=== PATIENT | male | born 1945 | race Caucasian/White ===

== ENCOUNTER 2017-02-08 11:18 | Emergency (ER) | payer OTHER, MEDICARE ==
--- NOTE | 2017-02-08 13:14 | EDPHY ---
H & P Time Seen by Provider: 02/08/17 11:42 HPI/ROS: HPI Left shoulder pain. 71-year-old male by private vehicle. He reports that 1 week ago he was pushing himself out of bed. He pushed off of his left hand and left shoulder felt a sudden pop to the anterior superior aspect of the left shoulder. He reports that since then he has had pain to the left shoulder. He reports the pain is worse with movement. He denies any loss of sensation or weakness in his left upper extremity. There is no history of fall or other acute traumatic event. No chest pain. No shortness of breath. ROS: Constitutional: No fever, no chills. No weakness. Eyes: No discharge. No changes in vision. ENT: No sore throat. No nasal congestion or rhinorrhea. Respiratory: No cough. No shortness of breath. Cardiac: No chest pain, no palpitations. Gastrointestinal: No abdominal pain, no vomiting, no diarrhea. Genitourinary: No hematuria. No dysuria or increased frequency with urination. Musculoskeletal: No back pain. No neck pain. No myalgias or arthralgias. Skin: No rashes. Neurological: No headache. No focal weakness or altered sensation. Past medical history: Coronary artery disease, diabetes, renal insufficiency, hypertension, chronic pain, opiate dependence, CABG, stents, peripheral neuropathy, hypoxia, obesity. Social history: He is and lives with his . Denies smoking. Physical Exam: General Appearance: Alert, no distress. Obese habitus. This patient is responding to questions appropriately and in full sentences. This patient appears well-hydrated and well-nourished. Eyes: Pupils equal and round no pallor or injection. No lid edema, erythema or injection. Left shoulder exam: The axillary nerve distribution is intact. The left upper extremity is intact. Palpable radial pulses with normal capillary refill in all digits. Normal motor function and sensation in all dermatomes and myotomes of the left upper extremity. No obvious asymmetrical deformity on gross inspection of left shoulder in comparison to the right shoulder. He does have pain with passive and active ranging of motion in flexion, extension, AB duction and rotation of the left shoulder. There is no soft tissue changes associated. Specifically no ecchymosis, no swelling, no erythema or warmth. No asymmetric swelling of the left upper extremity relative to the right upper extremity. Neurological: Motor sensory function is grossly intact. Cranial nerves are normal. Gait is normal. Skin: Warm and dry, no rashes. Musculoskeletal: Neck is supple and nontender. As above Extremities are symmetrical. All joints range without pain or impingement except noted above. Psychiatric: No agitation. No depression. Database: EKG: Imaging: Left shoulder x-ray series: The humeral head is normally located in the glenoid fossa. There is no evidence of fracture or subluxation. The bony alignment is normal. Interpreted by me. Procedures: Emergency department course: Patient sent for x-rays right after my evaluation. Patient re-evaluated at 1: 10 p.m.. Results of x-rays discussed. Diagnosis of possible rotator cuff injury versus an adhesive capsulitis type syndrome discussed with him. Left upper extremity was placed in a sling. Plan will be to have him follow up with Orthopedics for re-evaluation and further management. He is in agreement with this. He has narcotic pain medications which she has been taking chronically. He is in agreement with this plan. He understands his follow-up. Return to emergency department precautions reviewed. All of his questions were answered. He was discharged in good condition. Differential Diagnosis: The differential diagnosis on this patient includes but is not limited to adhesive capsulitis, rotator cuff injury. Fracture, subluxation, dislocation, acute coronary syndrome unlikely. This represents a partial list of diagnoses considered. These considerations are based on history, physical exam, past history, reassessment and diagnostic testing. Smoking Status: Former smoker Constitutional: Initial Vital Signs Temperature (C) 36.8 C 02/08/17 11:21 Heart Rate 84 02/08/17 11:21 Respiratory Rate 18 02/08/17 11:21 Blood Pressure 148/79 H 02/08/17 11:21 O2 Delivery Mode Room Air Allergies/Adverse Reactions: hydroxyzine HCl [From Vistaril] Allergy (Intermediate, Verified 05/11/16 02:51) hydroxyzine pamoate [From Vistaril] Allergy (Intermediate, Verified 05/11/16 02: 51) flurazepam HCl [From Dalmane] Allergy (Mild, Verified 05/11/16 02:51) trazodone Allergy (Mild, Verified 05/11/16 02:51) propoxyphene HCl [From Darvon] Allergy (Verified 05/11/16 02:51) zolpidem tartrate [From Ambien] Allergy (Verified 05/11/16 02:51) Home Medications: Medication Instructions Recorded ATORVASTATIN CALCIUM [Lipitor 80 40 mg PO DAILY 06/05/11 mg] Aspirin [Aspirin 325 mg (*)] 325 mg PO DAILY 06/05/11 Clopidogrel Bisulfate [Plavix (*)] 75 mg PO DAILY 06/05/11 Furosemide [Lasix 80 MG (*)] 40 mg PO DAILY 06/05/11 Losartan Potassium [Cozaar 50 mg 50 mg PO DAILY 06/05/11 (*)] Pregabalin [LYRICA] 300 mg PO BID 06/05/11 Triamcinolone Acet Nasal [Nasacort 1 sprays NASAL DAILY 06/05/11 Aq] Metoprolol Succinate Xr [Toprol Xl 25 mg PO DAILY 01/03/15 25 mg (*)] Pantoprazole Sodium [Protonix 40mg 40 mg PO DAILY 01/03/15 (*)] Spironolactone [Aldactone] 50 mg PO DAILY 01/03/15 clonazePAM [Klonopin (*)] 0.5 mg PO BID PRN 01/03/15 oxyCODONE CR [Oxycontin] 80 mg PO BID 01/03/15 oxyCODONE IR [Oxycodone Ir (*)] 30 mg PO Q6 PRN 01/03/15 DULoxetine [Cymbalta 30 MG (*)] 90 mg PO DAILY 05/11/16 Testosterone 5 gm TP Q2D 05/13/16 Insulin Glargine [Lantus 100 10 units SC HS #0 ml 05/20/16 UNITS/ML (*)] Insulin Lispro [Humalog] 100 unit SQ ACHS #0 ml 05/20/16 Pregabalin [Lyrica] 25 mg PO BID #0 cap 05/20/16 Protocol Potassium 1 dose MISC AD PRN #0 dose 05/20/16 Spironolactone [Aldactone 25 MG 50 mg PO DAILY #0 tab 05/20/16 (*)] Departure - Departure Disposition: Home, Routine, Self-Care Clinical Impression: Injury of left shoulder Condition: Good Instructions: Rotator Cuff Injury (ED), Shoulder Sprain (ED) Additional Instructions: Read and follow provided instructions. Follow-up with your credit collections specialist or with Dr. Colleen Junior of the Orthopedic service as referred to you for re-evaluation and further management in the next 2-3 days. You may require an MRI of your left shoulder for further diagnosis. Take your pain medication as prescribed. Return to the emergency department for worsening pain, loss of sensation or weakness in her left upper extremity or other serious concerns. Referrals: Kristina Isbell MD [Primary Care Provider] - As per Instructions Colleen Junior MD [Medical Doctor] - As per Instructions
[2017-02-08 13:32] VITALS: BP 126/90; PULSE 85; RESP 18; TEMP 97.5; O2SAT 92
== END 2017-02-08 13:33 | disposition home or self-care (01) ==
DX: S49.92XA Unspecified injury of left shoulder and upper arm, initial encounter (principal); I25.810 Atherosclerosis of coronary artery bypass graft(s) without angina pectoris; E11.9 Type 2 diabetes mellitus without complications; I10 Essential (primary) hypertension; Z95.5 Presence of coronary angioplasty implant and graft; Z87.891 Personal history of nicotine dependence; Z79.82 Long term (current) use of aspirin; Z79.4 Long term (current) use of insulin; X58.XXXA Exposure to other specified factors, initial encounter; Y93.89 Activity, other specified

== ENCOUNTER → 2017-02-28 | Outpatient (CLI) | payer OTHER, MEDICARE | LOC: FIMAGING 12:15 | PROVIDERS: ATTEND Surgery | DX: L97.519 Non-pressure chronic ulcer of other part of right foot with unspecified severity (principal) ==

== ENCOUNTER 2017-03-23 21:10 | Emergency (ER) | payer OTHER, MEDICARE ==
--- NOTE | 2017-03-23 22:50 | EDPHY ---
H & P Time Seen by Provider: 03/23/17 21:17 HPI/ROS: CHIEF COMPLAINT: Fall, left ear laceration HISTORY OF PRESENT ILLNESS: 71-year-old male presents to the emergency department with a laceration to his left ear. The patient was at home and he tripped over a piece of exercise equipment and fell and cut his left ear. The incident happened just prior to arrival. He did not lose consciousness. He denies a headache. Denies neck or back pain. Denies chest pain or difficulty breathing. Denies abdominal pain. Denies any presyncopal symptoms prior to his fall. He believes his tetanus shot is current. REVIEW OF SYSTEMS: Constitutional: No fever, no chills. Eyes: No double or blurry vision. ENT: No sore throat. Respiratory: No cough, no shortness of breath. Cardiac: No chest pain. Gastrointestinal: No abdominal pain, vomiting or diarrhea. Genitourinary: No dysuria. Musculoskeletal: No neck or back pain. Skin: Laceration left ear as above. No rashes. Neurological: No headache. 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 Mentating normally and answering questions appropriately. His is at bedside. Eyes: Pupils equal and round. Extraocular motions are all intact. ENT: Mouth: Mucous membranes moist. 3.5 cm laceration extending from the left mid antehelix to mary. No active bleeding noted. The laceration does not extend into the external auditory canal. Tympanic membrane is intact. There is no bruising or swelling or pain with palpation over the left mastoid bone. Respiratory: No wheezing, rhonchi, or rales, lungs are clear to auscultation. Cardiovascular: Regular rate and rhythm. Gastrointestinal: Abdomen is soft and nontender, no masses, no rebound or guarding, bowel sounds normal. Neurological: Alert and oriented x 3, cranial nerves II through XII grossly intact Skin: Laceration to left ear as described above. Warm and dry, no rashes. Musculoskeletal: Nontender to palpate along the cervical, thoracic or lumbar spine. Neck is supple. Extremities: Full range of motion and no peripheral edema. Right posterior lateral foot has a chronic infection. The dressing was removed. He has daily dressing changes by home health. There is no purulent drainage. There is packing in place that was not removed. His dressing was replaced. Psychiatric: Patient is oriented X 3, there is no agitation. Constitutional: Initial Vital Signs Temperature (C) 36.9 C 03/23/17 21:13 Heart Rate 62 03/23/17 21:13 Respiratory Rate 17 03/23/17 21:13 Blood Pressure 145/85 H 03/23/17 21:13 O2 Sat (%) 90 L 03/23/17 21:13 O2 Delivery Mode Room Air Allergies/Adverse Reactions: hydroxyzine HCl [From Vistaril] Allergy (Intermediate, Verified 05/11/16 02:51) hydroxyzine pamoate [From Vistaril] Allergy (Intermediate, Verified 05/11/16 02: 51) flurazepam HCl [From Dalmane] Allergy (Mild, Verified 05/11/16 02:51) trazodone Allergy (Mild, Verified 05/11/16 02:51) propoxyphene HCl [From Darvon] Allergy (Verified 05/11/16 02:51) zolpidem tartrate [From Ambien] Allergy (Verified 05/11/16 02:51) Home Medications: Medication Instructions Recorded ATORVASTATIN CALCIUM [Lipitor 80 40 mg PO DAILY 06/05/11 mg] Aspirin [Aspirin 325 mg (*)] 325 mg PO DAILY 06/05/11 Clopidogrel Bisulfate [Plavix (*)] 75 mg PO DAILY 06/05/11 Furosemide [Lasix 80 MG (*)] 40 mg PO DAILY 06/05/11 Losartan Potassium [Cozaar 50 mg 50 mg PO DAILY 06/05/11 (*)] Pregabalin [LYRICA] 300 mg PO BID 06/05/11 Triamcinolone Acet Nasal [Nasacort 1 sprays NASAL DAILY 06/05/11 Aq] Metoprolol Succinate Xr [Toprol Xl 25 mg PO DAILY 01/03/15 25 mg (*)] Pantoprazole Sodium [Protonix 40mg 40 mg PO DAILY 01/03/15 (*)] Spironolactone [Aldactone] 50 mg PO DAILY 01/03/15 clonazePAM [Klonopin (*)] 0.5 mg PO BID PRN 01/03/15 oxyCODONE CR [Oxycontin] 80 mg PO BID 01/03/15 oxyCODONE IR [Oxycodone Ir (*)] 30 mg PO Q6 PRN 01/03/15 DULoxetine [Cymbalta 30 MG (*)] 90 mg PO DAILY 05/11/16 Testosterone 5 gm TP Q2D 05/13/16 Insulin Glargine [Lantus 100 10 units SC HS #0 ml 05/20/16 UNITS/ML (*)] Insulin Lispro [Humalog] 100 unit SQ ACHS #0 ml 05/20/16 Pregabalin [Lyrica] 25 mg PO BID #0 cap 05/20/16 Protocol Potassium 1 dose MISC AD PRN #0 dose 05/20/16 Spironolactone [Aldactone 25 MG 50 mg PO DAILY #0 tab 05/20/16 (*)] Medical Decision Making Procedures: Laceration repair. Verbal consent was obtained from the patient. The the 3.5 cm laceration on the left ear was anesthetized using 1% lidocaine with epinephrine. The wound was irrigated with saline, draped and explored to its base with a gloved finger. There were no deep structures involved. The wound was repaired with 6 0 Ethilon, 12 sutures. The wound repair was complex. The procedure was performed by myself. ED Course/Re-evaluation: 71-year-old male with mechanical fall presents with left ear injury. The wound was repaired, see procedure note. Patient was given wound care precautions. I do not think any imaging studies are indicated. Patient feels comfortable being discharged home. Differential Diagnosis: Head injury including but not limited to concussion, skull fracture, intraparenchymal contusion, subarachnoid, subdural and epidural hematoma. Departure - Departure Disposition: Home, Routine, Self-Care Clinical Impression: Laceration of left ear, external Qualifiers: Encounter type: initial encounter Qualified Code(s): S01.312A - Laceration without foreign body of left ear, initial encounter Condition: Good Instructions: Care For Your Stitches (ED), Laceration (ED), Acute Wounds (ED) Additional Instructions: Wound Care Follow-Up: Removal of sutures in 7 days. Suture removal is complimentary in uncomplicated cases. Infection or abnormal findings would require reevaluation by the MD. In that case, you may be billed. Return if you notice any signs or symptoms of infection such as redness, swelling, increased pain, fever, purulent drainage. Referrals: Kristina Isbell MD [Primary Care Provider] - As per Instructions
[2017-03-23 23:07] VITALS: BP 117/70; PULSE 63; RESP 16; TEMP 97.9; O2SAT 94
== END 2017-03-23 23:07 | disposition home or self-care (01) ==
PROC: 09Q1XZZ Repair Left External Ear, External Approach (ICD-10-PCS; principal; 2017-03-23)
DX: S01.312A Laceration without foreign body of left ear, initial encounter (principal); I25.810 Atherosclerosis of coronary artery bypass graft(s) without angina pectoris; I10 Essential (primary) hypertension; Z79.82 Long term (current) use of aspirin; Z95.5 Presence of coronary angioplasty implant and graft; Z87.891 Personal history of nicotine dependence; W01.0XXA Fall on same level from slipping, tripping and stumbling without subsequent striking against object, initial encounter; Y92.009 Unspecified place in unspecified non-institutional (private) residence as the place of occurrence of the external cause

== ENCOUNTER → 2017-04-05 | Outpatient (CLI) | payer OTHER, MEDICARE | LOC: BHFA 08:30 | PROVIDERS: ATTEND Internal Medicine Cardiovascular Disease | DX: I25.10 Atherosclerotic heart disease of native coronary artery without angina pectoris (principal) | CPT/HCPCS: 78452; 93017; A9500; J2785 ==

== ENCOUNTER → 2017-04-27 | Outpatient (CLI) | payer OTHER, MEDICARE | LOC: BHFA 14:00 | PROVIDERS: ATTEND Internal Medicine Cardiovascular Disease | DX: Z01.818 Encounter for other preprocedural examination (principal); I25.10 Atherosclerotic heart disease of native coronary artery without angina pectoris ==

== ENCOUNTER 2017-05-25 06:13 | Observation (INO) | payer OTHER, MEDICARE ==
[2017-05-25] MEDS ORDERED: LR 1,000 ML IV ONE (06:23)
[2017-05-25] MEDS ORDERED: BUPIVACAINE 0.5% 30 ML SDV ONE (07:12)
[2017-05-25] MEDS ORDERED: VANCOMYCIN PHARMACY TO DOSE MISC ONE (07:26)
--- NOTE | 2017-05-25 07:26 | PDHPUP ---
History & Physical Update H&P update statement: This history and physical update is based on an assessment of the patient which was completed after admission or registration (within 24 hours), but prior to the surgery/procedure. H&P update: H&P reviewed & patient examined, no change in patient's condition since H&P completed
--- NOTE | 2017-05-25 07:43 | PDANEPAE ---
ANE Past Medical History - Cardiovascular History Hx Hypertension: Yes Hx Arrhythmias: No Hx Chest Pain: No Hx Coronary Artery / Peripheral Vascular Disease: Yes Hx CHF / Valvular Disease: No Cardiovascular History Comment: STENTS X3. GABG X4. PULMONARY HTN - Pulmonary History Hx COPD: No Hx Asthma/Reactive Airway Disease: No Hx Recent Upper Respiratory Infection: No Hx Oxygen in Use at Home: No Hx Sleep Apnea: Yes Sleep Apnea Screening Result - Last Documented: Positive Pulmonary History Comment: CONSTANTIN USES C-PAP WILL ONLY BRING MASK. SINUS INFECTION 02/2017. PNEUMONIA 2014 - Neurologic History Hx Cerebrovascular Accident: No Hx Seizures: No Hx Dementia: No - Endocrine History Hx Diabetes: Yes Endocrine History Comment: IDDM - Renal History Hx Renal Disorders: Yes Renal History Comment: CHRONIC KIDNEY DISEASE STAGE 3. NOCTURIA - Liver History Hx Hepatic Disorders: No - Neurological & Psychiatric Hx Hx Neurological and Psychiatric Disorders: Yes Neurological / Psychiatric History Comment: ANXIETY AND DEPRESSION - Cancer History Hx Cancer: No - Congenital Disorder History Hx Congenital Disorders: No - GI History Hx Gastrointestinal Disorders: Yes Gastrointestinal History Comment: GERD - Other Health History Other Health History: FOOT INFECTION/ULCER/SEPSIS. RESULT OF STEPPING ON IAN NAIL. PERIPHERAL NEUROPATHY - Chronic Pain History Chronic Pain: Yes (LUMBAR SPINE,RT FOOT) - Surgical History Prior Surgeries: GABG X4 96. LUMBAR LAMINECTOMY. RT FOOTDEBRIDEMENT/SEPSIS 2015 ANE Review of Systems - Exercise capacity METS (RN): 4 METS ANE Patient History - Allergies Allergies/Adverse Reactions: hydroxyzine HCl [From Vistaril] Allergy (Intermediate, Verified 05/11/16 02:51) hydroxyzine pamoate [From Vistaril] Allergy (Intermediate, Verified 05/11/16 02: 51) flurazepam HCl [From Dalmane] Allergy (Mild, Verified 05/11/16 02:51) trazodone Allergy (Mild, Verified 05/11/16 02:51) propoxyphene HCl [From Darvon] Allergy (Verified 05/11/16 02:51) zolpidem tartrate [From Ambien] Allergy (Verified 05/11/16 02:51) - Home Medications Home Medications: ATORVASTATIN CALCIUM [Lipitor 80 mg] 40 mg PO HS 06/05/11 [Last Taken 05/24/17 21:00] Aspirin [Aspirin 325 mg (*)] 325 mg PO DAILY 06/05/11 [Last Taken 05/24/17 21:00 ] Clopidogrel Bisulfate [Plavix (*)] 75 mg PO DAILY 06/05/11 [Last Taken 05/22/17] Furosemide [Lasix 80 MG (*)] 40 mg PO DAILY 06/05/11 [Last Taken 05/24/17 21:00] Losartan Potassium [Cozaar 50 mg (*)] 50 mg PO DAILY 06/05/11 [Last Taken 09:00] Pregabalin [LYRICA] 300 mg PO BID 06/05/11 [Last Taken 05/24/17 21:00] Triamcinolone Acet Nasal [Nasacort Aq] 1 sprays NASAL DAILY 06/05/11 [Last Taken 05/24/17 09:00] Metoprolol Succinate Xr [Toprol Xl 25 mg (*)] 25 mg PO DAILY 01/03/15 [Last Taken 05/24/17 09:00] Pantoprazole Sodium [Protonix 40mg (*)] 40 mg PO DAILY 01/03/15 [Last Taken 09:00] Spironolactone [Aldactone] 50 mg PO HS 01/03/15 [Last Taken 05/24/17 09:00] oxyCODONE CR [Oxycontin] 80 mg PO BID 01/03/15 [Last Taken 05/24/17 21:00] DULoxetine [Cymbalta 30 MG (*)] 60 mg PO HS 05/11/16 [Last Taken 05/24/17 21:00] Testosterone 5 gm TP Q2D 05/13/16 [Last Taken 05/24/17 09:00] Insulin Glargine [Lantus 100 UNITS/ML (*)] 50 units SC DAILY 05/24/17 [Last Taken Unknown] - NPO status NPO Since - Liquids (Date): 05/25/17 NPO Since - Liquids (Time): 05:30 NPO Since - Solids (Date): 05/25/17 NPO Since - Solids (Time): 00:00 - Anes Hx Anes Hx: no prior problems - Smoking Hx Smoking Status: Former smoker - Alcohol Use Alcohol Use: None ANE Labs/Vital Signs - Vital Signs Blood Pressure: 152/86 Heart Rate: 69 Respiratory Rate: 18 O2 Sat (%): 90 Height: 172.72 cm Weight: 109.769 kg ANE Physical Exam - Airway Mallampati Score: Class 3 Mouth exam: poor dentition - Pulmonary Pulmonary: no respiratory distress, clear to auscultation - Cardiovascular Cardiovascular: regular rate and rhythym - ASA Status ASA Status: III ANE Anesthesia Plan Anesthesia Plan: GA w LMA
[2017-05-25] MEDS ORDERED: MIDAZOLAM 2 MG/2 ML VIAL IVP ONE (07:45)
[2017-05-25] MEDS ORDERED: MIDAZOLAM 2 MG/2 ML VIAL ONE (07:48)
[2017-05-25] MEDS ORDERED: VANCOMYCIN 1.5 GM in D5W 250 ML IV ONE (08:00)
[2017-05-25] MEDS ORDERED: PROPOFOL 200 MG/20 ML VIAL ONE (08:03)
[2017-05-25] MEDS ORDERED: fentaNYL 100 MCG/2 ML INJ ONE (08:03)
[2017-05-25] MEDS ORDERED: NALOXONE HCL 0.4 MG/ML INJ IVP PRN (08:52)
[2017-05-25] MEDS ORDERED: PROMETHAZINE HCL 25 MG/ML INJ IVP PRN (08:52)
[2017-05-25] MEDS ORDERED: ONDANSETRON 4 MG/2 ML VIAL IVP PRN ×3 (08:52→13:19)
[2017-05-25] MEDS ORDERED: fentaNYL 100 MCG/2 ML INJ IVP PRN (08:52)
--- NOTE | 2017-05-25 09:02 | POSTOPPROG ---
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
--- NOTE | 2017-05-25 11:37 | POSTANESTH ---
Post Anesthetic Evaluation Cardiovascular Status: Normal, Stable Respiratory Status: Normal, Stable Level of Consciousness/Mental Status: Can Participate in Eval, Alert and Oriented Pain Control: Adequate, Prn Tx Ordered Nausea/Vomiting Control: Adequate, Prn Tx Ordered Complications Possibly Related to Anesthesia: None Noted
[2017-05-25] MEDS ORDERED: HYDROmorphONE/DILAUDID 1 MG/ML SYR IVP PRN (13:19)
[2017-05-25] MEDS: OXYCODONE/APAP 5/325 TAB PO PRN ×2 (17:47→21:57)
[2017-05-25] MEDS ORDERED: ATORVASTATIN CALCIUM 40 MG PO SCH (21:00)
[2017-05-25] MEDS ORDERED: DULoxetine 30 MG CAP PO SCH (21:00)
[2017-05-25] MEDS ORDERED: ATORVASTATIN CALCIUM 40 MG TAB PO SCH (21:00)
[2017-05-25] MEDS ORDERED: PREGABALIN 300 MG PO SCH (21:00)
[2017-05-25] MEDS ORDERED: SPIRONOLACTONE 50 MG TAB PO SCH (21:00)
[2017-05-25] MEDS: PREGABALIN 150 MG CAP PO SCH (21:53)
[2017-05-25] MEDS ORDERED: INSULIN GLARGINE 100 UNITS/ML SYRINGE SC ONE (23:45)
[2017-05-26] MEDS: OXYCODONE/APAP 5/325 TAB PO PRN (05:18)
[2017-05-26] MEDS: PREGABALIN 150 MG CAP PO SCH (08:44)
[2017-05-26] MEDS ORDERED: METOPROLOL SUCCINATE XR 25 MG TAB PO SCH (09:00)
[2017-05-26] MEDS ORDERED: FUROSEMIDE 80 MG TAB PO SCH (09:00)
[2017-05-26] MEDS ORDERED: CLOPIDOGREL BISULFATE 75 MG TAB PO SCH (09:00)
[2017-05-26] MEDS ORDERED: TRIAMCINOLONE ACET NASAL SCH (09:00)
[2017-05-26] MEDS ORDERED: PANTOPRAZOLE SODIUM 40 MG TAB PO SCH (09:00)
[2017-05-26] MEDS ORDERED: INSULIN GLARGINE 100 UNITS/ML SYRINGE SC SCH (09:00)
[2017-05-26] MEDS ORDERED: LOSARTAN POTASSIUM 50 MG TAB PO SCH (09:00)
[2017-05-26] MEDS ORDERED: TESTOSTERONE 1% 5 GM GEL PKT TD SCH (09:00)
[2017-05-26] MEDS ORDERED: ASPIRIN 325 MG TAB PO SCH (09:00)
[2017-05-26 11:20] VITALS: BP 120/70; PULSE 63; RESP 16; TEMP 98; O2SAT 97
[2017-05-26] MEDS ORDERED: ceFAZolin 2 GM/DEXTROSE 100 ML IV ONE (12:00)
--- NOTE | 2017-05-26 13:12 | SOAPPROG ---
SOAP Progress Note Assessment/Plan: Assessment: WOUND OK/ AFEBRILE/ NO PROBLEMS Plan:HOME/ OFFICE Sunday05/26/17 13:11 Objective: Vital Signs Temp Pulse Resp BP Pulse Ox 36.7 C 63 16 120/70 97 05/26/17 11:19 05/26/17 11:19 05/26/17 11:19 05/26/17 11:19 05/26/17 11:19 Microbiology 05/25/17 08:45 Gram Stain - Final Toe - Bone 05/25/17 05/26/17 05/27/17 05:59 05:59 05:59 Intake Total 1250 Output Total 500 Balance 750 ICD10 Worksheet Patient Problems: Problems Problem Status Onset Cellulitis Acute Chronic Disease Mgmt/Transitional Care Acute Laceration of left ear, external Acute Sepsis Acute
[2017-05-27] MEDS ORDERED: TESTOSTERONE 1% 5 GM GEL PKT TD SCH (09:00)
== END 2017-05-26 14:02 | disposition home or self-care (01) ==
LOC: F3N 06:13 → FSGY 06:13 → UNDOADMOB 06:13 → INTOOBSV 06:14 → F3N 06:14 → EDSTATUS 07:15 → F3N 14:11
PROVIDERS: ADMIT Surgery; ATTEND Surgery
PROC: 0Y6M0Z8 Detachment at Right Foot, Complete 5th Ray, Open Approach (ICD-10-PCS; principal; 2017-05-25 07:15)
DX: L97.514 Non-pressure chronic ulcer of other part of right foot with necrosis of bone (principal); M86.171 Other acute osteomyelitis, right ankle and foot; Z95.1 Presence of aortocoronary bypass graft; Z95.5 Presence of coronary angioplasty implant and graft; I27.2 Other secondary pulmonary hypertension
CPT/HCPCS: 28805; 97161; 97165; G8978; G8979; G8980; G8987; G8988; G8989; J0690; J1815; J2250; J2704; J3010; J3370

== ENCOUNTER 2017-06-03 09:14 | Inpatient (IN) | payer OTHER, MEDICARE ==
--- NOTE | 2017-06-03 10:06 | EDPHY ---
H & P Time Seen by Provider: 06/03/17 09:23 HPI/ROS: Chief complaint. Possible postop infection, diarrhea HPI. 71-year-old male history of insulin-dependent diabetes had right 5th metatarsal amputation May 25 secondary to osteomyelitis. It has continued to ooze and bleed with the family changing dressings daily. He has diarrhea that began yesterday. The patient had been on cephalexin for 2 months prior to his surgery. He has no nausea or vomiting. He does have some abdominal cramping. No fever. New redness across the dorsum of his foot ROS Constitutional. no fever/chills, no weakness Eyes. no problems with vision ENT. no sore throat, no nasal drainage Cardiovascular. no chest pain Respiratory. no shortness of breath, no cough Abdominal. Crampy abdominal pain with diarrhea . no problems urinating MS. Recent amputation of the right 5th metatarsal and toe Skin. erythema to dorsum of foot Lymph. no swollen glands Neuro. no headache, no dizziness, no difficulty walking or with speech Past Medical/Surgical History: Past medical history significant coronary artery disease status post coronary artery bypass graft. Insulin-dependent diabetes, chronic renal insufficiency, hypertension, chronic pain, neuropathy Social History: , nonsmoker, no alcohol Smoking Status: Former smoker Physical Exam: General Appearance: Alert well-developed male mild distress vital signs are stable. Afebrile Eyes: Pupils equal and round no pallor or injection. ENT, Mouth: Mucous membranes are moist. Respiratory: There are no retractions, lungs are clear to auscultation. Cardiovascular: Regular rate and rhythm. Gastrointestinal: Abdomen is soft with mild tenderness. No masses. Bowel sounds are normal Neurological: Awake and alert, sensory and motor exams grossly normal. Skin: Warm and dry, no rashes. Musculoskeletal: Neck is supple nontender. Extremities sequelae of 5th metatarsal amputation 10 days ago. There is erythema on the dorsum of the foot. There is mild serous drainage from the wound. Psychiatric: Patient is oriented X 3, there is no agitation. Constitutional: Initial Vital Signs Temperature (C) 36.5 C 06/03/17 09:15 Heart Rate 89 06/03/17 09:15 Respiratory Rate 16 06/03/17 09:15 Blood Pressure 130/78 H 06/03/17 09:15 O2 Sat (%) 93 06/03/17 09:15 O2 Delivery Mode Room Air Allergies/Adverse Reactions: hydroxyzine HCl [From Vistaril] Allergy (Intermediate, Verified 05/11/16 02:51) hydroxyzine pamoate [From Vistaril] Allergy (Intermediate, Verified 05/11/16 02: 51) flurazepam HCl [From Dalmane] Allergy (Mild, Verified 05/11/16 02:51) trazodone Allergy (Mild, Verified 05/11/16 02:51) propoxyphene HCl [From Darvon] Allergy (Verified 05/11/16 02:51) zolpidem tartrate [From Ambien] Allergy (Verified 05/11/16 02:51) Home Medications: Medication Instructions Recorded ATORVASTATIN CALCIUM [Lipitor 80 40 mg PO HS 06/05/11 mg] Aspirin [Aspirin 325 mg (*)] 325 mg PO HS 06/05/11 Clopidogrel Bisulfate [Plavix (*)] 75 mg PO DAILY 06/05/11 Furosemide [Lasix 80 MG (*)] 40 mg PO HS 06/05/11 Losartan Potassium [Cozaar 50 mg 50 mg PO DAILY 06/05/11 (*)] Pregabalin [LYRICA] 300 mg PO BID 06/05/11 Triamcinolone Acet Nasal [Nasacort 1 sprays NASAL DAILY 06/05/11 Aq] Metoprolol Succinate Xr [Toprol Xl 25 mg PO DAILY 01/03/15 25 mg (*)] Pantoprazole Sodium [Protonix 40mg 40 mg PO DAILY 01/03/15 (*)] oxyCODONE CR [Oxycontin] 80 mg PO BID 01/03/15 DULoxetine [Cymbalta 30 MG (*)] 60 mg PO HS 05/11/16 Testosterone 5 gm TP Q2D 05/13/16 Insulin Glargine [Lantus 100 50 units SC DAILY 05/24/17 UNITS/ML (*)] Cephalexin [Keflex (*)] 500 mg PO TID 05/25/17 Medical Decision Making Procedures: IV normal saline. Stool sample ED Course/Re-evaluation: I consulted and discussed the case with Dr. Wilkins who will see the patient in the emergency department Patient stool sample comes back for Clostridium difficile. Patient and I discussed laboratory evaluation, treatment plan including recommendation for admission. Patient expresses understanding and agreement I consulted discussed case with Dr. Beatris Herrera who agrees to the admission Differential Diagnosis: Recent surgery for osteomyelitis. He has cellulitis of the wound. Patient is insulin-dependent diabetic and has poor blood sugar control with hyperglycemia at about 360. No evidence for DKA however. He also now has Clostridium difficile too - Data Points Laboratory Results: Laboratory Results 06/03/17 10:25 06/03/17 10:25 06/03/17 06/03/17 06/03/17 10:25 10:25 10:10 WBC 7.44 10^3/uL 10^3/uL (3.80-9.50) RBC 5.86 10^6/uL 10^6/uL (4.40-6.38) Hgb 15.5 g/dL g/dL (13.7-17.5) Hct 49.1 % % (40.0-51.0) MCV 83.8 fL fL (81.5-99.8) MCH 26.5 pg L pg (27.9-34.1) MCHC 31.6 g/dL L g/dL (32.4-36.7) RDW 14.7 % % (11.5-15.2) Plt Count 218 10^3/uL 10^3/uL (150-400) MPV 11.3 fL fL (8.7-11.7) Neut % (Auto) 68.3 % % (39.3-74.2) Lymph % (Auto) 19.6 % % (15.0-45.0) [place] % (Auto) 8.6 % % (4.5-13.0) Eos % (Auto) 3.1 % % (0.6-7.6) Baso % (Auto) 0.3 % % (0.3-1.7) Nucleat RBC Rel Count 0.0 % % (0.0-0.2) Absolute Neuts (auto) 5.08 10^3/uL 10^3/uL (1.70-6.50) Absolute Lymphs (auto) 1.46 10^3/uL 10^3/uL (1.00-3.00) Absolute Monos (auto) 0.64 10^3/uL 10^3/uL (0.30-0.80) Absolute Eos (auto) 0.23 10^3/uL 10^3/uL (0.03-0.40) Absolute Basos (auto) 0.02 10^3/uL 10^3/uL (0.02-0.10) Absolute Nucleated RBC 0.00 10^3/uL 10^3/uL (0-0.01) Immature Gran % 0.1 % % (0.0-1.1) Immature Gran # 0.01 10^3/uL 10^3/uL (0.00-0.10) Sodium 132 mEq/L L mEq/L (134-144) Potassium 5.4 mEq/L H mEq/L (3.5-5.2) Chloride 95 mEq/L L mEq/L (97-110) Carbon Dioxide 25 mEq/l mEq/l (22-31) Anion Gap 12 mEq/L mEq/L (8-16) BUN 31 mg/dL H mg/dL (7-23) Creatinine 1.6 mg/dL H mg/dL (0.7-1.3) Estimated GFR 43 Glucose 374 mg/dL H mg/dL (70-100) Calcium 9.7 mg/dL mg/dL (8.5-10.4) Urine Color PALE YELLOW Urine Appearance CLEAR Urine pH 6.0 (5.0-7.5) Ur Specific [place] 1.023 (1.002-1.030) Urine Protein NEGATIVE (NEGATIVE) Urine Ketones NEGATIVE (NEGATIVE) Urine Blood NEGATIVE (NEGATIVE) Urine Nitrate NEGATIVE (NEGATIVE) Urine Bilirubin NEGATIVE (NEGATIVE) Urine Urobilinogen NEGATIVE EU EU (0.2-1.0) Ur Leukocyte Esterase NEGATIVE (NEGATIVE) Urine RBC NONE SEEN /hpf /hpf (0-3) Urine WBC 1-3 /hpf /hpf (0-3) Ur Epithelial Cells NONE SEEN /lpf /lpf (NONE-1+) Urine Mucus TRACE /lpf /lpf (NONE-1+) Urine Glucose 3+ H (NEGATIVE) Microbiology Results: MICROBIOLOGY 06/03/17 10:10 Stool Gastrointestinal Tract Panel (PCR) - Final Clostridium Difficile Detected E.coli Enteropathogenic(Epec) Departure - Departure Disposition: [facility] Inpatient Acute Clinical Impression: Clostridium difficile diarrhea Cellulitis Qualifiers: Site of cellulitis: extremity Site of cellulitis of extremity: lower extremity Laterality: right Qualified Code(s): L03.115 - Cellulitis of right lower limb Condition: Fair Referrals: Kristina Isbell MD [Primary Care Provider] - As per Instructions
[2017-06-03 10:38] LABS: COLOR PALE YELLOW; LEUKOCYTE ESTERASE,URINE NEGATIVE (NEGATIVE); NITRITE,URINE NEGATIVE (NEGATIVE)
[2017-06-03 10:43] LABS: MUCUS TRACE /lpf (NONE-1+); RBC,URINE NONE SEEN /hpf (0-3)
[2017-06-03 11:34] LABS: % IMMATURE GRANULYOCYTES 0.1 % (0.0-1.1); ABSOLUTE IMMATURE GRANULOCYTES 0.01 10^3/uL (0.00-0.10); ADD DIFF? NO; ADD MORPH? NO; ADD SCAN? NO; ATYPICAL LYMPHOCYTE FLAG 0 (0-99); FRAGMENT RBC FLAG 0 (0-99); HEMATOCRIT 49.1 % (40.0-51.0); HEMOGLOBIN 15.5 g/dL (13.7-17.5); LEFT SHIFT FLG 0 (0-99); LIPEMIA HEMOLYSIS FLAG 80 (0-99); MEAN CELL HEMOGLOBIN 26.5 pg (27.9-34.1); MEAN CELL HEMOGLOBIN CONCENTR. 31.6 g/dL (32.4-36.7); MEAN CELL VOLUME 83.8 fL (81.5-99.8); MEAN PLATELET VOLUME 11.3 fL (8.7-11.7); PLATELET CLUMPS FLAG 10 (0-99); PLATELET COUNT 218 10^3/uL (150-400); RED BLOOD CELL COUNT 5.86 10^6/uL (4.40-6.38); RED CELL DISTRIBUTION WIDTH 14.7 % (11.5-15.2)
[2017-06-03 11:40] LABS: ANION GAP 12 mEq/L (8-16); CALCIUM 9.7 mg/dL (8.5-10.4); CARBON DIOXIDE 25 mEq/l (22-31); CHLORIDE 95 mEq/L (97-110); CREATININE 1.6 mg/dL (0.7-1.3); GLOMERULAR FILTRATION RATE 43; GLUCOSE 374 mg/dL (70-100); POTASSIUM 5.4 mEq/L (3.5-5.2); SODIUM 132 mEq/L (134-144)
[2017-06-03] MEDS ORDERED: ONDANSETRON DISINTEGRATING 4 MG TAB PO PRN (14:27)
[2017-06-03] MEDS ORDERED: ACETAMINOPHEN 325 MG TAB PO PRN (14:27)
[2017-06-03] MEDS ORDERED: ONDANSETRON 4 MG/2 ML VIAL IVP PRN (14:27)
[2017-06-03] MEDS ORDERED: D50W 25 GM/50 ML SYR IVP PRN (14:40)
--- NOTE | 2017-06-03 15:11 | GCON ---
[f rep st] CONSULTATION GENERAL SURGERY CONSULTATION DATE OF CONSULTATION: 06/03/2017 CHIEF COMPLAINT: Diarrhea. HISTORY OF PRESENT ILLNESS: The patient is a 71-year-old man who underwent amputation of his 5th to e and metatarsal on May 25, 2017. He was discharged home on May 26, 2017. He has been on Keflex f or about 8 weeks. He reports that he started developing copious explosive diarrhea and some erythem a around his wound. He discontinued the antibiotics, and I asked him to come in to the ER. In the ER, his white blood cell count is normal, but his C diff is positive. PAST MEDICAL HISTORY: Includes sepsis due to this wound, osteomyelitis, anxiety and depression, car diovascular disease, cervical disk disease, chronic kidney disease, type 2 diabetes, coronary artery disease, diabetes mellitus, gastroesophageal reflux disease, hypertension, hypoxia, obesity, obstru ctive sleep apnea. PAST SURGICAL HISTORY: Includes 4-vessel CABG, amputation 5th toe and metatarsal, cardiac stents, d isk surgery. MEDICATIONS: Reviewed. ALLERGIES: Darvon, trazodone, Vistaril, Ambien. FAMILY HISTORY: Significant for coronary artery disease and hypertension. SOCIAL HISTORY: His recently had a stroke. He is to [place]. He previously smoked 4-5 ci garettes a day for 20 years. He quit alcohol in 2005. REVIEW OF SYSTEMS: Significant for a diarrhea. Otherwise, a 10-point review of systems is negative . PHYSICAL EXAM: VITAL SIGNS: 36.5, 89, 130/78, 16, 93% on room air. GENERAL: Pleasant. Appears n ontoxic. Sitting up in bed. at bedside. HEENT: Normocephalic. No gross hearing deficits. Mucous membranes moist. Pupils equal and round. LUNGS: Clear to auscultation bilaterally. No inc reased work of breathing. CARDIAC: Regular rate. ABDOMEN: Bowel sounds present. Soft, nontender to palpation. EXTREMITIES: He has a wound on the lateral aspect of his right foot. There is abou t 5 cm of erythema extending on the dorsum of his foot. The wound bed has a mixture of old hematoma . No bone is palpable. LABORATORY DATA: Results reviewed: White count 7.44, potassium 5.4, glucose 3.74, creatinine 1.6. C diff positive. IMPRESSION AND PLAN: The patient is a 71-year-old man with a history of sepsis status post amputati on of 5th metatarsal head and 5th toe with open wound. He has a small amount erythema by the wound. He certainly meets criteria for admission due to hyperkalemia, hyperglycemia, and Clostridium diff icile. He should be treated for Clostridium difficile colitis. We can gail the wound to monitor it . He may need to be treated for Clostridium difficile while on antibiotics. I think he would benef it from a wound VAC placed on him on Sunday. Dr. Yuen will see him tomorrow. Thank you. /[id number]/MODL
--- NOTE | 2017-06-03 15:31 | GHP ---
[f rep st] HISTORY AND PHYSICAL DATE OF ADMISSION: 06/03/2017 CHIEF COMPLAINT: Diarrhea and bleeding on his recent toe amputation. HISTORY OF PRESENT ILLNESS: The patient is a 71-year-old with a history significant for type 2 diab etes complicated by neuropathy. He also has a history of heart disease, chronic renal failure, and recent osteomyelitis status post amputation of his toe on May 25. The patient went home for the last several days. He says his right pinky toe has continued to bleed at the wound site. They have been changing Band-Aids fairly frequently and saw Dr. Yuen on June 01. He changed the bandage at that time and told him not to change it until today; however, the bleeding persisted through the ba ndage yesterday so they changed it and noted very slight erythema around the base of the toe. When they talk to Dr. Wilkins on-call today, she recommend they come into the emergency room today for furt her evaluation and treatment. Additionally, he does notice increasing diarrhea starting Sunday night. This is associated with abd ominal cramping and soft BMs. He cannot estimate the number of BMs per day but says it was quite fr equent. He has not had fevers, chills. He has not had chest pain, shortness of breath, nausea, vom iting. He has been urinating normally and drinking and eating okay, although he has had a lower oziel etite since surgery. He does have a history of heart disease. He is followed closely by Dr. Nassar. He has had bypass s urgery in 1995 and subsequent stent placement since then. He is on Plavix and aspirin. He held the aspirin 4 days prior to surgery and resumed it on the day of surgery. REVIEW OF SYSTEMS: A 10-point review of systems was done including constitutional, HEENT, eyes, car diovascular, pulmonary, abdominal, , musculoskeletal, neurologic, and psychiatric. Pertinent posi tives present in the HPI. PAST MEDICAL HISTORY: 1. Type 2 diabetes with neuropathy, difficult to control blood sugars with most of his blood sugars being over 200 recently. 2. Coronary artery disease status post bypass surgery in , status post PCI since then. Followed by Dr. Nassar. 3. Hypertension. 4. Dyslipidemia. 5. Obstructive sleep apnea, on CPAP. 6. Chronic renal failure stage 3. Baseline creatinine around 1.5 to 1.7. 7. Osteomyelitis status post amputation of his 5th pinky toe on the right on May 25. 8. Chronic pain with continuous opioid dependency secondary to peripheral neuropathy, on chronic Ox yContin. 9. Secondary pulmonary hypertension. PAST SURGICAL HISTORY: Includes recent amputation of his 5th toe, 4-vessel CABG in , back surger y. FAMILY HISTORY: Father of a heart attack after surgery when he was 81. Mother fell down the edupristine tairs and had a severe concussion and soon after from complications. SOCIAL HISTORY: He is . He and his live together in their own home. They have no kids . He does not drink and is a former tobacco user. 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 He uses a cane to ambulate. MEDICATIONS: Nasacort, testosterone topically, Lasix 40 mg at night, aspirin, Lyrica 300 twice cami y, Protonix 40 daily, metoprolol 25 daily, Cozaar 50 mg daily, Lantus 50 units daily, Cymbalta 60 mg at night, Plavix 75 daily, OxyContin 80 mg twice daily, Keflex 500 mg 3 times daily, Lipitor 40 mg at night. ALLERGIES: Vistaril, Dalmane, trazodone, Darvon, Ambien. PHYSICAL EXAMINATION: VITAL SIGNS: He is afebrile, heart rate 68, blood pressure 126/79, respirati ons 18, he is 91% on room air. GENERAL: He is an obese 71-year-old, in no obvious distress. He is alert and oriented. HEENT: Atraumatic. Pupils are equal. Extraocular movements intact. He is a nicteric. Mucous membranes are slightly dry. Oropharynx is clear. NECK: Supple without adenopath y. No obvious bruits. HEART: Regular rate and rhythm. No murmur, gallop, or rub. LUNGS: Clear and diminished bilaterally. No wheeze or rhonchi. ABDOMEN: Obese. He has some mild tenderness wi th guarding on the left lower quadrant. No obvious masses. Positive bowel sounds. EXTREMITIES: N o clubbing, cyanosis, or edema. He does have multiple abrasions and scratches on both of his lower extremities, he says from his cats. MUSCULOSKELETAL: No effusions or deformities noted. NEUROLOGI C: His speech is fluent. He is alert. He is moving all 4 extremities. He has a peripheral neurop athy. PSYCHIATRIC: Normal mood, appropriate. LABORATORY DATA: CBC is unremarkable. Chemistry shows a sodium of 132, potassium 5.4, BUN 31, with a creatinine of 1.6. Glucose is elevated at 374. Urinalysis is normal. GI panel is positive for Clostridium difficile and enteropathic Escherichia coli. ASSESSMENT AND PLAN: 71-year-old with recent osteomyelitis status post amputation, presents with in creasing erythema and bleeding from his wound, as well as diarrhea. 1. Diarrhea: Likely etiology is a C difficile colitis given his recent antibiotic use, I do not th ink the E coli is a true pathogen at this time and will treat the C difficile. Vancomycin 125 mg 4 times daily. 2. History of osteomyelitis status post recent amputation with some very minimal erythema and bleed ing from the wound. I suspect the bleeding is from the Plavix and aspirin. He does not appear to h ave an obvious infection at this time; however, Dr. Wilkins from Wound Care will be following along an d will defer wound care to her. In the meantime, will continue his usual Keflex dose. 3. Type 2 diabetes with neuropathy and uncontrolled. Will continue his Lantus, add sliding scale i nsulin, and up titrate his Lantus after I get more data from his blood sugars. 4. Hypertension. Currently controlled. Continue his usual medications. 5. Obstructive sleep apnea. He is on CPAP. He will try to get his to bring in his machine. 6. Coronary artery disease status post CABG and stents. Currently asymptomatic. Continue his usua l medications. 7. Chronic renal failure stage 3. His creatinine appears to be at baseline. Will continue to kulwant tor this while he is in the hospital. 8. Chronic pain with continuous opioid dependence. He will continue his usual dose of OxyContin an d monitor his pain while he is here in the hospital. At this time, I will not provide additional p. r.n. medications. He does not look uncomfortable at this time. 9. Secondary pulmonary hypertension from obesity and obstructive sleep apnea. No further evaluatio n required at this time. 10. Deep venous thrombosis prophylaxis. Patient medium risk. Will start him on SCDs. Hold antico agulation at this time until his wound has achieved good stasis and no further bleeding is noted, th en will resume renal-dosed Lovenox at 30 mg subcu daily. Copy requested to: Dr. Isbell /[id number]/MODL
[2017-06-03] MEDS: CEPHALEXIN 500 MG CAP PO SCH ×2 (16:45→21:07)
[2017-06-03] MEDS: VANCOMYCIN 125 MG/2.5 ML UDL PO SCH ×2 (16:45→21:07)
[2017-06-03] MEDS: INSULIN LISPRO 100 UNIT/ML SC SCH (16:46)
[2017-06-03] MEDS ORDERED: FUROSEMIDE 80 MG TAB PO SCH (21:00)
[2017-06-03] MEDS ORDERED: ATORVASTATIN CALCIUM 40 MG PO SCH (21:00)
[2017-06-03] MEDS ORDERED: PREGABALIN 300 MG PO SCH (21:00)
[2017-06-03] MEDS: FUROSEMIDE 40 MG TAB PO SCH (21:07)
[2017-06-03] MEDS: ASPIRIN 325 MG TAB PO SCH (21:07)
[2017-06-03] MEDS: DULoxetine 30 MG CAP PO SCH (21:07)
[2017-06-03] MEDS: PREGABALIN 150 MG CAP PO SCH (21:07)
[2017-06-04 05:10] LABS: % IMMATURE GRANULYOCYTES 0.2 % (0.0-1.1); ABSOLUTE IMMATURE GRANULOCYTES 0.02 10^3/uL (0.00-0.10); ADD DIFF? NO; ADD MORPH? NO; ADD SCAN? NO; ATYPICAL LYMPHOCYTE FLAG 0 (0-99); FRAGMENT RBC FLAG 0 (0-99); HEMATOCRIT 48.6 % (40.0-51.0); HEMOGLOBIN 15.5 g/dL (13.7-17.5); LEFT SHIFT FLG 0 (0-99); LIPEMIA HEMOLYSIS FLAG 80 (0-99); MEAN CELL HEMOGLOBIN CONCENTR. 31.9 g/dL (32.4-36.7); MEAN CELL VOLUME 84.5 fL (81.5-99.8); MEAN PLATELET VOLUME 10.9 fL (8.7-11.7); PLATELET CLUMPS FLAG 0 (0-99); PLATELET COUNT 199 10^3/uL (150-400); RED BLOOD CELL COUNT 5.75 10^6/uL (4.40-6.38); RED CELL DISTRIBUTION WIDTH 14.9 % (11.5-15.2)
[2017-06-04] MEDS: VANCOMYCIN 125 MG/2.5 ML UDL PO SCH ×4 (05:21→21:05)
[2017-06-04 05:34] LABS: ANION GAP 13 mEq/L (8-16); CALCIUM 9.2 mg/dL (8.5-10.4); CARBON DIOXIDE 25 mEq/l (22-31); CHLORIDE 96 mEq/L (97-110); CREATININE 1.6 mg/dL (0.7-1.3); GLOMERULAR FILTRATION RATE 43; GLUCOSE 276 mg/dL (70-100); SODIUM 134 mEq/L (134-144)
[2017-06-04] MEDS: ATORVASTATIN CALCIUM 40 MG TAB PO SCH (08:11)
[2017-06-04] MEDS: LOSARTAN POTASSIUM 50 MG TAB PO SCH (08:11)
[2017-06-04] MEDS: PREGABALIN 150 MG CAP PO SCH ×2 (08:11→21:14)
[2017-06-04] MEDS: CLOPIDOGREL BISULFATE 75 MG TAB PO SCH (08:11)
[2017-06-04] MEDS: PANTOPRAZOLE SODIUM 40 MG TAB PO SCH (08:11)
[2017-06-04] MEDS: INSULIN LISPRO 100 UNIT/ML SC SCH ×3 (08:12→19:11)
[2017-06-04] MEDS: CEPHALEXIN 500 MG CAP PO SCH ×3 (08:12→21:13)
[2017-06-04] MEDS: FLUTICASONE NASAL 120 SPRAYS/16 GM MDI EACHNARE SCH (08:17)
[2017-06-04] MEDS ORDERED: TRIAMCINOLONE ACET NASAL SCH (09:00)
[2017-06-04] MEDS ORDERED: INSULIN GLARGINE 100 UNITS/ML SYRINGE SC SCH ×2 (09:00→10:30)
[2017-06-04] MEDS: METOPROLOL SUCCINATE XR 25 MG TAB PO SCH (09:53)
[2017-06-04] MEDS ORDERED: INSULIN GLARGINE 100 UNITS/ML SYRINGE SC ONE (10:32)
--- NOTE | 2017-06-04 10:40 | HOSPPROG ---
Hospitalist Progress Note Assessment/Plan: 71-year-old with multiple medical issues is admitted with a wound on his right 5th toe status post amputation. He has a history of poorly controlled diabetes with elevated blood sugars, hyperkalemia likely due to high blood sugars as well as C diff colitis. # history of osteomyelitis 5th toe status post amputation with poor wound healing. Appreciate surgery consult. * Wound Care to discuss with patient regarding wound VAC placement * Ongoing wound care per surgery * Will continue Keflex for now. # poorly controlled diabetes: Patient on Lantus and Januvia. Will increase Lantus by 16 units, he will likely need more than this our goal would be a fasting blood sugar around 120-150. Continue sliding scale insulin with meals. * Increase Lantus * Continue sliding scale insulin * Dietitian consult regarding diet # hyperkalemia, mild will continue to monitor this while he is in the hospital no treatment needed at this time. # C diff colitis likely secondary to antibiotic use recently and hospitalization. * P.o. Vanco times 10 days and then will need suppressive doses if has ongoing antibiotic use # coronary artery disease: Patient without symptoms currently continue his medications as prescribed including Plavix and aspirin # obstructive sleep apnea. Patient typically uses CPAP at night unfortunately he does not have his machine here and desaturated a little bit off oxygen. Will try to get his to bring in his machine. # dyslipidemia on a statin # obesity # chronic renal failure, stage III. Baseline creatinine is 1.6 will continue to monitor while he is here # chronic pain with continuous opioid dependency followed at [facility]. Continue OxyContin # secondary pulmonary hypertension # DVT prophylaxis patient currently on aspirin and Plavix has a nonhealing wound that is bleeding will likely resume low from Abdullahi if he has good hemostasis after his wound VAC placement. Subjective: No complaints today. His diarrhea is much improved. He continues to have some issues with his wound is oozing. He is not sure about the wound VAC but would like it his however has some reservations. Objective: Vital Signs Temp Pulse Resp BP Pulse Ox 36.2 C 75 16 120/78 86 L 06/04/17 07:31 06/04/17 09:53 06/04/17 07:46 06/04/17 09:53 06/04/17 07:46 Laboratory Results 06/04/17 05:00 06/04/17 05:00 06/03/17 06/04/17 06/05/17 05:59 05:59 05:59 Intake Total 900 250 Output Total 250 Balance 650 250 - Physical Exam Constitutional: no apparent distress, chronically ill appearing, obese Eyes: PERRL, anicteric sclera, EOMI Ears, Nose, Mouth, Throat: moist mucous membranes Cardiovascular: regular rate and rhythym, no murmur, rub, or gallop Respiratory: no respiratory distress, no rales or rhonchi, clear to auscultation , reduced air movement Gastrointestinal: normoactive bowel sounds, soft, non-tender abdomen, No ascites , No rebound, No distension Genitourinary: no bladder fullness Skin: warm, normal color Musculoskeletal: no joint effusions Neurologic: AAOx3 Psychiatric: interacting appropriately, not anxious, not encephalopathic ICD10 Worksheet Patient Problems: Problems Problem Status Onset Chronic Disease [facility]/Transitional Care Acute Sepsis Acute Cellulitis Acute Laceration of left ear, external Acute Cellulitis Acute Clostridium difficile diarrhea Acute
--- NOTE | 2017-06-04 10:57 | SOAPPROG ---
SOAP Progress Note Assessment/Plan: Assessment/Plan: 71 Y M s/p 5th toe and metatarsal amputation. admitted with C dif. Responding well to Cdif treatment--no diarrhea this am. Will ask wound care to place wound vac. Would like to start outpatient vac arrangements ANISH. S: I feel fine. No more diarrhea this am. No fevers, no cramps. foot doesn't hurt. peripheral neuropathy. O: gen: alert nad abd : soft, protuberant, nt ext: wound with some black eschar at margins, Some slough at base with some areas of granulation. 06/04/17 10:53 Objective: Vital Signs Temp Pulse Resp BP Pulse Ox 36.2 C 75 16 120/78 86 L 06/04/17 07:31 06/04/17 09:53 06/04/17 07:46 06/04/17 09:53 06/04/17 07:46 Laboratory Results 06/04/17 05:00 06/04/17 05:00 06/03/17 06/04/17 06/05/17 05:59 05:59 05:59 Intake Total 900 250 Output Total 250 Balance 650 250 ICD10 Worksheet Patient Problems: Problems Problem Status Onset Cellulitis Acute Clostridium difficile diarrhea Acute Cellulitis Acute Chronic Disease Mgmt/Transitional Care Acute Laceration of left ear, external Acute Sepsis Acute
--- NOTE | 2017-06-04 14:38 | WOCRNPDOC ---
WOCRN Advanced Assessment Note - Skin Integrity Problem, Advanced Assess Right Fifth Toe Surgical Wound/Incision Dressing Type: Gauze, Tanmay Dressing Description: Shadowed Closure Description: Sutures (proximal to wound bed, intact) Exudate Amount: Minimal Exudate Color: Reddish/Yellow Exudate Characteristic(s): Serosanguinous Integumentary Issue Intervention: Dressing Applied Desirae Wound Tissue: Erythema, Intact Desirae Wound Swelling: Mild Wound Bed Color: Black, Red, Yellow Wound Bed Constitution: Granulation Tissue (10%), Smooth Tissue (40%), Mixed Loose & Adhered Slough/Eschar (50%) Wound Edges: Well Defined Site Odor: None Site Measurement - Head-to-Toe Length X Width X Depth (cm): [id number]. sutured area proximal to wound: 2.5cmx2.8cm Skin Integrity Problem Comment: Wound bed w/ minimal exudate and 50% necrotic tissue, w/ some mixed smooth and granulation tissues along margins. This wound is directly adjacent to a portion of the wound that has since been sutured. In order to protect sutures and prevent tissue surrounding from becoming macerated , wound was draped up to sutures. One piece of black vac foam placed in wound and bridged to dorsal aspect of foot. Sutures [employer]IST, covered w/ gauze and Tanmay. Vac set at 125mmHg, low continuous suction. Wound care will round on patient again of 06/06.
[2017-06-04] MEDS: DULoxetine 30 MG CAP PO SCH (21:13)
[2017-06-04] MEDS: FUROSEMIDE 40 MG TAB PO SCH (21:13)
[2017-06-04] MEDS: ASPIRIN 325 MG TAB PO SCH (21:13)
[2017-06-05] MEDS: VANCOMYCIN 125 MG/2.5 ML UDL PO SCH ×4 (06:12→21:58)
--- NOTE | 2017-06-05 08:18 | SOAPPROG ---
SOAP Progress Note Assessment/Plan: Assessment/Plan: 71 Y M s/p 5th toe and metatarsal amputation. admitted with C dif. No diarrhea. Wound vac in place. Change vac in am an assess wound. Might need debridement at some point. If wound looks good then would want to send patient home with outpatient wound vac and home health care for dressing changes. S: Sleeping, but arousable O: gen: alert nad abd : soft, protuberant, nt ext: vac to suction. 06/05/17 08:17 Objective: Vital Signs Temp Pulse Resp BP Pulse Ox 36.4 C 66 16 110/62 93 06/05/17 08:03 06/05/17 08:03 06/05/17 08:03 06/05/17 08:03 06/05/17 08:03 Laboratory Results 06/04/17 05:00 06/04/17 05:00 06/04/17 06/05/17 06/06/17 05:59 05:59 05:59 Intake Total 900 1100 Output Total 250 Balance 650 1100 ICD10 Worksheet Patient Problems: Problems Problem Status Onset Cellulitis Acute Clostridium difficile diarrhea Acute ~06/03/17 Cellulitis Acute Chronic Disease [facility]/Transitional Care Acute Laceration of left ear, external Acute Sepsis Acute
[2017-06-05] MEDS: INSULIN LISPRO 100 UNIT/ML SC SCH ×5 (08:25→23:17)
[2017-06-05] MEDS: ATORVASTATIN CALCIUM 40 MG TAB PO SCH (08:27)
[2017-06-05] MEDS: LOSARTAN POTASSIUM 50 MG TAB PO SCH (08:27)
[2017-06-05] MEDS: CLOPIDOGREL BISULFATE 75 MG TAB PO SCH (08:28)
[2017-06-05] MEDS: METOPROLOL SUCCINATE XR 25 MG TAB PO SCH (08:28)
[2017-06-05] MEDS: PANTOPRAZOLE SODIUM 40 MG TAB PO SCH (08:28)
[2017-06-05] MEDS: PREGABALIN 150 MG CAP PO SCH ×2 (08:28→21:58)
[2017-06-05] MEDS: CEPHALEXIN 500 MG CAP PO SCH ×3 (08:28→21:59)
[2017-06-05] MEDS: FLUTICASONE NASAL 120 SPRAYS/16 GM MDI EACHNARE SCH (08:33)
[2017-06-05] MEDS ORDERED: INSULIN GLARGINE 100 UNITS/ML SYRINGE SC SCH (09:00)
[2017-06-05] MEDS: INSULIN GLARGINE 100 UNITS/ML SYRINGE SC SCH (09:31)
[2017-06-05] MEDS: TESTOSTERONE 1% 5 GM GEL PKT TD SCH (12:22)
--- NOTE | 2017-06-05 12:39 | HOSPPROG ---
Hospitalist Progress Note Assessment/Plan: 71-year-old with multiple medical issues is admitted with a wound on his right 5th toe status post amputation. He has a history of poorly controlled diabetes with elevated blood sugars, hyperkalemia likely due to high blood sugars as well as C diff colitis. # history of osteomyelitis 5th toe status post amputation with poor wound healing. Appreciate surgery consult. * She had wound VAC placed. * Follow-up in a.m. and surgery will decide if patient needs debridement, otherwise he will go home once home VAC is ordered and ready to go * He will have home care at home. # poorly controlled diabetes: Patient on Lantus at home. Will increase Lantus by 16 units, he will likely need more than this our goal would be a fasting blood sugar around 120-150. Continue sliding scale insulin with meals. * Increase Lantus again today * Continue sliding scale insulin, will increase to extra high dose * Dietitian consult regarding diet # hyperkalemia, mild will continue to monitor this while he is in the hospital no treatment needed at this time. # C diff colitis likely secondary to antibiotic use recently and hospitalization. * P.o. Vanco times 10 days and then will need suppressive doses if has ongoing antibiotic use # coronary artery disease: Patient without symptoms currently continue his medications as prescribed including Plavix and aspirin # obstructive sleep apnea. Patient typically uses CPAP at night unfortunately he does not have his machine here and desaturated a little bit off oxygen. Will try to get his to bring in his machine. # dyslipidemia on a statin # obesity # chronic renal failure, stage III. Baseline creatinine is 1.6 will continue to monitor while he is here # chronic pain with continuous opioid dependency followed at [facility]. Continue OxyContin # secondary pulmonary hypertension # DVT prophylaxis patient currently on aspirin and Plavix has a nonhealing wound that is bleeding will likely resume low from [place] if he has good hemostasis after his wound VAC placement. Disposition: Patient will need 1 more night stay here, surgery will remove hospital wound VAC tomorrow check wound and do a debridement if necessary, otherwise he will get his home wound VAC placed and he will go home tomorrow with wound care. He will need close follow-up with Dr. Yuen as an outpatient Subjective: No new complaints. Still having high sugars despite increasing Lantus. Objective: Vital Signs Temp Pulse Resp BP Pulse Ox 36.4 C 70 16 128/70 H 93 06/05/17 08:03 06/05/17 08:28 06/05/17 08:03 06/05/17 08:28 06/05/17 08:03 Laboratory Results 06/04/17 05:00 06/04/17 05:00 06/04/17 06/05/17 06/06/17 05:59 05:59 05:59 Intake Total 900 1100 Output Total 250 Balance 650 1100 - Physical Exam Constitutional: no apparent distress, obese Cardiovascular: regular rate and rhythym Respiratory: no respiratory distress Skin: other (Wound on right little toe with wound VAC in place) Neurologic: AAOx3 ICD10 Worksheet Patient Problems: Problems Problem Status Onset Chronic Disease Mgmt/Transitional Care Acute Sepsis Acute Cellulitis Acute Laceration of left ear, external Acute Cellulitis Acute Clostridium difficile diarrhea Acute ~06/03/17
[2017-06-05] MEDS: ASPIRIN 325 MG TAB PO SCH (21:59)
[2017-06-05] MEDS: DULoxetine 30 MG CAP PO SCH (21:59)
[2017-06-05] MEDS: FUROSEMIDE 40 MG TAB PO SCH (21:59)
[2017-06-06] MEDS ORDERED: INSULIN LISPRO 100 UNIT/ML SC ONE (01:00)
[2017-06-06] MEDS: VANCOMYCIN 125 MG/2.5 ML UDL PO SCH ×4 (06:03→21:32)
[2017-06-06] MEDS: INSULIN GLARGINE 100 UNITS/ML SYRINGE SC SCH (08:50)
[2017-06-06] MEDS: INSULIN LISPRO 100 UNIT/ML SC SCH ×4 (08:50→21:32)
[2017-06-06] MEDS: PANTOPRAZOLE SODIUM 40 MG TAB PO SCH (08:53)
[2017-06-06] MEDS: PREGABALIN 150 MG CAP PO SCH ×2 (08:53→21:33)
[2017-06-06] MEDS: ATORVASTATIN CALCIUM 40 MG TAB PO SCH (08:53)
[2017-06-06] MEDS: CEPHALEXIN 500 MG CAP PO SCH (08:53)
[2017-06-06] MEDS: CLOPIDOGREL BISULFATE 75 MG TAB PO SCH (08:53)
[2017-06-06] MEDS: LOSARTAN POTASSIUM 50 MG TAB PO SCH (08:58)
[2017-06-06] MEDS: METOPROLOL SUCCINATE XR 25 MG TAB PO SCH (08:58)
--- NOTE | 2017-06-06 11:39 | SOAPPROG ---
SOAP Progress Note Assessment/Plan: Assessment/Plan: 71 Y M s/p 5th toe and metatarsal amputation. admitted with C dif. Wound is overhead cleaner with better granulation after vac. Suture line is "soggy." Will replace vac and create an incisional portion of vac over suture line. D/w' ed wound care. Home vac arrangements being made. Redness over dorsum of foot is brighter today--will d/w ID. Likely home later today with vac and home care if cleared by ID and medicine. C dif treatment per medicine. S: Sleeping, but arousable O: gen: alert nad abd : soft, protuberant, nt ext: see above. 06/06/17 11:35 Objective: Vital Signs Temp Pulse Resp BP Pulse Ox 36.4 C 65 16 109/70 96 06/06/17 09:38 06/06/17 09:38 06/06/17 09:38 06/06/17 09:38 06/06/17 09:38 Laboratory Results 06/04/17 05:00 06/04/17 05:00 06/05/17 06/06/17 06/07/17 05:59 05:59 05:59 Intake Total 1100 1600 Output Total 400 650 Balance 1100 1200 -650 ICD10 Worksheet Patient Problems: Problems Problem Status Onset Cellulitis Acute Clostridium difficile diarrhea Acute ~06/03/17 Cellulitis Acute Chronic Disease Mgmt/Transitional Care Acute Laceration of left ear, external Acute Sepsis Acute
--- NOTE | 2017-06-06 12:34 | WOCRNPDOC ---
WOCRN Advanced Assessment Note - Skin Integrity Problem, Advanced Assess Right Fifth Toe Surgical Wound/Incision Dressing Type: Tanmay Dressing Description: Clean/Dry, Intact Closure Description: Sutures, Not Approximated Exudate Amount: Scant Exudate Characteristic(s): Serosanguinous Integumentary Issue Intervention: Dressing Changed James Wound Tissue: Macerated James Wound Swelling: Moderate Wound Bed Color: Red Wound Bed Constitution: Granulation Tissue (20%), Smooth Tissue (50%), Unstable Eschar (30%) Wound Edges: Not Attached, Thick Skin Integrity Problem Comment: Vac changed. Per discussion with Sussy SKINNER sutures were included in the vac via an incisional dressing made by wound care nurse. Draped james wound and james sutures. Sutures were covered with adaptic touch and then one piece of black foam was applied to wound and over sutures and bridged up to right beltran. very concerned about "state of house " and it being presentable to a home health nurse. Also was worried home health nurse would be "intrusive" and wanted to do vac dressing herself. Wound RN reassured patient that a RN would need to do the vac dressing and that a lay person would not be able to do it. All questions answered and vac working with no leaks at -125 mm Hg continous suction. Next vac change Friday 06/08.
[2017-06-06] MEDS: FLUTICASONE NASAL 120 SPRAYS/16 GM MDI EACHNARE SCH (12:45)
--- NOTE | 2017-06-06 15:13 | HOSPPROG ---
Hospitalist Progress Note Assessment/Plan: 71-year-old with multiple medical issues is admitted with a wound on his right 5th toe status post amputation. He has a history of poorly controlled diabetes with elevated blood sugars, hyperkalemia likely due to high blood sugars as well as C diff colitis. # history of osteomyelitis 5th toe status post amputation with poor wound healing. Appreciate surgery consult. ID Consult today. * She had wound VAC placed. * Abx have been stopped * MRI is pending to determine etiology of redness/roundness of foot/wound. MRI results will determine plan going forward including the possibility of discharge this evening. * At this time, there is no plan for debridement. * He will have home care at home once ready for discharge. # poorly controlled diabetes: Patient on Lantus at home. Will increase Lantus by 16 units, he will likely need more than this our goal would be a fasting blood sugar around 120-150. Continue sliding scale insulin with meals. * Lantus increased yesterday. Will not changed further today. Re-evaluate tomorrow. * Continue sliding scale insulin, will increase to extra high dose * Dietitian consult regarding diet # hyperkalemia, mild will continue to monitor this while he is in the hospital no treatment needed at this time. # C diff colitis likely secondary to antibiotic use recently and hospitalization. * P.o. Vanco times 10 days and then will need suppressive doses if has ongoing antibiotic use * No further diarrhea # coronary artery disease: Patient without symptoms currently continue his medications as prescribed including Plavix and aspirin # obstructive sleep apnea. Patient typically uses CPAP at night unfortunately he does not have his machine here and desaturated a little bit off oxygen. Will try to get his to bring in his machine. # dyslipidemia on a statin # obesity # chronic renal failure, stage III. Baseline creatinine is 1.6 will continue to monitor while he is here # chronic pain with continuous opioid dependency followed at [facility]. Continue OxyContin # secondary pulmonary hypertension # DVT prophylaxis patient currently on aspirin and Plavix has a nonhealing wound that is bleeding will likely resume low from [place] if he has good hemostasis after his wound VAC placement. Disposition: Dispo is pending an MRI which will be ordered today. For now, I will plan on keeping overnight and ordering labs for assessment of Cr/chronic renal failure, potassium, and CBC as well as hyperglycemia and therapeutic response to increased insulin yesterday. Discussed with both ID and surgery. He will need close follow-up with Dr. Yuen as an outpatient Subjective: ID to consult today. MRI to be ordered. ABX have been stopped. NO CP or SOB. There is redness to dorsum of foot. Objective: Vital Signs Temp Pulse Resp BP Pulse Ox 36.4 C 65 16 109/70 96 06/06/17 09:38 06/06/17 09:38 06/06/17 09:38 06/06/17 09:38 06/06/17 09:38 Laboratory Results 06/04/17 05:00 06/04/17 05:00 06/05/17 06/06/17 06/07/17 05:59 05:59 05:59 Intake Total 1100 1600 Output Total 400 650 Balance 1100 1200 -650 - Physical Exam Constitutional: no apparent distress, appears nourished, not in pain Eyes: PERRL, EOMI Ears, Nose, Mouth, Throat: moist mucous membranes, hearing normal Cardiovascular: regular rate and rhythym, no murmur, rub, or gallop, No JVD Respiratory: no respiratory distress, no rales or rhonchi, clear to auscultation Gastrointestinal: normoactive bowel sounds Genitourinary: no bladder fullness Skin: warm, normal color, other (wound vac in place right foot) Neurologic: AAOx3 Psychiatric: interacting appropriately, not anxious, not encephalopathic ICD10 Worksheet Patient Problems: Problems Problem Status Onset Cellulitis Acute Clostridium difficile diarrhea Acute ~06/03/17 Cellulitis Acute Chronic Disease Mgmt/Transitional Care Acute Laceration of left ear, external Acute Sepsis Acute
--- NOTE | 2017-06-06 15:50 | PCMIDPN ---
Assessment/Plan: #Cdiff: continue vancomycin po 125mg PO QID, duration determined by need for antimicrobials for foot #R foot OM R 5th met s/p amp (bone cx MSSA, enterococcus, corynebacterium but margin was negative for OM) with persistent R lateral foot redness. Unclear significance. Poor vascular supply --dc Keflex --MRI R foot --monitor clinically #Renal insufficiency, Cr 1.6, okay to get contrasted MRI #Poorly controlled DM, HgAIC 13 - certainly contributing to poor healing discussed with surgery and hospitalist service Subjective: 71-year-old male history of insulin-dependent diabetes had right 5th metatarsal amputation 05/25/17 secondary to osteomyelitis. Bone cx showed MSSA, enterococcus. Patient presented to [facility] 06[facility] with c/o diarrhea and concern for redness associated with wound RLE. Patient has been on Keflex for 2 months by report. Surgical team feels redness is worse today. Patient has no pain today. Diarrhea resolved. No BM today, formed BM yesterday Objective: Vital Signs Temp Pulse Resp BP Pulse Ox 36.1 C 70 20 138/81 H 93 06/06/17 15:30 06/06/17 15:30 06/06/17 15:30 06/06/17 15:30 06/06/17 15:30 Laboratory Results 06/04/17 05:00 06/04/17 05:00 06/05/17 06/06/17 06/07/17 05:59 05:59 05:59 Intake Total 1100 1600 Output Total 400 650 Balance 1100 1200 -650 - Physical Exam General Appearance: alert, no apparent distress, obese, non-toxic EENT: pale conjunctiva, poor dentition, No scleral icterus Respiratory: lungs clear, No accessory muscle use Neck: supple Cardiac/Chest: regular rate, rhythm Extremities: erythema (round R lateral foot adjacent to wound vac. NT, no fluctuance) Peripheral Pulses: 0: dorsalis-pedis (R), dorsalis-pedis (L) Abdomen: non-tender, soft Male Genitalia: No mcginnis Skin: pallor, No rash Neuro/Psych: alert, normal mood/affect, oriented x 3 - Time Spent With Patient Time Spent with Patient: greater than 35 minutes Time Spent with Patient: Greater than 35 minutes spent on this patients care, greater than 50% of time spent counseling, educating, and coordinating care regarding the above mentioned plan. ICD10 Worksheet Patient Problems: Problems Problem Status Onset Cellulitis Acute Clostridium difficile diarrhea Acute ~06/03/17 Cellulitis Acute Chronic Disease Mgmt/Transitional Care Acute Laceration of left ear, external Acute Sepsis Acute
[2017-06-06] MEDS ORDERED: GADOBUTROL 10 ML VIAL IVP ONE (18:29)
[2017-06-06] MEDS: ASPIRIN 325 MG TAB PO SCH (21:32)
[2017-06-06] MEDS: DULoxetine 30 MG CAP PO SCH (21:32)
[2017-06-06] MEDS: FUROSEMIDE 40 MG TAB PO SCH (21:33)
[2017-06-07 04:43] LABS: % IMMATURE GRANULYOCYTES 0.3 % (0.0-1.1); ABSOLUTE IMMATURE GRANULOCYTES 0.02 10^3/uL (0.00-0.10); ADD DIFF? NO; ADD MORPH? NO; ADD SCAN? NO; ATYPICAL LYMPHOCYTE FLAG 0 (0-99); FRAGMENT RBC FLAG 0 (0-99); HEMATOCRIT 47.2 % (40.0-51.0); HEMOGLOBIN 14.8 g/dL (13.7-17.5); LEFT SHIFT FLG 0 (0-99); LIPEMIA HEMOLYSIS FLAG 80 (0-99); MEAN CELL HEMOGLOBIN 26.8 pg (27.9-34.1); MEAN CELL HEMOGLOBIN CONCENTR. 31.4 g/dL (32.4-36.7); MEAN CELL VOLUME 85.4 fL (81.5-99.8); MEAN PLATELET VOLUME 10.9 fL (8.7-11.7); PLATELET CLUMPS FLAG 10 (0-99); PLATELET COUNT 205 10^3/uL (150-400); RED BLOOD CELL COUNT 5.53 10^6/uL (4.40-6.38); RED CELL DISTRIBUTION WIDTH 14.8 % (11.5-15.2)
[2017-06-07 05:03] LABS: ANION GAP 11 mEq/L (8-16); CALCIUM 8.5 mg/dL (8.5-10.4); CARBON DIOXIDE 27 mEq/l (22-31); CHLORIDE 96 mEq/L (97-110); CREATININE 1.6 mg/dL (0.7-1.3); GLOMERULAR FILTRATION RATE 43; GLUCOSE 306 mg/dL (70-100); POTASSIUM 5.2 mEq/L (3.5-5.2); SODIUM 134 mEq/L (134-144)
[2017-06-07] MEDS: VANCOMYCIN 125 MG/2.5 ML UDL PO SCH ×4 (05:08→21:42)
[2017-06-07] MEDS: PANTOPRAZOLE SODIUM 40 MG TAB PO SCH (08:36)
[2017-06-07] MEDS: PREGABALIN 150 MG CAP PO SCH ×2 (08:37→21:41)
[2017-06-07] MEDS: LOSARTAN POTASSIUM 50 MG TAB PO SCH (08:37)
[2017-06-07] MEDS: CLOPIDOGREL BISULFATE 75 MG TAB PO SCH (08:37)
[2017-06-07] MEDS: ATORVASTATIN CALCIUM 40 MG TAB PO SCH (08:37)
[2017-06-07] MEDS: METOPROLOL SUCCINATE XR 25 MG TAB PO SCH (08:37)
[2017-06-07] MEDS: INSULIN GLARGINE 100 UNITS/ML SYRINGE SC SCH ×2 (08:38→21:43)
[2017-06-07] MEDS: INSULIN LISPRO 100 UNIT/ML SC SCH ×4 (08:38→21:47)
[2017-06-07] MEDS: TESTOSTERONE 1% 5 GM GEL PKT TD SCH (10:40)
--- NOTE | 2017-06-07 11:35 | HOSPPROG ---
Hospitalist Progress Note Assessment/Plan: 71-year-old with multiple medical issues is admitted with a wound on his right 5th toe status post amputation. He has a history of poorly controlled diabetes with elevated blood sugars, hyperkalemia likely due to high blood sugars as well as C diff colitis. MRI Right Foot 06/07: abscess at amputation site with surrounding cellulitis. Probable OM of the diaphysis remaining of fifth metatarsal # Persistent Osteomyletis/Cellulits vs history of osteomyelitis 5th toe status post amputation with poor wound healingAppreciate surgery consult. ID Consult today. * Wound VAC placed. * Cephalexin stopped 06/06. ID to see today to determine abx going forward * Likely debridement tomorrow morning # poorly controlled diabetes: Patient on Lantus at home. * Still with Hyperglycemia. Change Lantus to BID dosing. He still has elevated glucose and has required short acting insulin this morning, should be able to tolerate 35 units bid as he is currently getting 70 once daily. * Cont ISS # hyperkalemia, mild will continue to monitor this while he is in the hospital no treatment needed at this time. # C diff colitis likely secondary to antibiotic use recently and hospitalization. * P.o. Vanco times 10 days and then will need suppressive doses if has ongoing antibiotic use * No further diarrhea # coronary artery disease: Patient without symptoms currently continue his medications as prescribed including Plavix and aspirin # obstructive sleep apnea. Patient typically uses CPAP at night unfortunately he does not have his machine here and desaturated a little bit off oxygen. Will try to get his to bring in his machine. # dyslipidemia on a statin # obesity # chronic renal failure, stage III. Baseline creatinine is 1.6 will continue to monitor while he is here # chronic pain with continuous opioid dependency followed at [facility]. Continue OxyContin # secondary pulmonary hypertension # DVT prophylaxis patient currently on aspirin and Plavix has a nonhealing wound that is bleeding will likely resume low from [place] if he has good hemostasis after his wound VAC placement. Disposition: Will have debridement tomorrow. He will need close follow-up with Dr. Yuen as an outpatient Subjective: MRI c/w abscess and possible OM. Still with hyperglycemia. No CP or SOB Objective: Vital Signs Temp Pulse Resp BP Pulse Ox 36.5 C 64 18 131/80 H 98 06/07/17 08:19 06/07/17 08:19 06/07/17 08:19 06/07/17 08:19 06/07/17 08:19 Laboratory Results 06/07/17 04:27 06/07/17 04:27 06/06/17 06/07/17 06/08/17 05:59 05:59 05:59 Intake Total 1600 1950 Output Total 400 1200 Balance 1200 750 - Physical Exam Constitutional: no apparent distress, appears nourished, not in pain Eyes: PERRL, anicteric sclera, EOMI Ears, Nose, Mouth, Throat: moist mucous membranes, hearing normal, ears appear normal, no oral mucosal ulcers Cardiovascular: regular rate and rhythym, no murmur, rub, or gallop Respiratory: no respiratory distress, no rales or rhonchi, clear to auscultation Gastrointestinal: normoactive bowel sounds, soft, non-tender abdomen, no palpable masses Skin: warm, other (wound vac on right foot. some erythema. ) Neurologic: AAOx3 ICD10 Worksheet Patient Problems: Problems Problem Status Onset Cellulitis Acute Clostridium difficile diarrhea Acute ~06/03/17 Cellulitis Acute Chronic Disease Mgmt/Transitional Care Acute Laceration of left ear, external Acute Sepsis Acute
[2017-06-07] MEDS: FLUTICASONE NASAL 120 SPRAYS/16 GM MDI EACHNARE SCH (11:41)
--- NOTE | 2017-06-07 12:58 | SOAPPROG ---
SOAP Progress Note Assessment/Plan: Assessment: AFEBRILE/ WOUND STABLE BUT MRI SUGGESTS FLUID COLLECTION/ BLOOD FLOW ADEQUATE RISKS AND OPTIONS FULLY DISCUSSED Plan:I&D IN OR IN AM 06/07/17 12:56 Objective: Vital Signs Temp Pulse Resp BP Pulse Ox 36.5 C 64 18 131/80 H 98 06/07/17 08:19 06/07/17 08:19 06/07/17 08:19 06/07/17 08:19 06/07/17 08:19 Laboratory Results 06/07/17 04:27 06/07/17 04:27 06/06/17 06/07/17 06/08/17 05:59 05:59 05:59 Intake Total 1600 1950 Output Total 400 1200 Balance 1200 750 ICD10 Worksheet Patient Problems: Problems Problem Status Onset Cellulitis Acute Clostridium difficile diarrhea Acute ~06/03/17 Cellulitis Acute Chronic Disease Mgmt/Transitional Care Acute Laceration of left ear, external Acute Sepsis Acute
--- NOTE | 2017-06-07 13:01 | SOAPPROG ---
SOAP Progress Note Assessment/Plan: Assessment: 71-year-old male status post 5th toe and metatarsal amputation done recently, readmitted with C diff No pain at all, understands he may have an abscess/fluid collection that needs drainage. Physical exam pleasant male, very comfortable Right lower extremity right foot wound VAC in place, area of erythema over the dorsum of the foot with fluctuance. MRI demonstrates fluid collection concerning for abscess in the right foot Plan: Patient seen examined by Dr. Yuen who also discussed the case with Infectious Disease Patient to operating room for incision VAC change tomorrow (Sunday). Patient has been added to operating room schedule for mid 06/07/17 12:58 Objective: Vital Signs Temp Pulse Resp BP Pulse Ox 36.5 C 64 18 131/80 H 98 06/07/17 08:19 06/07/17 08:19 06/07/17 08:19 06/07/17 08:19 06/07/17 08:19 Laboratory Results 06/07/17 04:27 06/07/17 04:27 06/06/17 06/07/17 06/08/17 05:59 05:59 05:59 Intake Total 1600 1950 Output Total 400 1200 Balance 1200 750 ICD10 Worksheet Patient Problems: Problems Problem Status Onset Cellulitis Acute Clostridium difficile diarrhea Acute ~06/03/17 Cellulitis Acute Chronic Disease Mgmt/Transitional Care Acute Laceration of left ear, external Acute Sepsis Acute
--- NOTE | 2017-06-07 13:37 | PCMIDPN ---
Assessment/Plan: #Cdiff: no diarrhea. --continue vancomycin po 125mg PO QID, duration determined by need for antimicrobials for foot #R foot OM R 5th met s/p amp (bone cx MSSA, enterococcus, corynebacterium but margin was negative for OM) with persistent R lateral foot redness now with MRI showing underlying abscess and possible osteo of residual 5th metatarsal --planned I&D tomorrow with cultures --Discussed the potential need for IV antibiotics if further evidence of osteo -- after debridement will resume antibiotic therapy based on past cultures and adjust based on new cultures #Renal insufficiency, Cr 1.6, stable today #Poorly controlled DM, HgAIC 13 - certainly contributing to poor healing discussed with surgery Subjective: Patient feeling well, denies pain and diarrhea Objective: Vital Signs Temp Pulse Resp BP Pulse Ox 36.5 C 64 18 131/80 H 98 06/07/17 08:19 06/07/17 08:19 06/07/17 08:19 06/07/17 08:19 06/07/17 08:19 Laboratory Results 06/07/17 04:27 06/07/17 04:27 06/06/17 06/07/17 06/08/17 05:59 05:59 05:59 Intake Total 1600 1950 Output Total 400 1200 Balance 1200 750 - Physical Exam General Appearance: alert, no apparent distress Respiratory: No accessory muscle use Extremities: erythema ( lateral right foot erythema in elliptical shape) Neuro/Psych: alert, normal mood/affect, oriented x 3 - Time Spent With Patient Time Spent with Patient: greater than 35 minutes (discussed potential need for prolonged IV therapy, risks and benefits of PICC line and antibiotic therapy) Time Spent with Patient: Greater than 35 minutes spent on this patients care, greater than 50% of time spent counseling, educating, and coordinating care regarding the above mentioned plan. ICD10 Worksheet Patient Problems: Problems Problem Status Onset Cellulitis Acute Clostridium difficile diarrhea Acute ~06/03/17 Cellulitis Acute Chronic Disease Mgmt/Transitional Care Acute Laceration of left ear, external Acute Sepsis Acute
[2017-06-07] MEDS: ASPIRIN 325 MG TAB PO SCH (21:41)
[2017-06-07] MEDS: DULoxetine 30 MG CAP PO SCH (21:41)
[2017-06-07] MEDS: FUROSEMIDE 40 MG TAB PO SCH (21:42)
[2017-06-08] MEDS: VANCOMYCIN 125 MG/2.5 ML UDL PO SCH ×5 (05:00→20:05)
[2017-06-08] MEDS: INSULIN LISPRO 100 UNIT/ML SC SCH ×4 (08:04→20:53)
[2017-06-08] MEDS ORDERED: NS 1,000 ML IV ONE (09:50)
[2017-06-08] MEDS ORDERED: BUPIVACAINE 0.5% 30 ML SDV ONE (09:55)
--- NOTE | 2017-06-08 10:17 | PDANEPAE ---
ANE Past Medical History - Cardiovascular History Hx Hypertension: Yes Hx Arrhythmias: No Hx Chest Pain: No Hx Coronary Artery / Peripheral Vascular Disease: Yes Hx CHF / Valvular Disease: No Cardiovascular History Comment: STENTS X3. GABG X4. PULMONARY HTN - Pulmonary History Hx COPD: No Hx Asthma/Reactive Airway Disease: No Hx Recent Upper Respiratory Infection: No Hx Oxygen in Use at Home: Yes O2 in Use at Home (L/minute): 2 Hx Sleep Apnea: Yes Sleep Apnea Screening Result - Last Documented: Positive Pulmonary History Comment: CONSTANTIN USES C-PAP WILL ONLY BRING MASK. SINUS INFECTION 02/2017. PNEUMONIA 2014 - Neurologic History Hx Cerebrovascular Accident: No Hx Seizures: No Hx Dementia: No - Endocrine History Hx Diabetes: Yes Hypothyroid: No Hyperthyroid: No Obesity: severe Endocrine History Comment: IDDM - Renal History Hx Renal Disorders: Yes Renal History Comment: CHRONIC KIDNEY DISEASE STAGE 3. NOCTURIA - Liver History Hx Hepatic Disorders: No - Neurological & Psychiatric Hx Hx Neurological and Psychiatric Disorders: Yes Neurological / Psychiatric History Comment: ANXIETY AND DEPRESSION - Cancer History Hx Cancer: No - Congenital Disorder History Hx Congenital Disorders: No - GI History Hx Gastrointestinal Disorders: Yes Gastrointestinal History Comment: GERD - Other Health History Other Health History: FOOT INFECTION/ULCER/SEPSIS. RESULT OF STEPPING ON IAN NAIL. PERIPHERAL NEUROPATHY - Chronic Pain History Chronic Pain: Yes (LUMBAR SPINE,RT FOOT) - Surgical History Prior Surgeries: GABG X4 96. LUMBAR LAMINECTOMY. RT FOOTDEBRIDEMENT/SEPSIS 2015 ANE Review of Systems - Exercise capacity Exercise capacity: limited by disability ANE Patient History - Allergies Allergies/Adverse Reactions: hydroxyzine HCl [From Vistaril] Allergy (Intermediate, Verified 05/11/16 02:51) hydroxyzine pamoate [From Vistaril] Allergy (Intermediate, Verified 05/11/16 02: 51) flurazepam HCl [From Dalmane] Allergy (Mild, Verified 05/11/16 02:51) trazodone Allergy (Mild, Verified 05/11/16 02:51) propoxyphene HCl [From Darvon] Allergy (Verified 05/11/16 02:51) zolpidem tartrate [From Ambien] Allergy (Verified 05/11/16 02:51) - Home Medications Home Medications: ATORVASTATIN CALCIUM [Lipitor 80 mg] 40 mg PO HS 06/05/11 [Last Taken 06/02/17] Aspirin [Aspirin 325 mg (*)] 325 mg PO HS 06/05/11 [Last Taken 06/02/17] Clopidogrel Bisulfate [Plavix (*)] 75 mg PO DAILY 06/05/11 [Last Taken 06/03/17] Furosemide [Lasix 80 MG (*)] 40 mg PO HS 06/05/11 [Last Taken 06/03/17] Losartan Potassium [Cozaar 50 mg (*)] 50 mg PO DAILY 06/05/11 [Last Taken ] Pregabalin [LYRICA] 300 mg PO BID 06/05/11 [Last Taken 06/03/17 09:00] Triamcinolone Acet Nasal [Nasacort Aq] 1 sprays NASAL DAILY 06/05/11 [Last Taken 06/03/17] Metoprolol Succinate Xr [Toprol Xl 25 mg (*)] 25 mg PO DAILY 01/03/15 [Last Taken 06/03/17] Pantoprazole Sodium [Protonix 40mg (*)] 40 mg PO DAILY 01/03/15 [Last Taken 08/12] oxyCODONE CR [Oxycontin] 80 mg PO BID 01/03/15 [Last Taken 06/03/17 09:00] DULoxetine [Cymbalta 30 MG (*)] 60 mg PO HS 05/11/16 [Last Taken 06/02/17] Testosterone 5 gm TP Q2D 05/13/16 [Last Taken 06/01/17] Insulin Glargine [Lantus 100 UNITS/ML (*)] 50 units SC DAILY 05/24/17 [Last Taken 06/03/17] Cephalexin [Keflex (*)] 500 mg PO TID 05/25/17 [Last Taken 06/03/17 09:00] - NPO status NPO Since - Liquids (Date): 06/08/17 NPO Since - Liquids (Time): 04:00 NPO Since - Solids (Date): 06/08/17 NPO Since - Solids (Time): 00:00 - Smoking Hx Smoking Status: Former smoker ANE Labs/Vital Signs - Labs Result Diagrams: 06/07/17 04:27 06/07/17 04:27 - Vital Signs Blood Pressure: 132/84 Heart Rate: 63 Respiratory Rate: 12 O2 Sat (%): 97 Height: 172.72 cm Weight: 113.3 kg ANE Physical Exam - Airway Neck exam: decreased ROM Mallampati Score: Class 2 Mouth exam: normal dental/mouth exam - Pulmonary Pulmonary: no respiratory distress - Cardiovascular Cardiovascular: regular rate and rhythym - ASA Status ASA Status: III ANE Anesthesia Plan Anesthesia Plan: GA w LMA
--- NOTE | 2017-06-08 10:19 | SOAPPROG ---
SOAP Progress Note Assessment/Plan: Assessment: AFEBRILE/ WOUND STABLE BUT MRI SUGGESTS FLUID COLLECTION/ BLOOD FLOW ADEQUATE RISKS AND OPTIONS FULLY DISCUSSED Plan:I&D IN OR IN AM 06/07/17 12:56 06/08/17 10:18 AFEBRILE/ MRI SUGGESTS ABSCESS/ PLAN EXPLORATION/ SURGICAL RISKS AND OPTIONS AGAIN FULLY DISCUSSED Objective: Vital Signs Temp Pulse Resp BP Pulse Ox 36.3 C 63 12 132/84 H 97 06/08/17 09:37 06/08/17 10:17 06/08/17 10:17 06/08/17 10:17 06/08/17 10:17 Laboratory Results 06/07/17 04:27 06/07/17 04:27 06/07/17 06/08/17 06/09/17 05:59 05:59 05:59 Intake Total 1950 3500 Output Total 1200 900 Balance 750 2600 ICD10 Worksheet Patient Problems: Problems Problem Status Onset Cellulitis Acute Clostridium difficile diarrhea Acute ~06/03/17 Cellulitis Acute Chronic Disease Mgmt/Transitional Care Acute Laceration of left ear, external Acute Sepsis Acute
[2017-06-08] MEDS ORDERED: MIDAZOLAM 2 MG/2 ML VIAL IVP ONE (10:32)
[2017-06-08] MEDS ORDERED: MIDAZOLAM 2 MG/2 ML VIAL ONE (10:32)
[2017-06-08] MEDS ORDERED: PROPOFOL/EMULSION 500 MG/50 ML BOTTLE IV ONE (10:39)
[2017-06-08] MEDS ORDERED: SUCCINYLCHOLINE CHLORIDE*ANESTHESIA ONLY*200 MG/10 ML SYR IVP ONE (10:40)
[2017-06-08] MEDS ORDERED: fentaNYL 100 MCG/2 ML INJ ONE (10:42)
[2017-06-08] MEDS ORDERED: ONDANSETRON 4 MG/2 ML VIAL ONE (10:59)
[2017-06-08] MEDS ORDERED: ROCURONIUM 100 MG/10 ML VIAL ONE (10:59)
[2017-06-08] MEDS ORDERED: DEXAMETHASONE 4 MG/ML VIAL ONE (10:59)
[2017-06-08] MEDS ORDERED: SUGAMMADEX SODIUM 200 MG/2 ML VIAL IVP ONE (11:41)
[2017-06-08] MEDS ORDERED: NALOXONE HCL 0.4 MG/ML INJ IVP PRN ×2 (11:56→12:17)
[2017-06-08] MEDS: ATORVASTATIN CALCIUM 40 MG TAB PO SCH ×2 (11:59→16:07)
[2017-06-08] MEDS: CLOPIDOGREL BISULFATE 75 MG TAB PO SCH ×2 (12:00→15:05)
[2017-06-08] MEDS: FLUTICASONE NASAL 120 SPRAYS/16 GM MDI EACHNARE SCH (12:00)
[2017-06-08] MEDS ORDERED: LR 500 ML IV PRN (12:17)
[2017-06-08] MEDS ORDERED: LABETALOL HCL 50 MG/10 ML SYR IVP PRN (12:17)
[2017-06-08] MEDS ORDERED: fentaNYL 100 MCG/2 ML INJ IVP PRN (12:17)
[2017-06-08] MEDS ORDERED: PROMETHAZINE HCL 25 MG/ML INJ IVP PRN (12:17)
[2017-06-08] MEDS: INSULIN GLARGINE 100 UNITS/ML SYRINGE SC SCH ×2 (13:48→20:53)
[2017-06-08] MEDS: HYDROmorphONE/DILAUDID 6 MG/30 ML PCA IV PRN (13:59)
[2017-06-08] MEDS: LOSARTAN POTASSIUM 50 MG TAB PO SCH (15:05)
--- NOTE | 2017-06-08 15:29 | HOSPPROG ---
Hospitalist Progress Note Assessment/Plan: 71-year-old with multiple medical issues is admitted with a wound on his right 5th toe status post amputation. He had surgical debridement today and he is seen post operatively. ID is following and per their most recent note, they will restart abx today. He has some bleeding around his surgical site and per nursing surgery is aware. Night time aspirin will be held due to bleeding. Restart all scheduled meds tomorrow. Studies: MRI Right Foot 06/07: abscess at amputation site with surrounding cellulitis. Probable OM of the diaphysis remaining of fifth metatarsal # Persistent Osteomyletis/Cellulits vs history of osteomyelitis 5th toe status post amputation with poor wound healingAppreciate surgery consult. * Wound VAC placed. * Cephalexin stopped 06/06. * Ongoing Abx per ID # poorly controlled diabetes: * Lantus has been changed to BID dosing. Will increase today. Morning dose was held this morning and he will get a reduced Lantus dose this afternoon # hyperkalemia, mild will continue to monitor this while he is in the hospital no treatment needed at this time. # C diff colitis likely secondary to antibiotic use recently and hospitalization. * P.o. Vanco times 10 days and then will need suppressive doses if has ongoing antibiotic use * No further diarrhea # coronary artery disease: Patient without symptoms currently continue his medications as prescribed including Plavix and aspirin # obstructive sleep apnea. Patient typically uses CPAP at night unfortunately he does not have his machine here and desaturated a little bit off oxygen. Will try to get his to bring in his machine. # dyslipidemia on a statin # obesity # chronic renal failure, stage III. Baseline creatinine is 1.6 will continue to monitor while he is here # chronic pain with continuous opioid dependency followed at [facility]. Continue OxyContin # secondary pulmonary hypertension # DVT prophylaxis patient currently on aspirin and Plavix has a nonhealing wound that is bleeding will likely resume low from Abdullahi if he has good hemostasis after his wound VAC placement. Disposition: Keep inpatient. He will need close follow-up with Dr. Yuen as an outpatient Subjective: Had foot debridement today. Would bleeding, surgery is aware. Has generalized pain. Denies CP or SOB. Objective: Vital Signs Temp Pulse Resp BP Pulse Ox 36.8 C 72 18 121/65 H 94 06/08/17 14:50 06/08/17 14:50 06/08/17 14:50 06/08/17 14:50 06/08/17 14:50 Laboratory Results 06/07/17 04:27 06/07/17 04:27 06/07/17 06/08/17 06/09/17 05:59 05:59 05:59 Intake Total 1950 3500 1000 Output Total 1200 900 85 Balance 750 2600 915 - Physical Exam Constitutional: no apparent distress, appears nourished, not in pain Eyes: PERRL, EOMI Ears, Nose, Mouth, Throat: moist mucous membranes, hearing normal Cardiovascular: regular rate and rhythym, no murmur, rub, or gallop, No JVD Respiratory: no respiratory distress, no rales or rhonchi, clear to auscultation Gastrointestinal: soft, non-tender abdomen Skin: warm, other (right foot dressing in place, blood strike through present) Neurologic: AAOx3 Psychiatric: interacting appropriately, not anxious, not encephalopathic ICD10 Worksheet Patient Problems: Problems Problem Status Onset Cellulitis Acute Clostridium difficile diarrhea Acute ~06/03/17 Cellulitis Acute Chronic Disease Mgmt/Transitional Care Acute Laceration of left ear, external Acute Sepsis Acute
[2017-06-08] MEDS ORDERED: INSULIN GLARGINE 100 UNITS/ML SYRINGE SC ONE (15:30)
--- NOTE | 2017-06-08 15:57 | POSTOPPROG ---
Post Op Note Date of Operation: 06/08/17 Surgeon: Otto Yuen Anesthesiologist: Jennifer Anesthesia: GET(General Endotracheal) Pre-op Diagnosis: Osteo right foot Post-op Diagnosis: Same Indication: Possible abscess Procedure: Wound exploration and debridement with the amputation of 5th metatarsal hea Findings: No significant abscess or further ostomy Inf/Abcess present in the surg proc area at time of surgery?: Yes Depth: Deep Incisional (Fascial) EBL: Minimal Complications: None Drains: Wound Vac Specimen(s): 5th metatarsal
[2017-06-08] MEDS: PREGABALIN 150 MG CAP PO SCH ×2 (16:03→20:04)
[2017-06-08] MEDS: METOPROLOL SUCCINATE XR 25 MG TAB PO SCH (16:07)
[2017-06-08] MEDS: PANTOPRAZOLE SODIUM 40 MG TAB PO SCH (16:13)
--- NOTE | 2017-06-08 18:52 | PCMIDPN ---
Assessment/Plan: Assessment/Plan: * Right foot osteomyelitis affecting 5th metatarsal status post amputation and repeat exploration today: Operative findings reviewed with Dr. Yuen - no abscess noted and bone felt to be healthy; 5th metatarsal head was debrided. Await cultures from OR. Will begin vancomycin adjusted for renal insufficiency based on prior cultures and favor this approach as will limit pressure for C difficile colitis. * C difficile colitis: No active diarrhea. Continue oral vancomycin. 06/08/17 18:35 06/08/17 18:56 Subjective: Patient status post foot debridement. Operative findings reviewed with Dr. Yuen. No diarrhea. Objective: Vital Signs Temp Pulse Resp BP Pulse Ox 36.9 C 70 18 111/61 95 06/08/17 16:03 06/08/17 16:07 06/08/17 16:03 06/08/17 16:07 06/08/17 16:03 Microbiology 06/08/17 11:34 Gram Stain - Final Foot - Bone Laboratory Results 06/07/17 04:27 06/07/17 04:27 06/07/17 06/08/17 06/09/17 05:59 05:59 05:59 Intake Total 1950 3500 2500 Output Total 1200 900 505 Balance 750 2600 1994 Oral vancomycin Foot cultures pending - Physical Exam General Appearance: alert, no apparent distress EENT: pharynx normal, No scleral icterus Cardiac/Chest: regular rate, rhythm Extremities: inflammation (foot with wound VAC in place postoperatively with some oozing present) Abdomen: non-tender, No distended ICD10 Worksheet Patient Problems: Problems Problem Status Onset Cellulitis Acute Clostridium difficile diarrhea Acute ~06/03/17 Cellulitis Acute Chronic Disease Mgmt/Transitional Care Acute Laceration of left ear, external Acute Sepsis Acute
[2017-06-08] MEDS ORDERED: VANCOMYCIN 1.5 GM in D5W 250 ML IV SCH (20:00)
[2017-06-08] MEDS: DULoxetine 30 MG CAP PO SCH (20:04)
[2017-06-08] MEDS: FUROSEMIDE 40 MG TAB PO SCH (20:07)
[2017-06-08 20:21] LABS: ANION GAP 9 mEq/L (8-16); CALCIUM 8.5 mg/dL (8.5-10.4); CARBON DIOXIDE 24 mEq/l (22-31); CHLORIDE 100 mEq/L (97-110); CREATININE 1.3 mg/dL (0.7-1.3); GLOMERULAR FILTRATION RATE 55; GLUCOSE 392 mg/dL (70-100); POTASSIUM 6.1 mEq/L (3.5-5.2); SODIUM 133 mEq/L (134-144)
[2017-06-08] MEDS: oxyCODONE IR 5 MG TAB PO PRN (23:09)
[2017-06-09] MEDS: HYDROmorphONE/DILAUDID 6 MG/30 ML PCA IV PRN (03:23)
[2017-06-09] MEDS: oxyCODONE IR 5 MG TAB PO PRN ×3 (04:04→14:49)
[2017-06-09 04:48] LABS: % IMMATURE GRANULYOCYTES 0.4 % (0.0-1.1); ABSOLUTE IMMATURE GRANULOCYTES 0.05 10^3/uL (0.00-0.10); ADD DIFF? NO; ADD MORPH? NO; ADD SCAN? NO; ATYPICAL LYMPHOCYTE FLAG 0 (0-99); FRAGMENT RBC FLAG 0 (0-99); HEMATOCRIT 44.5 % (40.0-51.0); HEMOGLOBIN 13.8 g/dL (13.7-17.5); LEFT SHIFT FLG 0 (0-99); LIPEMIA HEMOLYSIS FLAG 80 (0-99); MEAN CELL HEMOGLOBIN 26.7 pg (27.9-34.1); MEAN CELL VOLUME 86.2 fL (81.5-99.8); MEAN PLATELET VOLUME 11.2 fL (8.7-11.7); PLATELET CLUMPS FLAG 0 (0-99); PLATELET COUNT 195 10^3/uL (150-400); RED BLOOD CELL COUNT 5.16 10^6/uL (4.40-6.38); RED CELL DISTRIBUTION WIDTH 14.4 % (11.5-15.2)
[2017-06-09 05:24] LABS: ANION GAP 11 mEq/L (8-16); CALCIUM 8.5 mg/dL (8.5-10.4); CARBON DIOXIDE 25 mEq/l (22-31); CHLORIDE 96 mEq/L (97-110); CREATININE 1.4 mg/dL (0.7-1.3); GLOMERULAR FILTRATION RATE 50; GLUCOSE 311 mg/dL (70-100); POTASSIUM 5.3 mEq/L (3.5-5.2); SODIUM 132 mEq/L (134-144)
--- NOTE | 2017-06-09 05:57 | GOP ---
[f rep st] OPERATIVE REPORT PATIENT NAME: ZE FRANKLIN DATE OF : DATE OF OPERATION: 06/08/2017 SURGEON: Otto Yuen MD PREOPERATIVE DIAGNOSIS: Possible osteomyelitis and abscess of the right foot. POSTOPERATIVE DIAGNOSIS: Possible osteomyelitis and abscess of the right foot. PROCEDURE PERFORMED: Wound exploration with partial 5th metatarsal amputation. FINDINGS: We found no significant abscess pocket. The remaining bone did not appear to have osteomyelitis and the patient did have adequate blood flow. DESCRIPTION OF PROCEDURE: The patient was taken to the operating room where he received satisfactory general endotracheal anesthesia by Dr. Rodriguez. He was placed in supine position, prepped and draped in the usual sterile fashion. His previous wound incision was opened and sutures were removed. The area was explored. There was no evidence of abscess pocket or significant drainage of any purulence. He did have some minor superficial necrotic material tissue which was resected. The proximal segment of his 5th metatarsal was divided with a power saw and removed, but still did not show much evidence of osteomyelitis. The wound was irrigated profusely. Two Prolene stitches were placed to cover the bone end with the skin portion and the wound VAC was then applied to the open portion of the wound. He tolerated the procedure quite well. Hemostasis was obtained with electrocautery. Blood loss was minimal. There were no complications. He was taken to recovery room in good condition. /[id number]/MODL MTDD
[2017-06-09] MEDS: INSULIN LISPRO 100 UNIT/ML SC SCH ×5 (08:56→20:59)
[2017-06-09] MEDS: CLOPIDOGREL BISULFATE 75 MG TAB PO SCH (09:58)
[2017-06-09] MEDS: LOSARTAN POTASSIUM 50 MG TAB PO SCH (09:59)
[2017-06-09] MEDS: ATORVASTATIN CALCIUM 40 MG TAB PO SCH (09:59)
[2017-06-09] MEDS: INSULIN GLARGINE 100 UNITS/ML SYRINGE SC SCH ×2 (10:00→21:01)
[2017-06-09] MEDS: FLUTICASONE NASAL 120 SPRAYS/16 GM MDI EACHNARE SCH (10:03)
[2017-06-09] MEDS: PREGABALIN 150 MG CAP PO SCH ×2 (10:04→20:59)
[2017-06-09] MEDS: METOPROLOL SUCCINATE XR 25 MG TAB PO SCH (10:04)
[2017-06-09] MEDS: PANTOPRAZOLE SODIUM 40 MG TAB PO SCH (10:04)
--- NOTE | 2017-06-09 10:34 | SOAPPROG ---
SOAP Progress Note Assessment/Plan: Assessment/Plan: 71 Y M s/p 5th toe and metatarsal amputation. admitted with C dif. s/p debridement and amputation of the 5th metatarsal head. No major infection/abscess seen at surgery per Dr. Yuen' notes. Vac in place. Plan to change on Sunday. D/w'ed ID. Patient on IV Vanc now. If wound looks good on Sunday, may be able to d/c IV Vanc. Would still need PO vanc for C dif as well as outpatient vac (already arranged) and home health care. May weight bear on heel. S: Some pain in foot, but largely controlled. O: gen: alert nad abd : soft, protuberant, nt ext: vac in place. 06/09/17 10:27 Objective: Vital Signs Temp Pulse Resp BP Pulse Ox 36.9 C 67 17 108/59 L 95 06/09/17 08:00 06/09/17 10:04 06/09/17 08:00 06/09/17 10:04 06/09/17 08:00 Microbiology 06/08/17 11:34 Gram Stain - Final Foot - Bone Laboratory Results 06/09/17 04:28 06/09/17 04:28 06/08/17 06/09/17 06/10/17 05:59 05:59 05:59 Intake Total 3500 2900 Output Total 900 1905 Balance 2600 995 ICD10 Worksheet Patient Problems: Problems Problem Status Onset Cellulitis Acute Clostridium difficile diarrhea Acute ~06/03/17 Cellulitis Acute Chronic Disease [facility]/Transitional Care Acute Laceration of left ear, external Acute Sepsis Acute
[2017-06-09] MEDS: TESTOSTERONE 1% 5 GM GEL PKT TD SCH (12:03)
[2017-06-09] MEDS: VANCOMYCIN 125 MG/2.5 ML UDL PO SCH ×3 (12:03→20:59)
--- NOTE | 2017-06-09 13:42 | PCMIDPN ---
Assessment/Plan: Assessment/Plan: * Right foot osteomyelitis affecting 5th metatarsal status post amputation and repeat exploration today: Erythema over dorsum of foot that is visible appears more hyperemic than cellulitic. Based on operative findings not showing active abscess or osteomyelitis, will discontinue IV vancomycin while cultures are pending and reassess off antibiotics as would like to limit risk of nephrotoxicity. * C difficile colitis: No active diarrhea. Continue oral vancomycin. Pathophysiology and role of antibiotics reviewed. 06/09/17 13:39 Subjective: Patient without diarrhea. Overall feels well. Objective: Vital Signs Temp Pulse Resp BP Pulse Ox 36.7 C 59 L 16 90/33 L 93 06/09/17 12:46 06/09/17 12:46 06/09/17 12:46 06/09/17 12:46 06/09/17 12:46 Microbiology 06/08/17 11:34 Gram Stain - Final Foot - Bone Laboratory Results 06/09/17 04:28 06/09/17 04:28 06/08/17 06/09/17 06/10/17 05:59 05:59 05:59 Intake Total 3500 2900 Output Total 900 1905 Balance 2600 995 p.o. vancomycin # 6 IV vancomycin # 1 Foot cultures with mixed cutaneous silm - Physical Exam General Appearance: alert, no apparent distress EENT: pharynx normal, No thrush Extremities: inflammation (Right foot with wound VAC in place; small area of erythema over dorsal aspect, nontender to palpation) Abdomen: non-tender, No distended ICD10 Worksheet Patient Problems: Problems Problem Status Onset Cellulitis Acute Clostridium difficile diarrhea Acute ~06/03/17 Cellulitis Acute Chronic Disease Mgmt/Transitional Care Acute Laceration of left ear, external Acute Sepsis Acute
--- NOTE | 2017-06-09 16:04 | HOSPPROG ---
Hospitalist Progress Note Assessment/Plan: DIAGNOSES: -acute C difficile colitis; enter a pathogenic E coli also noted on stool sample = his symptoms are responding well to oral vancomycin so far -ongoing foot wound status post toe and metatarsal resection = no abscess and no osteomyelitis noted at the time surgery = Enterococcus noted in wound cultures; I reviewed this with Dr. Padilla, it is felt that this is not significant in the setting of his wound looking so good into be treated at this time off of antibiotic with wound VAC , and careful observation -chronic kidney disease stage III -diabetes mellitus, remains poorly controlled which will impede wound healing immune function -history of sleep apnea, obesity, heart disease I reviewed today with Sussy Parra and with Dr. Narayan PLANS: -IV vancomycin discontinued, follow renal function closely -plan on wound VAC change in 2 days and less fever or other issues arise suggesting sooner -plan on likely discharge after wound VAC change if he is doing well -continue full 10 days of oral vancomycin -further increase in insulin doses at this time SUBJECTIVE: No foot pain No chills or sweats No shortness of breath or respiratory symptoms No nausea or abdominal symptoms, the diarrhea resolving OBJECTIVE Vitals reviewed: Stable without fever Exam: alert oriented skin warm dry color ok resps not labored lungs clear BSs heart regular abd soft nondistended nontender, bowel sounds present limbs warm, foot is wrapped in dressing with wound VAC in place, bloody discharge in small amount from wound VAC No sign of purulent material iv site ok Laboratory data: Creatinine stable Blood sugars remain high and upper 200 low 300s Objective: Vital Signs Temp Pulse Resp BP Pulse Ox 36.7 C 59 L 16 90/33 L 93 06/09/17 12:46 06/09/17 12:46 06/09/17 12:46 06/09/17 12:46 06/09/17 12:46 Microbiology 06/08/17 11:34 Gram Stain - Final Foot - Bone Laboratory Results 06/09/17 04:28 06/09/17 04:28 06/08/17 06/09/17 06/10/17 06:59 06:59 06:59 Intake Total 3500 2900 Output Total 900 1905 Balance 2600 995 - Time Spent With Patient Time Spent with Patient: greater than 35 minutes Time Spent with Patient: Greater than 35 minutes spent on this patients care, greater than 50% of time spent counseling, educating, and coordinating care regarding the above mentioned plan. ICD10 Worksheet Patient Problems: Problems Problem Status Onset Cellulitis Acute Clostridium difficile diarrhea Acute ~06/03/17 Cellulitis Acute Chronic Disease Mgmt/Transitional Care Acute Laceration of left ear, external Acute Sepsis Acute
[2017-06-09] MEDS: FUROSEMIDE 40 MG TAB PO SCH (20:58)
[2017-06-09] MEDS: DULoxetine 30 MG CAP PO SCH (20:58)
[2017-06-09] MEDS: ASPIRIN 325 MG TAB PO SCH (20:59)
[2017-06-09] MEDS ORDERED: VANCOMYCIN 1.5 GM in D5W 250 ML IV SCH (21:00)
[2017-06-10] MEDS: VANCOMYCIN 125 MG/2.5 ML UDL PO SCH ×4 (05:30→20:43)
--- NOTE | 2017-06-10 08:09 | SOAPPROG ---
SOAP Progress Note Assessment/Plan: Assessment/Plan: 71 Y M s/p 5th toe and metatarsal amputation. admitted with C dif. s/p debridement and amputation of the 5th metatarsal head. Appreciate IM and ID input and care. Vac problems with leaks and clotted line overnight. Vac removed. Wound redressed by myself this am. Cleaned out some clot from under suture line. No active bleeding. He has better granulation since having the vac. Would like to try and replace it. Erythema over dorsum of foot is still present, as it has been for over a month, but it is improved today. I still think he can go home tomorrow with wound vac, home health care, and PO Vanc for cdif if medically cleared. Ordered Metp-B for am (Cr 1.4, CKD). Also, we discussed early f/u with PCP re: DM management. S: Anxious overnight bc of wound vac problems. O: gen: alert nad pulm: no wob abd : soft, protuberant, nt ext: see above. able to tap bone when cleaning out clot from under suture line. 06/10/17 08:09 Objective: Vital Signs Temp Pulse Resp BP Pulse Ox 36.2 C 63 20 99/58 L 94 06/10/17 04:00 06/10/17 04:00 06/10/17 04:00 06/10/17 04:00 06/10/17 04:00 Microbiology 06/08/17 11:34 Gram Stain - Final Foot - Bone Laboratory Results 06/09/17 04:28 06/09/17 04:28 06/09/17 06/10/17 06/11/17 05:59 05:59 05:59 Intake Total 2900 4500 Output Total 1905 600 Balance 995 3900 ICD10 Worksheet Patient Problems: Problems Problem Status Onset Cellulitis Acute Clostridium difficile diarrhea Acute ~06/03/17 Cellulitis Acute Chronic Disease Mgmt/Transitional Care Acute Laceration of left ear, external Acute Sepsis Acute
[2017-06-10] MEDS: PANTOPRAZOLE SODIUM 40 MG TAB PO SCH (09:33)
[2017-06-10] MEDS: ATORVASTATIN CALCIUM 40 MG TAB PO SCH (09:33)
[2017-06-10] MEDS: PREGABALIN 150 MG CAP PO SCH ×2 (09:33→20:43)
[2017-06-10] MEDS: CLOPIDOGREL BISULFATE 75 MG TAB PO SCH (09:33)
[2017-06-10] MEDS: INSULIN LISPRO 100 UNIT/ML SC SCH ×7 (09:34→20:48)
[2017-06-10] MEDS: LOSARTAN POTASSIUM 50 MG TAB PO SCH (09:38)
[2017-06-10] MEDS: METOPROLOL SUCCINATE XR 25 MG TAB PO SCH (09:39)
[2017-06-10] MEDS: FLUTICASONE NASAL 120 SPRAYS/16 GM MDI EACHNARE SCH (09:40)
[2017-06-10] MEDS: INSULIN GLARGINE 100 UNITS/ML SYRINGE SC SCH ×2 (09:53→22:10)
[2017-06-10] MEDS ORDERED: NS 500 ML IV ONE (15:54)
--- NOTE | 2017-06-10 15:59 | HOSPPROG ---
Hospitalist Progress Note Assessment/Plan: DIAGNOSES: -acute C difficile colitis; enteropathogenic E coli also noted on stool sample = his symptoms are responding well to oral vancomycin so far -ongoing foot wound status post toe and metatarsal resection = no abscess and no osteomyelitis noted at the time surgery = Enterococcus noted in wound cultures; I reviewed this with Dr. Padilla, it is felt that this is not significant in the setting of his wound looking so good into be treated at this time off of antibiotic with wound VAC , and careful observation =wound reviewed today by surgery team and appeared satisfactory; vac device clotted so removed with plans to replace in am -hypotension today: suspect a volume issue, ? role of hyperglycemia in that; concern for renal fxn -chronic kidney disease stage III has been at / near baseline -diabetes mellitus, hyperglycemia better today but still not in desired range -history of sleep apnea, obesity, heart disease both stable at present PLANS: -will give fluid bolus now and recheck BP -follow renal function closely -further increase in insulin doses at this time -plan on wound VAC change tomorrow if renal fxn stable -plan on likely discharge tomorrow -continue full 10 days of oral vancomycin for C diff SUBJECTIVE: No foot pain No chills or sweats No shortness of breath or respiratory symptoms No nausea or abdominal symptoms, the diarrhea resolving OBJECTIVE Vitals reviewed: Stable without fever Exam: alert oriented skin warm dry color ok resps not labored lungs clear BSs heart regular abd soft nondistended nontender, bowel sounds present limbs warm, foot is wrapped in dressing with wound VAC in place, bloody discharge in small amount from wound VAC No sign of purulent material iv site ok Laboratory data: Blood sugars remain high but now mostly 190-210s Objective: Vital Signs Temp Pulse Resp BP Pulse Ox 36.3 C 59 L 18 98/51 L 97 06/10/17 11:50 06/10/17 11:50 06/10/17 11:50 06/10/17 11:50 06/10/17 11:50 Microbiology 06/08/17 11:34 Gram Stain - Final Foot - Bone Laboratory Results 06/09/17 04:28 06/09/17 04:28 06/09/17 06/10/17 06/11/17 06:59 06:59 06:59 Intake Total 2900 4500 Output Total 1905 600 Balance 995 3900 - Time Spent With Patient Time Spent with Patient: greater than 35 minutes Time Spent with Patient: Greater than 35 minutes spent on this patients care, greater than 50% of time spent counseling, educating, and coordinating care regarding the above mentioned plan. ICD10 Worksheet Patient Problems: Problems Problem Status Onset Cellulitis Acute Clostridium difficile diarrhea Acute ~06/03/17 Cellulitis Acute Chronic Disease Mgmt/Transitional Care Acute Laceration of left ear, external Acute Sepsis Acute
--- NOTE | 2017-06-10 16:57 | PCMIDPN ---
Assessment/Plan: Assessment/Plan: * Right foot osteomyelitis affecting 5th metatarsal status post amputation and repeat exploration: Foot examined with wound VAC off. Faint pink discoloration over dorsal aspect adjacent to wound without warmth or tenderness. Wound bed itself packed with blood on gauze. Operative cultures with growth of enterococcus faecalis although this may represent wound colonization given no active findings of infection present intraoperatively. Will continue to observe off antibiotic therapy with ongoing local wound care. * C difficile colitis: Continue oral vancomycin times 14 days. 06/10/17 16:53 Subjective: Patient complains of perineal tenderness related to C difficile. No further diarrhea but does have loose stool once per day. Objective: Vital Signs Temp Pulse Resp BP Pulse Ox 36.5 C 61 16 112/61 98 06/10/17 16:47 06/10/17 16:47 06/10/17 16:47 06/10/17 16:47 06/10/17 16:47 Microbiology 06/08/17 11:34 Gram Stain - Final Foot - Bone Laboratory Results 06/09/17 04:28 06/09/17 04:28 06/09/17 06/10/17 06/11/17 05:59 05:59 05:59 Intake Total 2900 4500 Output Total 1905 600 Balance 995 3900 Oral vancomycin # 7 Foot cultures with growth of Enterococcus faecalis - Physical Exam General Appearance: alert, no apparent distress EENT: No scleral icterus Extremities: inflammation (Right foot with packing in wound bed which is blood soaks; minimal discoloration along inferior margin of wound bed; faint pink discoloration to skin over dorsal surface of foot adjacent to wound without warmth or tenderness) Abdomen: non-tender, No distended ICD10 Worksheet Patient Problems: Problems Problem Status Onset Cellulitis Acute Clostridium difficile diarrhea Acute ~06/03/17 Cellulitis Acute Chronic Disease Mgmt/Transitional Care Acute Laceration of left ear, external Acute Sepsis Acute
[2017-06-10] MEDS: DULoxetine 30 MG CAP PO SCH (20:44)
[2017-06-10] MEDS: FUROSEMIDE 40 MG TAB PO SCH (20:44)
[2017-06-10] MEDS: ASPIRIN 325 MG TAB PO SCH (20:44)
[2017-06-11 04:11] VITALS: RESP 18
[2017-06-11 04:58] LABS: ANION GAP 9 mEq/L (8-16); CALCIUM 8.4 mg/dL (8.5-10.4); CARBON DIOXIDE 28 mEq/l (22-31); CHLORIDE 98 mEq/L (97-110); CREATININE 1.4 mg/dL (0.7-1.3); GLOMERULAR FILTRATION RATE 50; GLUCOSE 322 mg/dL (70-100); POTASSIUM 4.3 mEq/L (3.5-5.2); SODIUM 135 mEq/L (134-144)
[2017-06-11] MEDS: VANCOMYCIN 125 MG/2.5 ML UDL PO SCH ×2 (07:00→13:35)
[2017-06-11] MEDS: INSULIN LISPRO 100 UNIT/ML SC SCH ×5 (07:56→13:25)
[2017-06-11 08:48] VITALS: TEMP 98.2
--- NOTE | 2017-06-11 08:50 | WOCRNPDOC ---
WOCRN Advanced Assessment Note - Skin Integrity Problem, Advanced Assess Right Fifth Toe Surgical Wound/Incision Dressing Type: Anuj Bandage, Gauze, Kerlix Dressing Description: Clean/Dry, Intact Exudate Amount: Scant Exudate Characteristic(s): Serosanguinous Integumentary Issue Intervention: Dressing Changed Desirae Wound Tissue: Erythema Desirae Wound Swelling: Severe Wound Bed Color: Brown, Red Wound Bed Constitution: Granulation Tissue (20%), Smooth Tissue (70%), Undermining (12 oclock 2.3 cm extending to 2 oclock), Bone (palpable in undermining/tunnel at 12 oclock.) Wound Edges: Attached, Not Attached, Thick Site Measurement - Head-to-Toe Length X Width X Depth (cm): 5.4x3.x2.3 Skin Integrity Problem Comment: Wet to dry removed. Flushed with ns and gauze. Skin prep applied desirae wound. One small piece of white foam placed in pocket at 12 oclock. Drape applied desirae wound and desirae incision. Incision was covered with adaptic touch after an incisional dressing was created. The remainder of the wound was filled with a small simplace black foam which was bridged up to mid beltran. A bridge dressing would make the dressing change much faster next time if home health has this at their disposal. Vac working with no leaks at - 125 mm Hg continous suction. Change MWF. Education with pateint and about keeping vac on at all times, battery charging, calling [employer] 800# with concerns and that the dressing needs to come down if vac doesnt work for 2/[address] RN Lary in room for care. She will teach patient how to reinforce with drape. Sussy SKINNER visualized wound as well.
[2017-06-11] MEDS: INSULIN GLARGINE 100 UNITS/ML SYRINGE SC SCH (09:30)
--- NOTE | 2017-06-11 09:35 | PDIAF ---
- Diagnosis Diagnosis: Diabetic foot wound, Uncontrolled Diabetes, C diff colitis, chronic kidney Code Status: Full Code - Medication Management Discharge Medications: Medications to Continue on Transfer ATORVASTATIN CALCIUM [Lipitor 80 mg] 40 mg PO HS 06/05/11 [Last Taken 06/02/17] Aspirin [Aspirin 325 mg (*)] 325 mg PO HS 06/05/11 [Last Taken 06/02/17] Clopidogrel Bisulfate [Plavix (*)] 75 mg PO DAILY 06/05/11 [Last Taken 06/03/17] Furosemide [Lasix 80 MG (*)] 40 mg PO HS 06/05/11 [Last Taken 06/03/17] Losartan Potassium [Cozaar 50 mg (*)] 50 mg PO DAILY 06/05/11 [Last Taken ] Pregabalin [LYRICA] 300 mg PO BID 06/05/11 [Last Taken 06/03/17 09:00] Triamcinolone Acet Nasal [Nasacort Aq] 1 sprays NASAL DAILY 06/05/11 [Last Taken 06/03/17] Metoprolol Succinate Xr [Toprol Xl 25 mg (*)] 25 mg PO DAILY 01/03/15 [Last Taken 06/03/17] Pantoprazole Sodium [Protonix 40mg (*)] 40 mg PO DAILY 01/03/15 [Last Taken 08/12] DULoxetine [Cymbalta 30 MG (*)] 60 mg PO HS 05/11/16 [Last Taken 06/02/17] Testosterone 5 gm TP Q2D 05/13/16 [Last Taken 06/01/17] Insulin Glargine [Lantus 100 UNITS/ML (*)] 40 units SC BID #0 ml 06/11/17 [Last Taken Unknown] Insulin Lispro [humALOG LISPRO 100 units/ml (*)] 4 unit SC TIDMEAL #1 btl [Last Taken Unknown] Vancomycin [Vancocin Oral Liquid] 125 mg PO QID #24 dose 06/11/17 [Last Taken Unknown] oxyCODONE CR [Oxycontin] 80 mg PO BID tab 06/11/17 [Last Taken Unknown] Discharge Medications: Refer to the Discharge Home Medication list for PRN reason. - Orders Services needed: Home [facility] Face to Face: I certify that this patient was under my care and that I had the required [id number] encounter meeting the encounter requirements on the discharge day. My findings support the fact that the patient is homebound as defined in CMS Chapter 7 Medicare Benefits Manual 30.1.1, The condition of the patient is such that there exists a normal inability to leave home and consequently, leaving home would require a considerable and taxing effort. Diet Recommendation: ADA 1800 consistent carb Diet Texture: Regular Texture Diet Activity/Weight Bearing Restrictions: ok to bear weight on the heal of his R foot Equipment: wound vacc to foot - Follow Up Care Current Providers and Referrals: Kristina Isbell MD [Primary Care Provider] - As per Instructions Otto Yuen MD [Medical Doctor] - Wilfrid Padilla MD [Medical Doctor] -
--- NOTE | 2017-06-11 09:35 | PDDCSUM ---
Discharge Summary Discharge Summary: DISCHARGE DIAGNOSES: -acute C difficile colitis; enteropathogenic E coli also noted on stool sample -ongoing foot wound status post prior toe and metatarsal resection -hypotension today: suspect a volume issue, ? role of hyperglycemia in that; concern for renal fxn -chronic kidney disease stage III has been at / near baseline -diabetes mellitus, uncontrolled hyperglycemia -history of sleep apnea, obesity, heart disease both stable at present CONSULTANTS: Dr. Otto Yuen general surgeon Dr. Claire Arce infectious disease PROCEDURES: Surgical exploration of foot wound with previous amputation of to the foot 5th toe and metatarsal; surgical findings no abscess or osteomyelitis but wound with poor healing progress HOSPITAL COURSE SUMMARY: This patient with longstanding poorly-controlled diabetes, vascular disease and renal disease, along with peripheral neuropathy, had recently undergone resection of the 5th toe and metatarsal and was having difficulty with wound healing. There is some swelling and erythema of the foot but no fever. Was brought into the hospital and treated with wound care here. He did go to the OR with surgical exploration of the wound but there is no evidence of abscess, soft tissue necrosis, osteomyelitis, or other concerning changes. Thereafter he was treated with wound VAC and did make some progress here. There was an Enterococcus growing from his wound culture but given the state of the wound and lack of fevers it was felt this was unlikely an actual pathogenic organism at this time and is not being treated for this with antibiotics. Here in the hospital he had very poor sugar control despite a doubling of his total daily insulin use compared to his home dose. His sugars were mostly in the mid 200s but as high as 320 and there were no low sugars. He was fairly noncompliant with diet here in the hospital. I did review this with the patient and his in with Dr. Cruz she now his primary care physician. It sounds like he has had quite a significant ongoing issue with dietary compliance at home chronically. I reviewed with the patient and his the reason he is here with a foot infection and kidney disease is because of his uncontrolled diabetes essentially. We talked about the importance of dietary control to help his blood sugar control reviewed what his goals for blood sugar should be. Talked with Dr. Mtz about potentially adding another medication or coming up with another approach to her sugar and she is currently looking into an insulin pump as 1 possibility. Patient did have some diarrhea while he was here was found to have C difficile colitis as well as having an anterior pathogenic E coli in his stool. He was treated with oral vancomycin for this and the symptoms have entirely resolved. He will complete 14 days total of therapy. PENDING TEST RESULTS: None MEDICATION CHANGES: His Lantus insulin doses been increased from 50 daily to 40 twice daily 4 units of short-acting insulin with meals is added Oral vancomycin solution 4 times a day through June 17 for his C diff FOLLOW-UP PLAN: With Dr. Padilla at the [facility] With Dr. Yuen in surgery Clinic With Dr. Mtz in primary care clinic He has home care set up for wound VAC management Greater than 35 minutes bedside and care coordination time today
[2017-06-11] MEDS: PANTOPRAZOLE SODIUM 40 MG TAB PO SCH (09:45)
[2017-06-11] MEDS: ATORVASTATIN CALCIUM 40 MG TAB PO SCH (09:45)
[2017-06-11] MEDS: CLOPIDOGREL BISULFATE 75 MG TAB PO SCH (09:45)
[2017-06-11] MEDS: PREGABALIN 150 MG CAP PO SCH (09:46)
[2017-06-11] MEDS: METOPROLOL SUCCINATE XR 25 MG TAB PO SCH (09:48)
[2017-06-11] MEDS: LOSARTAN POTASSIUM 50 MG TAB PO SCH (09:48)
[2017-06-11] MEDS: FLUTICASONE NASAL 120 SPRAYS/16 GM MDI EACHNARE SCH (09:49)
--- NOTE | 2017-06-11 10:10 | PDIAF ---
- Diagnosis Diagnosis: Diabetic foot wound, Uncontrolled Diabetes, C diff colitis, chronic kidney Code Status: Full Code - Medication Management Discharge Medications: Medications to Continue on Transfer ATORVASTATIN CALCIUM [Lipitor 80 mg] 40 mg PO HS 06/05/11 [Last Taken 06/02/17] Aspirin [Aspirin 325 mg (*)] 325 mg PO HS 06/05/11 [Last Taken 06/02/17] Clopidogrel Bisulfate [Plavix (*)] 75 mg PO DAILY 06/05/11 [Last Taken 06/03/17] Furosemide [Lasix 80 MG (*)] 40 mg PO HS 06/05/11 [Last Taken 06/03/17] Losartan Potassium [Cozaar 50 mg (*)] 50 mg PO DAILY 06/05/11 [Last Taken ] Pregabalin [LYRICA] 300 mg PO BID 06/05/11 [Last Taken 06/03/17 09:00] Triamcinolone Acet Nasal [Nasacort Aq] 1 sprays NASAL DAILY 06/05/11 [Last Taken 06/03/17] Metoprolol Succinate Xr [Toprol Xl 25 mg (*)] 25 mg PO DAILY 01/03/15 [Last Taken 06/03/17] Pantoprazole Sodium [Protonix 40mg (*)] 40 mg PO DAILY 01/03/15 [Last Taken 08/12] DULoxetine [Cymbalta 30 MG (*)] 60 mg PO HS 05/11/16 [Last Taken 06/02/17] Testosterone 5 gm TP Q2D 05/13/16 [Last Taken 06/01/17] Insulin Glargine [Lantus 100 UNITS/ML (*)] 40 units SC BID #0 ml 06/11/17 [Last Taken Unknown] Insulin Lispro [humALOG LISPRO 100 units/ml (*)] 4 unit SC TIDMEAL #1 btl [Last Taken Unknown] Vancomycin [Vancocin Oral Liquid] 125 mg PO QID #24 dose 06/11/17 [Last Taken Unknown] oxyCODONE CR [Oxycontin] 80 mg PO BID tab 06/11/17 [Last Taken Unknown] Discharge Medications: Refer to the Discharge Home Medication list for PRN reason. - Orders Services needed: Home Residential Care Face to Face: I certify that this patient was under my care and that I had the required [id number] encounter meeting the encounter requirements on the discharge day. My findings support the fact that the patient is homebound as defined in CMS Chapter 7 Medicare Benefits Manual 30.1.1, The condition of the patient is such that there exists a normal inability to leave home and consequently, leaving home would require a considerable and taxing effort. Diet Recommendation: ADA 1800 consistent carb Diet Texture: Regular Texture Diet Wound Care Instructions: Exudate Amount: Scant. Exudate Characteristic(s): Serosanguinous. Integumentary Issue Intervention: Dressing Changed. Desirae Wound Tissue: Erythema. Desirae Wound Swelling: Severe. Wound Bed Color: Brown, Red. Wound Bed Constitution: Granulation Tissue (20%), Smooth Tissue (70%), Undermining (12 oclock 2.3 cm extending to 2 oclock), Bone (palpable in undermining/tunnel at 12 oclock.). Wound Edges: Attached, Not Attached, Thick. Site Measurement - Head-to-Toe Length X Width X Depth (cm): 5.4x3.x2.3. Skin Integrity Problem Comment: Wet to dry removed. Flushed with ns and gauze. Skin prep applied desirae wound. One small piece of white foam placed in pocket at 12 oclock. Drape applied desirae wound and desirae incision. Incision was covered with adaptic touch after an incisional dressing was created. The remainder of the wound was filled with a small simplace black foam which was bridged up to mid beltran. A bridge dressing would make the dressing change much faster next time if home health has this at their disposal. Vac working with no leaks at -125 mm Hg continous suction. Change MWF. Education with pateint and about keeping vac on at all times, battery charging[facility] and that the dressing needs to come down if vac doesnt work for 2/24 hours. RN Lary in room for care. She will teach patient how to reinforce with drape. Sussy SKINNER visualized wound as well. Activity/Weight Bearing Restrictions: ok to bear weight on the heal of his R foot Equipment: wound vacc to foot - Follow Up Care Current Providers and Referrals: Otto Yuen MD [Medical Doctor] - (next week) Wilfrid Padilla MD [Medical Doctor] - Kristina Isbell MD [Primary Care Provider] - As per Instructions
[2017-06-11 11:45] VITALS: BP 120/79; PULSE 82; O2SAT 93
[2017-06-11] MEDS: TESTOSTERONE 1% 5 GM GEL PKT TD SCH (13:35)
== END 2017-06-11 16:30 | disposition home health service (06) | DRG 982 ==
LOC: F1N 15:27
PROVIDERS: ADMIT Internal Medicine; ATTEND Internal Medicine
PROC: 0Y6M0ZF Detachment at Right Foot, Partial 5th Ray, Open Approach (ICD-10-PCS; principal; 2017-06-08 09:45)
DX: A04.7 Enterocolitis due to Clostridium difficile (principal); F11.20 Opioid dependence, uncomplicated; E11.69 Type 2 diabetes mellitus with other specified complication; M86.171 Other acute osteomyelitis, right ankle and foot; E11.65 Type 2 diabetes mellitus with hyperglycemia; E87.6 Hypokalemia; B96.20 Unspecified Escherichia coli [E. coli] as the cause of diseases classified elsewhere; I12.9 Hypertensive chronic kidney disease with stage 1 through stage 4 chronic kidney disease, or unspecified chronic kidney disease; N18.3 Chronic kidney disease, stage 3 (moderate); G47.33 Obstructive sleep apnea (adult) (pediatric); E66.9 Obesity, unspecified; I51.9 Heart disease, unspecified; E11.40 Type 2 diabetes mellitus with diabetic neuropathy, unspecified; G89.29 Other chronic pain; I27.2 Other secondary pulmonary hypertension; Z89.421 Acquired absence of other right toe(s); Z91.11 Patient's noncompliance with dietary regimen; Z95.1 Presence of aortocoronary bypass graft; Z87.891 Personal history of nicotine dependence; Z79.4 Long term (current) use of insulin
CPT/HCPCS: 97110-GP; 97116-GP; 97161-GP; 97166-GO; 97530-GP; A9585; G8978-GP-CJ; G8979-GP-CI; G8980-GP-CI; G8987-GO-CI; G8988-GO-CI; J0330; J1100; J1170; J1815; J2250; J2405; J2704; J3010; J3370

== ENCOUNTER → 2017-06-25 | Day surgery (SDC) | payer OTHER, MEDICARE | END | disposition home or self-care (01) | LOC: FIMAGING 12:11 | PROVIDERS: ATTEND Internal Medicine Infectious Disease | PROC: 02HV33Z Insertion of Infusion Device into Superior Vena Cava, Percutaneous Approach (ICD-10-PCS; principal; 2017-06-25) | DX: M86.171 Other acute osteomyelitis, right ankle and foot (principal) | CPT/HCPCS: 36569; 77001; C1751 ==

== ENCOUNTER 2017-07-06 10:01 | Inpatient (IN) | payer OTHER, MEDICARE ==
[~2017-07-06 10:01] MED LIST: VANCOMYCIN 1.5 GM in D5W 250 ML IV ONE
[2017-07-06] MEDS ORDERED: LR 1,000 ML IV ONE (11:01)
--- NOTE | 2017-07-06 12:13 | PDANEPAE ---
ANE Past Medical History - Cardiovascular History Hx Hypertension: Yes Hx Arrhythmias: No Hx Chest Pain: No Hx Coronary Artery / Peripheral Vascular Disease: Yes Hx CHF / Valvular Disease: No Cardiovascular History Comment: STENTS X3. CABG X4. PULMONARY HTN - Pulmonary History Hx COPD: No Hx Asthma/Reactive Airway Disease: No Hx Recent Upper Respiratory Infection: No Hx Oxygen in Use at Home: Yes O2 in Use at Home (L/minute): O2 2L NOC & DAILY NEEDED Hx Sleep Apnea: Yes Sleep Apnea Screening Result - Last Documented: Positive Pulmonary History Comment: CONSTANTIN USES C-PAP WILL ONLY BRING MASK. SINUS INFECTION 02/2017. PNEUMONIA 2014 - Neurologic History Hx Cerebrovascular Accident: No Hx Seizures: No Hx Dementia: No - Endocrine History Hx Diabetes: Yes Endocrine History Comment: IDDM - Renal History Hx Renal Disorders: Yes Renal History Comment: CHRONIC KIDNEY DISEASE STAGE 3. NOCTURIA - Liver History Hx Hepatic Disorders: No - Neurological & Psychiatric Hx Hx Neurological and Psychiatric Disorders: Yes Neurological / Psychiatric History Comment: ANXIETY AND DEPRESSION - Cancer History Hx Cancer: No - Congenital Disorder History Hx Congenital Disorders: No - GI History Hx Gastrointestinal Disorders: Yes Gastrointestinal History Comment: GERD - Other Health History Other Health History: FOOT INFECTION/ULCER/SEPSIS. RESULT OF STEPPING ON IAN NAIL. PERIPHERAL NEUROPATHY - Chronic Pain History Chronic Pain: Yes (LUMBAR SPINE,RT FOOT) - Surgical History Prior Surgeries: GABG X4 96. LUMBAR LAMINECTOMY. RT FOOTDEBRIDEMENT/SEPSIS 2015 ANE Review of Systems Review of systems is: negative - Exercise capacity METS (RN): 3 METS ANE Patient History - Allergies Allergies/Adverse Reactions: hydroxyzine HCl [From Vistaril] Allergy (Intermediate, Verified 05/11/16 02:51) hydroxyzine pamoate [From Vistaril] Allergy (Intermediate, Verified 05/11/16 02: 51) flurazepam HCl [From Dalmane] Allergy (Mild, Verified 05/11/16 02:51) trazodone Allergy (Mild, Verified 05/11/16 02:51) propoxyphene HCl [From Darvon] Allergy (Verified 05/11/16 02:51) zolpidem tartrate [From Ambien] Allergy (Verified 05/11/16 02:51) - Home Medications Home medications: home medication list seen and reviewed Home Medications: ATORVASTATIN CALCIUM [Lipitor 80 mg] 40 mg PO HS 06/05/11 [Last Taken 07/05/17] Aspirin [Aspirin 325 mg (*)] 325 mg PO HS 06/05/11 [Last Taken 07/05/17] Clopidogrel Bisulfate [Plavix (*)] 75 mg PO DAILY 06/05/11 [Last Taken 07/05/17] Furosemide [Lasix 80 MG (*)] 40 mg PO DAILY 06/05/11 [Last Taken 07/05/17] Losartan Potassium [Cozaar 50 mg (*)] 50 mg PO DAILY 06/05/11 [Last Taken ] Pregabalin [LYRICA] 300 mg PO BID 06/05/11 [Last Taken 07/05/17] Triamcinolone Acet Nasal [Nasacort Aq] 1 sprays NASAL DAILY 06/05/11 [Last Taken 07/05/17] Metoprolol Succinate Xr [Toprol Xl 25 mg (*)] 25 mg PO DAILY 01/03/15 [Last Taken 07/05/17] Pantoprazole Sodium [Protonix 40mg (*)] 40 mg PO DAILY 01/03/15 [Last Taken 09/11] DULoxetine [Cymbalta 30 MG (*)] 60 mg PO HS 05/11/16 [Last Taken 07/05/17] Testosterone 5 gm TP Q2D 05/13/16 [Last Taken 07/05/17] Vancomycin 125 mg PO BID 07/04/17 [Last Taken 07/05/17] - NPO status NPO Status: no food or drink >8 hours NPO Since - Liquids (Date): 07/05/17 NPO Since - Liquids (Time): 23:55 NPO Since - Solids (Date): 07/05/17 NPO Since - Solids (Time): 23:55 - Anes Hx Anes Hx: no prior problems - Smoking Hx Smoking Status: Former smoker ANE Labs/Vital Signs - Vital Signs Blood Pressure: 141/76 Heart Rate: 88 Respiratory Rate: 18 O2 Sat (%): 95 Height: 172.72 cm Weight: 108.862 kg ANE Physical Exam - Airway Mallampati Score: Class 3 Mouth exam: normal dental/mouth exam - Pulmonary Pulmonary: no respiratory distress, clear to auscultation - Cardiovascular Cardiovascular: regular rate and rhythym - ASA Status ASA Status: III
[2017-07-06] MEDS ORDERED: MIDAZOLAM 2 MG/2 ML VIAL IVP ONE (12:25)
[2017-07-06] MEDS ORDERED: MINERAL OIL 10 ML VIAL ONE ×2 (12:29→12:53)
[2017-07-06] MEDS ORDERED: THROMBIN (BOVINE) 20,000 UNIT SPRAY TP ONE (12:29)
[2017-07-06] MEDS ORDERED: BUPIVACAINE 0.5% 30 ML SDV ONE (12:29)
[2017-07-06] MEDS ORDERED: BUPIVACAINE/EPI 0.5% 30 ML SDV ONE (12:53)
[2017-07-06] MEDS ORDERED: MIDAZOLAM 2 MG/2 ML VIAL ONE (13:02)
[2017-07-06] MEDS ORDERED: PROPOFOL 200 MG/20 ML VIAL ONE ×2 (13:40→13:45)
[2017-07-06] MEDS ORDERED: fentaNYL 100 MCG/2 ML INJ ONE (13:40)
[2017-07-06] MEDS ORDERED: PROMETHAZINE HCL 25 MG/ML INJ IVP PRN (15:03)
[2017-07-06] MEDS ORDERED: fentaNYL 100 MCG/2 ML INJ IVP PRN (15:03)
[2017-07-06] MEDS ORDERED: HYDROmorphONE/DILAUDID 1 MG/ML SYR IVP PRN (15:03)
[2017-07-06] MEDS ORDERED: ONDANSETRON 4 MG/2 ML VIAL IVP PRN (15:03)
[2017-07-06] MEDS ORDERED: NALOXONE HCL 0.4 MG/ML INJ IVP PRN (15:03)
--- NOTE | 2017-07-06 15:05 | POSTANESTH ---
Post Anesthetic Evaluation Cardiovascular Status: Normal, Stable Respiratory Status: Normal, Stable Level of Consciousness/Mental Status: Can Participate in Eval Pain Control: Adequate, Prn Tx Ordered Nausea/Vomiting Control: Adequate, Prn Tx Ordered Complications Possibly Related to Anesthesia: None Noted (BS 199)
--- NOTE | 2017-07-06 15:24 | POSTOPPROG ---
Post Op Note Date of Operation: 07/06/17 Surgeon: Otto Yuen Anesthesiologist: WARM Anesthesia: GET(General Endotracheal) Pre-op Diagnosis: OPEN RIGHT FOOT WOUND Post-op Diagnosis: SAME Indication: OPEN WOUND Procedure: WOUND DEBRIDEMENT AND SPLIT-THICKNESS SKIN GRAFT RIGHT FOOT Findings: REASONABLY GOOD GRANULATION TISSUE Inf/Abcess present in the surg proc area at time of surgery?: No Depth: Deep Incisional (Fascial) EBL: Minimal Complications: 0 Drains: Wound Vac Specimen(s): NONE
--- NOTE | 2017-07-06 20:33 | SOAPPROG ---
SOAP Progress Note Assessment/Plan: Assessment: DESPITE BEING ON PLAVIX HIS WOUND IS DOING WELL A IN NO PARTICULAR PROBLEMS TONIGHT Plan: CONTINUE WOUND VAC FOR 7 DAYS / NONWEIGHTBEARING ON HIS RIGHT FOOT FOR THAT TIME 07/06/17 20:32 Objective: Vital Signs Temp Pulse Resp BP Pulse Ox 36.6 C 70 16 106/67 96 07/06/17 20:00 07/06/17 20:00 07/06/17 20:00 07/06/17 20:00 07/06/17 20:00 07/05/17 07/06/17 07/07/17 05:59 05:59 05:59 Intake Total 550 Output Total 600 Balance -50 ICD10 Worksheet Patient Problems: Problems Problem Status Onset Cellulitis Acute Cellulitis Acute Chronic Disease Mgmt/Transitional Care Acute Clostridium difficile diarrhea Acute ~06/03/17 Laceration of left ear, external Acute Sepsis Acute
[2017-07-06] MEDS ORDERED: NON-FORMULARY NEW DRUG (Vancomycin 125 MG) PO SCH (21:00)
[2017-07-06] MEDS ORDERED: ATORVASTATIN CALCIUM 40 MG PO SCH (21:00)
[2017-07-06] MEDS ORDERED: PREGABALIN 300 MG PO SCH (21:00)
[2017-07-06] MEDS: VANCOMYCIN 125 MG/2.5 ML UDL PO SCH (21:16)
[2017-07-06] MEDS: ATORVASTATIN CALCIUM 40 MG TAB PO SCH (21:16)
[2017-07-06] MEDS: PREGABALIN 150 MG CAP PO SCH (21:16)
[2017-07-06] MEDS: INSULIN GLARGINE 100 UNITS/ML SYRINGE SC SCH (21:16)
[2017-07-06] MEDS: ASPIRIN 325 MG TAB PO SCH (21:17)
[2017-07-06] MEDS: DULoxetine 30 MG CAP PO SCH (21:17)
[2017-07-07] MEDS: OXYCODONE/APAP 5/325 TAB PO PRN (06:06)
[2017-07-07] MEDS ORDERED: HYDROmorphONE/DILAUDID 6 MG/30 ML PCA IV PRN (07:03)
[2017-07-07] MEDS ORDERED: NALOXONE HCL 0.4 MG/ML INJ IVP PRN (07:03)
[2017-07-07] MEDS: HYDROmorphONE/DILAUDID 1 MG/ML SYR IVP PRN ×2 (07:10→11:37)
[2017-07-07] MEDS: LOSARTAN POTASSIUM 50 MG TAB PO SCH (07:38)
[2017-07-07] MEDS: ASCORBIC ACID 500 MG TAB PO SCH (07:38)
[2017-07-07] MEDS: PREGABALIN 150 MG CAP PO SCH ×2 (07:38→20:04)
[2017-07-07] MEDS: FUROSEMIDE 40 MG TAB PO SCH (07:38)
[2017-07-07] MEDS: METOPROLOL SUCCINATE XR 25 MG TAB PO SCH (07:39)
[2017-07-07] MEDS: VANCOMYCIN 125 MG/2.5 ML UDL PO SCH ×2 (07:39→20:04)
[2017-07-07] MEDS: CLOPIDOGREL BISULFATE 75 MG TAB PO SCH (07:39)
[2017-07-07] MEDS: INSULIN LISPRO 100 UNIT/ML SC SCH ×3 (07:41→18:00)
[2017-07-07] MEDS: INSULIN GLARGINE 100 UNITS/ML SYRINGE SC SCH ×2 (07:42→20:04)
[2017-07-07] MEDS: PANTOPRAZOLE SODIUM 40 MG TAB PO SCH (07:48)
[2017-07-07] MEDS: VANCOMYCIN 1.5 GM in D5W 250 ML IV SCH (10:03)
[2017-07-07] MEDS: TRIAMCINOLONE ACET NASAL SCH (10:04)
--- NOTE | 2017-07-07 16:29 | SOAPPROG ---
SOAP Progress Note Assessment/Plan: Assessment: S/P Skin graft Osteomylitis 5th toe toe Wound Vac to foot NWB RLE Poorly controlled diabetes CAD CKD HLD HTN I am continuing his home medications but his glucose is still out of control. I will ask the hospitalists to assist with managing his medical problems My plan is for him to be in the hospital at least through Sunday S: Feeling well Plan: 07/07/17 16:28 07/07/17 16:29 Objective: Vital Signs Temp Pulse Resp BP Pulse Ox 36.2 C 68 20 123/76 H 96 07/07/17 15:28 07/07/17 15:28 07/07/17 15:28 07/07/17 15:28 07/07/17 15:28 07/06/17 07/07/17 07/08/17 05:59 05:59 05:59 Intake Total 950 300 Output Total 1100 500 Balance -150 -200 Physical Exam - Physical Exam General Appearance: WD/WN, alert, no apparent distress EENT: PERRL/EOMI, No scleral icterus (R), No scleral icterus (L), No hearing deficit Respiratory: lungs clear, normal breath sounds Cardiac/Chest: regular rate, rhythm Skin: other (wound vac to suction) ICD10 Worksheet Patient Problems: Problems Problem Status Onset Cellulitis Acute Cellulitis Acute Chronic Disease Mgmt/Transitional Care Acute Clostridium difficile diarrhea Acute ~06/03/17 Laceration of left ear, external Acute Sepsis Acute
[2017-07-07] MEDS: TESTOSTERONE 1% 5 GM GEL PKT TD SCH (20:04)
[2017-07-07] MEDS: DULoxetine 30 MG CAP PO SCH (20:04)
[2017-07-07] MEDS: ATORVASTATIN CALCIUM 40 MG TAB PO SCH (20:05)
[2017-07-07] MEDS: ASPIRIN 325 MG TAB PO SCH (20:05)
--- NOTE | 2017-07-07 21:35 | GCON ---
[f rep st] CONSULTATION INTERNAL MEDICINE CONSULTATION DATE OF CONSULTATION: 07/07/2017 REASON FOR CONSULTATION: Medical management of diabetes as well as other medical problems. HISTORY OF PRESENT ILLNESS: This is a 72-year-old male, who had been admitted for a skin graft plac ement by Dr. Yuen, that was done yesterday. He will be watched for the next few days in the hospit al. He has a history of type 2 diabetes as well as peripheral vascular disease and coronary artery disease. He was admitted to the hospital a couple weeks ago with right foot osteomyelitis affecting the 5th metatarsal. This is status post amputation and he had repeat exploration at that time. Wo und cultures at that time grew out enterococcus. He also had C difficile colitis during that time. The patient had problems with blood sugar control last hospitalization. It was noted that it was pr obably due to some dietary indiscretion. He currently has elevated blood sugars as well. He does a dmit to dietary indiscretion and inability to help himself. He eats blueberry muffins as well as a l ot of other sugary items. He says that he will try to do better. He is on insulin, high doses of L antus, as well as a little bit of insulin with meals currently. REVIEW OF SYSTEMS: A 10-point Review of Systems was obtained and was negative. PAST MEDICAL HISTORY: 1. 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 2. History of coronary artery disease, status post bypass surgery in 1995. 3. Chronic kidney disease with baseline creatinine 1.5 to 1.7. 4. Obstructive sleep apnea. 5. Dyslipidemia. 6. Hypertension. 7. Osteomyelitis with amputation of his 5th toe recently. 8. Chronic pain and opioid dependency. 9. Secondary pulmonary hypertension. FAMILY HISTORY: Father of a heart attack. Mother of a fall. SOCIAL HISTORY: He is . No alcohol. PHYSICAL EXAMINATION: VITAL SIGNS: Afebrile, blood pressure is 133/76, heart rate 68, oxygen satur ation 96% on room air. GENERAL: The patient is well developed, no apparent distress. HEENT: Lisa cteric sclerae. Extraocular movements intact. Moist mucous membranes. NECK: Supple. No thyromeg michelle. LUNGS: Good effort. Clear to auscultation bilaterally. CARDIOVASCULAR: Regular rate and rh ythm. No murmurs, gallops. ABDOMEN: Positive bowel sounds. Soft, nontender, nondistended. No he patosplenomegaly. EXTREMITIES: No clubbing, cyanosis. There is a right foot wound VAC in place. Right upper leg, there is somewhat bloody dressing from skin graft site. LABS: Blood sugars are between 180 and over 300. Other labs have been drawn. ASSESSMENT: This is a 72-year-old male with history of uncontrolled diabetes, being admitted for sk in graft. 1. Uncontrolled diabetes. Will continue patient's Lantus even though his morning blood sugars are over 200. He is on fairly high doses and so I would rather not push those doses higher. I think we would increase his mealtime insulin to see if he might get some better postprandial control. It wo uld be helpful if he improved his diet a little bit, and patient is aware of that and will try a lit tle bit harder. 2. History of coronary artery disease. This is quiescent and patient is continuing his aspirin and Plavix. 3. Hypertension. 4. Recent foot toe amputation with wound graft. Patient is currently not on antibiotics. 5. History of Clostridium difficile. The patient is not having any diarrhea currently. Thank you for this consultation. Will follow with you. /[id number]/MODL
[2017-07-08] MEDS: HYDROmorphONE/DILAUDID 1 MG/ML SYR IVP PRN (05:06)
[2017-07-08 05:24] LABS: % IMMATURE GRANULYOCYTES 0.2 % (0.0-1.1); ABSOLUTE IMMATURE GRANULOCYTES 0.02 10^3/uL (0.00-0.10); ADD DIFF? NO; ADD MORPH? NO; ADD SCAN? NO; ATYPICAL LYMPHOCYTE FLAG 0 (0-99); FRAGMENT RBC FLAG 0 (0-99); HEMATOCRIT 45.4 % (40.0-51.0); HEMOGLOBIN 13.9 g/dL (13.7-17.5); LEFT SHIFT FLG 0 (0-99); LIPEMIA HEMOLYSIS FLAG 80 (0-99); MEAN CELL HEMOGLOBIN 26.5 pg (27.9-34.1); MEAN CELL HEMOGLOBIN CONCENTR. 30.6 g/dL (32.4-36.7); MEAN CELL VOLUME 86.5 fL (81.5-99.8); MEAN PLATELET VOLUME 10.6 fL (8.7-11.7); PLATELET CLUMPS FLAG 0 (0-99); PLATELET COUNT 261 10^3/uL (150-400); RED BLOOD CELL COUNT 5.25 10^6/uL (4.40-6.38); RED CELL DISTRIBUTION WIDTH 14.4 % (11.5-15.2)
[2017-07-08 05:31] LABS: ANION GAP 11 mEq/L (8-16); CALCIUM 9.1 mg/dL (8.5-10.4); CARBON DIOXIDE 27 mEq/l (22-31); CHLORIDE 94 mEq/L (97-110); GLOMERULAR FILTRATION RATE 33; GLUCOSE 182 mg/dL (70-100); POTASSIUM 5.6 mEq/L (3.5-5.2); SODIUM 132 mEq/L (134-144)
[2017-07-08] MEDS: ASCORBIC ACID 500 MG TAB PO SCH (07:46)
[2017-07-08] MEDS: LOSARTAN POTASSIUM 50 MG TAB PO SCH (07:47)
[2017-07-08] MEDS: METOPROLOL SUCCINATE XR 25 MG TAB PO SCH (07:47)
[2017-07-08] MEDS: CLOPIDOGREL BISULFATE 75 MG TAB PO SCH (07:47)
[2017-07-08] MEDS: INSULIN GLARGINE 100 UNITS/ML SYRINGE SC SCH ×2 (07:48→20:51)
[2017-07-08] MEDS: INSULIN LISPRO 100 UNIT/ML SC SCH ×3 (07:48→17:07)
[2017-07-08] MEDS: VANCOMYCIN 125 MG/2.5 ML UDL PO SCH ×2 (07:48→20:48)
[2017-07-08] MEDS: FUROSEMIDE 40 MG TAB PO SCH (07:48)
[2017-07-08] MEDS: VANCOMYCIN 1.5 GM in D5W 250 ML IV SCH (07:49)
[2017-07-08] MEDS ORDERED: TESTOSTERONE 1% 5 GM GEL PKT TD SCH (09:00)
[2017-07-08] MEDS: PREGABALIN 150 MG CAP PO SCH ×2 (09:47→20:49)
[2017-07-08] MEDS: TRIAMCINOLONE ACET NASAL SCH (09:48)
[2017-07-08] MEDS: PANTOPRAZOLE SODIUM 40 MG TAB PO SCH (09:48)
[2017-07-08] MEDS ORDERED: LEVALBUTEROL 0.31 MG/3 ML DEYVIAL IH PRN (10:42)
--- NOTE | 2017-07-08 10:51 | SOAPPROG ---
SOAP Progress Note Assessment/Plan: Assessment: S/P Skin graft Osteomylitis 5th toe toe Wound Vac to foot NWB RLE Poorly controlled diabetes CAD CKD HLD HTN Hyperkalemia I appreciate the hospitalists managing his co-morbidities I changed the dressing on his thigh today My plan is for him to be in the hospital at least through Sunday S: Feeling well O: Sitting up in bed Donor site healthy. Placed mepilex transfer and tegaderm Wound vac in place Plan: 07/07/17 16:28 07/07/17 16:29 07/08/17 10:49 07/08/17 10:50 Objective: Vital Signs Temp Pulse Resp BP Pulse Ox 36.6 C 65 18 114/64 98 07/08/17 03:26 07/08/17 08:22 07/08/17 08:22 07/08/17 08:22 07/08/17 08:22 Laboratory Results 07/08/17 05:00 07/08/17 05:00 07/07/17 07/08/17 07/09/17 05:59 05:59 05:59 Intake Total 950 540 Output Total 7760 1570 Balance -1200 -1030 ICD10 Worksheet Patient Problems: Problems Problem Status Onset Cellulitis Acute Cellulitis Acute Chronic Disease Mgmt/Transitional Care Acute Clostridium difficile diarrhea Acute ~06/03/17 Laceration of left ear, external Acute Sepsis Acute
--- NOTE | 2017-07-08 12:09 | HOSPPROG ---
Hospitalist Progress Note Assessment/Plan: 72y male with skin graft. First encounter, chart reviewed. D/W Dr Wilkins. #DM poor control better today cont current insulin will increase meal time if needed #Hyperkalemia multifactorial hold cozaar change to renal diet recheck in am #Skin graft per surgery wound vac R 5th toe NWB #CAD stable hold cozaar #CKD elevated creatine cont to follow baseline 1.7 #HTN follow may need med changes #Hx of Cdiff monitor #Wheezing neb treatment #Dispo unclear, follow labs will get nephro consult if not improving Subjective: Feeling ok. No pain currently. Consindered about labs. Objective: Vital Signs Temp Pulse Resp BP Pulse Ox 35.3 C L 70 16 112/78 95 07/08/17 11:22 07/08/17 11:22 07/08/17 11:22 07/08/17 11:22 07/08/17 11:22 Laboratory Results 07/08/17 05:00 07/08/17 05:00 07/07/17 07/08/17 07/09/17 05:59 05:59 05:59 Intake Total 950 540 Output Total 2150 1570 Balance -1200 -1030 - Physical Exam Constitutional: not in pain, chronically ill appearing, obese Eyes: PERRL, anicteric sclera, EOMI Ears, Nose, Mouth, Throat: moist mucous membranes, hearing normal, ears appear normal Cardiovascular: No JVD, No tachycardia, No edema Respiratory: no respiratory distress, no rales or rhonchi, expiratory wheeze Gastrointestinal: normoactive bowel sounds, soft, non-tender abdomen, No ascites Skin: warm, other (wound vac), No mottled Musculoskeletal: normal joint ROM, no joint effusions, generalized weakness Neurologic: AAOx3 Psychiatric: interacting appropriately, not anxious, not encephalopathic ICD10 Worksheet Patient Problems: Problems Problem Status Onset Chronic Disease Mgmt/Transitional Care Acute Sepsis Acute Cellulitis Acute Laceration of left ear, external Acute Cellulitis Acute Clostridium difficile diarrhea Acute ~06/03/17
[2017-07-08] MEDS: ATORVASTATIN CALCIUM 40 MG TAB PO SCH (20:49)
[2017-07-08] MEDS: DULoxetine 30 MG CAP PO SCH (20:49)
[2017-07-08] MEDS: ASPIRIN 325 MG TAB PO SCH (20:49)
[2017-07-09] MEDS: HYDROmorphONE/DILAUDID 1 MG/ML SYR IVP PRN ×3 (06:07→21:49)
[2017-07-09 06:16] LABS: ALBUMIN 3.2 g/dL (3.5-5.0); ANION GAP 8 mEq/L (8-16); CALCIUM 8.8 mg/dL (8.5-10.4); CARBON DIOXIDE 30 mEq/l (22-31); CHLORIDE 96 mEq/L (97-110); CREATININE 1.5 mg/dL (0.7-1.3); GLOMERULAR FILTRATION RATE 46; GLUCOSE 169 mg/dL (70-100); POTASSIUM 5.5 mEq/L (3.5-5.2); SODIUM 134 mEq/L (134-144)
[2017-07-09] MEDS: PREGABALIN 150 MG CAP PO SCH ×2 (07:52→20:21)
[2017-07-09] MEDS: ASCORBIC ACID 500 MG TAB PO SCH (07:56)
[2017-07-09] MEDS: PANTOPRAZOLE SODIUM 40 MG TAB PO SCH (07:56)
[2017-07-09] MEDS: FUROSEMIDE 40 MG TAB PO SCH (07:56)
[2017-07-09] MEDS: CLOPIDOGREL BISULFATE 75 MG TAB PO SCH (07:57)
[2017-07-09] MEDS: METOPROLOL SUCCINATE XR 25 MG TAB PO SCH (07:57)
[2017-07-09] MEDS: INSULIN LISPRO 100 UNIT/ML SC SCH ×3 (07:58→18:00)
[2017-07-09] MEDS: INSULIN GLARGINE 100 UNITS/ML SYRINGE SC SCH ×2 (07:58→20:34)
[2017-07-09] MEDS: VANCOMYCIN 125 MG/2.5 ML UDL PO SCH ×2 (07:58→20:24)
[2017-07-09] MEDS: VANCOMYCIN 1.5 GM in D5W 250 ML IV SCH (08:05)
[2017-07-09] MEDS: TRIAMCINOLONE ACET NASAL SCH (08:08)
[2017-07-09] MEDS ORDERED: SILVER NITRATE APPLICATOR 1 APPL TP ONE (10:13)
--- NOTE | 2017-07-09 10:23 | SOAPPROG ---
SOAP Progress Note Assessment/Plan: Assessment: 72yo male with Hx of osteomyelitis of 5th right toe. s/p skin graft- Donor site right thigh to graft site right 5th toe. Wound vac in place. Will stay in place for 1 week and will be removed in office. NWB RLE Silver nitrate to donor site and dressing change today. Has outpatient appt with ID tomorrow. Dispo: to home. will return to office in 1 week for wound vac check. S: Feels well and is ready to go home. Says that he and his will want to manage the dressing changes of thigh on their own without homecare. No complaints or concerns. O: lying in bed, NAD Afebrile RRR MMM CTAB Right thigh donor site dressing with bloody drainage (on plavix and aspirin). Wound vac in place to right 5th toe Objective: Vital Signs Temp Pulse Resp BP Pulse Ox 36.3 C 70 20 114/70 98 07/09/17 07:47 07/09/17 07:57 07/09/17 07:47 07/09/17 07:57 07/09/17 07:47 Laboratory Results 07/08/17 05:00 07/09/17 05:15 07/08/17 07/09/17 07/10/17 05:59 05:59 05:59 Intake Total 540 740 Output Total 0059 2661 Balance -1030 -2160 ICD10 Worksheet Patient Problems: Problems Problem Status Onset Cellulitis Acute Cellulitis Acute Chronic Disease [facility]/Transitional Care Acute Clostridium difficile diarrhea Acute ~06/03/17 Laceration of left ear, external Acute Sepsis Acute
--- NOTE | 2017-07-09 12:24 | HOSPPROG ---
Hospitalist Progress Note Assessment/Plan: 72y male with skin graft. D/W surgery. #DM poor control better today cont current insulin will increase meal time if needed #Hyperkalemia multifactorial hold cozaar renal diet recheck in am #Skin graft per surgery wound vac R 5th toe NWB #CAD stable hold cozaar #CKD elevated creatine better today baseline 1.7 #HTN follow may need med changes #Hx of Cdiff monitor no signs currently #Wheezing neb treatment better #Dispo likely in am if potassium better needs wound vac Subjective: Feeling better today. Objective: Vital Signs Temp Pulse Resp BP Pulse Ox 36.6 C 70 20 102/65 97 07/09/17 11:23 07/09/17 11:23 07/09/17 11:23 07/09/17 11:23 07/09/17 11:23 Laboratory Results 07/08/17 05:00 07/09/17 05:15 07/08/17 07/09/17 07/10/17 05:59 05:59 05:59 Intake Total 540 740 Output Total 1570 2900 Balance -1030 -2160 - Physical Exam Constitutional: appears nourished, chronically ill appearing Eyes: PERRL, anicteric sclera Ears, Nose, Mouth, Throat: moist mucous membranes, hearing normal Cardiovascular: No JVD, No edema Respiratory: no respiratory distress, no rales or rhonchi Gastrointestinal: No tenderness, No ascites Skin: warm, normal color Musculoskeletal: no joint effusions, generalized weakness Neurologic: AAOx3 Psychiatric: interacting appropriately, not anxious, not encephalopathic ICD10 Worksheet Patient Problems: Problems Problem Status Onset Chronic Disease [facility]/Transitional Care Acute Sepsis Acute Cellulitis Acute Laceration of left ear, external Acute Cellulitis Acute Clostridium difficile diarrhea Acute ~06/03/17
[2017-07-09] MEDS: DULoxetine 30 MG CAP PO SCH (20:21)
[2017-07-09] MEDS: ASPIRIN 325 MG TAB PO SCH (20:21)
[2017-07-09] MEDS: ATORVASTATIN CALCIUM 40 MG TAB PO SCH (20:21)
[2017-07-09] MEDS: TESTOSTERONE 1% 5 GM GEL PKT TD SCH (20:24)
[2017-07-10 06:02] LABS: ANION GAP 8 mEq/L (8-16); CALCIUM 8.6 mg/dL (8.5-10.4); CARBON DIOXIDE 33 mEq/l (22-31); CHLORIDE 94 mEq/L (97-110); CREATININE 1.4 mg/dL (0.7-1.3); GLOMERULAR FILTRATION RATE 50; GLUCOSE 148 mg/dL (70-100); POTASSIUM 4.5 mEq/L (3.5-5.2); SODIUM 135 mEq/L (134-144)
--- NOTE | 2017-07-10 07:28 | SOAPPROG ---
SOAP Progress Note Assessment/Plan: Assessment: S/P Skin graft Osteomylitis 5th toe toe Wound Vac to foot - I will remove on . I need to see the wound to determine weight bearing status. For now, heel touch RLE Poorly controlled diabetes CAD CKD HLD HTN Hyperkalemia I appreciate the hospitalists managing his co-morbidities I changed the dressing on his thigh today My plan is for him to be in the hospital at least through due to coordination issues with weight bearing status, IV antibiotics and his other acute medical issues Wound vac changed by Dr. Noonan S: Wound vac was off last evening O: Lying in bed, at bedside Donor site healthy. Placed mepilex transfer and tegaderm Wound vac in place Plan: 07/07/17 16:28 07/07/17 16:29 07/08/17 10:49 07/08/17 10:50 07/10/17 07:27 07/10/17 21:40 Objective: Vital Signs Temp Pulse Resp BP Pulse Ox 36.8 C 70 18 120/63 98 07/09/17 23:09 07/09/17 23:09 07/09/17 23:09 07/09/17 23:09 07/09/17 23:09 Laboratory Results 07/08/17 05:00 07/10/17 05:20 07/09/17 07/10/17 07/11/17 05:59 05:59 05:59 Intake Total 740 800 Output Total 2900 1600 Balance -2160 -800 ICD10 Worksheet Patient Problems: Problems Problem Status Onset Cellulitis Acute Cellulitis Acute Chronic Disease Mgmt/Transitional Care Acute Clostridium difficile diarrhea Acute ~06/03/17 Laceration of left ear, external Acute Sepsis Acute
[2017-07-10] MEDS: METOPROLOL SUCCINATE XR 25 MG TAB PO SCH (09:15)
[2017-07-10] MEDS: ASCORBIC ACID 500 MG TAB PO SCH (09:17)
[2017-07-10] MEDS: PREGABALIN 150 MG CAP PO SCH ×2 (09:17→21:17)
[2017-07-10] MEDS: FUROSEMIDE 40 MG TAB PO SCH (09:17)
[2017-07-10] MEDS: PANTOPRAZOLE SODIUM 40 MG TAB PO SCH (09:17)
[2017-07-10] MEDS: CLOPIDOGREL BISULFATE 75 MG TAB PO SCH (09:17)
[2017-07-10] MEDS: VANCOMYCIN 125 MG/2.5 ML UDL PO SCH ×2 (09:18→21:19)
[2017-07-10] MEDS: INSULIN LISPRO 100 UNIT/ML SC SCH ×4 (09:18→18:11)
[2017-07-10] MEDS: TRIAMCINOLONE ACET NASAL SCH (09:18)
[2017-07-10] MEDS: INSULIN GLARGINE 100 UNITS/ML SYRINGE SC SCH ×2 (09:18→21:38)
[2017-07-10] MEDS: VANCOMYCIN 1.5 GM in D5W 250 ML IV SCH (10:19)
--- NOTE | 2017-07-10 11:27 | HOSPPROG ---
Hospitalist Progress Note Assessment/Plan: Patient is a 72-year-old male who had an open right foot wound was admitted for skin graft placement by Dr. Yuen. Today is my 1st encounter with the patient. Chart reviewed. * open right foot wound status post graft placement Has osteomyelitis to his 5th toe wound VAC * diabetes mellitus type 2 On sliding scale insulin Overall poor control/stable this morning * coronary artery disease Cozaar has been on hold/beta kristian cont * chronic kidney disease with a baseline creatinine of 1.5-1.7 His creatinine is 1.4 today * hyperkalemia Resolved/Cozaar has been on hold due to this * hypertension Blood pressure is 118/79 * history of C diff no c/o diarrhea *chronic pain on chronic/continuous opioids no complaints has some numbness to right foot *Plan: cont care as above Subjective: Shawn is not having very much pain today in his foot area/ overall well managed. Objective: Vital Signs Temp Pulse Resp BP Pulse Ox 36.6 C 63 16 118/79 94 07/10/17 07:27 07/10/17 09:15 07/10/17 07:27 07/10/17 09:15 07/10/17 07:27 Laboratory Results 07/08/17 05:00 07/10/17 05:20 07/09/17 07/10/17 07/11/17 05:59 05:59 05:59 Intake Total 740 800 Output Total 2900 1600 550 Balance -2160 -800 -550 - Physical Exam Constitutional: not in pain, chronically ill appearing Eyes: PERRL Ears, Nose, Mouth, Throat: hearing normal Cardiovascular: regular rate and rhythym Respiratory: no respiratory distress Gastrointestinal: normoactive bowel sounds Skin: warm, other (right foot w wound vac/ r thigh area with dressing in place ( graft site)) Neurologic: AAOx3 Psychiatric: interacting appropriately ICD10 Worksheet Patient Problems: Problems Problem Status Onset Chronic Disease Mgmt/Transitional Care Acute Sepsis Acute Cellulitis Acute Laceration of left ear, external Acute Cellulitis Acute Clostridium difficile diarrhea Acute ~06/03/17
[2017-07-10] MEDS ORDERED: VANCOMYCIN PHARMACY TO DOSE MISC SCH (12:00)
[2017-07-10] MEDS: DULoxetine 30 MG CAP PO SCH (21:17)
[2017-07-10] MEDS: ASPIRIN 325 MG TAB PO SCH (21:17)
[2017-07-10] MEDS: ATORVASTATIN CALCIUM 40 MG TAB PO SCH (21:17)
[2017-07-10] MEDS: VANCOMYCIN 1.25 GM in D5W 250 ML IV SCH (21:51)
[2017-07-11] MEDS: PANTOPRAZOLE SODIUM 40 MG TAB PO SCH (08:50)
[2017-07-11] MEDS: CLOPIDOGREL BISULFATE 75 MG TAB PO SCH (08:50)
[2017-07-11] MEDS: FUROSEMIDE 40 MG TAB PO SCH (08:51)
[2017-07-11] MEDS: PREGABALIN 150 MG CAP PO SCH ×2 (08:51→20:36)
[2017-07-11] MEDS: ASCORBIC ACID 500 MG TAB PO SCH (08:51)
[2017-07-11] MEDS: INSULIN GLARGINE 100 UNITS/ML SYRINGE SC SCH ×2 (08:52→20:34)
[2017-07-11] MEDS: METOPROLOL SUCCINATE XR 25 MG TAB PO SCH (08:52)
[2017-07-11] MEDS: VANCOMYCIN 125 MG/2.5 ML UDL PO SCH ×2 (08:53→20:34)
[2017-07-11] MEDS: TRIAMCINOLONE ACET NASAL SCH (09:21)
[2017-07-11] MEDS: INSULIN LISPRO 100 UNIT/ML SC SCH ×3 (09:53→18:17)
[2017-07-11] MEDS: VANCOMYCIN 1.25 GM in D5W 250 ML IV SCH (09:54)
--- NOTE | 2017-07-11 10:42 | SOAPPROG ---
SOAP Progress Note Assessment/Plan: Assessment: 72yo male with Hx of osteomyelitis of 5th right toe. s/p skin graft- Donor site right thigh to graft site right 5th toe. Wound vac in place. Will be removed . Heel touch RLE for weight bearing Wound vac changed last night by Dr. Noonan. Appreciate hospitalists managing comorbidities. Appreciate ID Dispo: will stay inpatient through S: No complaints. Pain well managed. Eager to try scooter today. O: lying in bed, NAD Afebrile RRR MMM CTAB Right thigh donor site dressing with slight bloody drainage. Much improved. Wound vac in place to right 5th toe with good suction. Objective: Vital Signs Temp Pulse Resp BP Pulse Ox 37.0 C 72 16 113/71 96 07/11/17 07:30 07/11/17 08:52 07/10/17 23:06 07/11/17 08:52 07/11/17 07:30 Laboratory Results 07/08/17 05:00 07/10/17 05:20 07/10/17 07/11/17 07/12/17 05:59 05:59 05:59 Intake Total 800 2000 Output Total 1600 1550 500 Balance -800 450 -500 ICD10 Worksheet Patient Problems: Problems Problem Status Onset Cellulitis Acute Cellulitis Acute Chronic Disease Mgmt/Transitional Care Acute Clostridium difficile diarrhea Acute ~06/03/17 Laceration of left ear, external Acute Sepsis Acute
--- NOTE | 2017-07-11 12:19 | HOSPPROG ---
Hospitalist Progress Note Assessment/Plan: Patient is a 72-year-old male who had an open right foot wound was admitted for skin graft placement by Dr. Yuen. * open right foot wound status post graft placement Has osteomyelitis to his 5th toe wound VAC * diabetes mellitus type 2 On sliding scale insulin and long acting Overall poor control/stable this morning * coronary artery disease Cozaar has been on hold/beta kristian cont * chronic kidney disease with a baseline creatinine of 1.5-1.7 His creatinine is 1.4 today * hyperkalemia Resolved/Cozaar has been on hold due to this * hypertension Blood pressure has been stable without Cozaar recommending stopping this for now patient will get a bp cuff and monitor at home * history of C diff no c/o diarrhea on oral vanco *chronic pain on chronic/continuous opioids no complaints has some numbness to right foot home meds resumed *Plan: would recommend stopping Cozaar for now and in OP / should f/u with her PCP Subjective: Anjel has no complaints/ feeling well. Objective: Vital Signs Temp Pulse Resp BP Pulse Ox 37.0 C 72 16 113/71 96 07/11/17 07:30 07/11/17 08:52 07/10/17 23:06 07/11/17 08:52 07/11/17 07:30 Laboratory Results 07/08/17 05:00 07/10/17 05:20 07/10/17 07/11/17 07/12/17 05:59 05:59 05:59 Intake Total 800 2000 Output Total 1600 1550 500 Balance -800 450 -500 - Physical Exam Constitutional: no apparent distress, appears nourished, not in pain Eyes: PERRL Ears, Nose, Mouth, Throat: hearing normal Cardiovascular: regular rate and rhythym, no murmur, rub, or gallop Respiratory: no respiratory distress, no rales or rhonchi Gastrointestinal: normoactive bowel sounds Skin: warm, other (wound vac in place on right foot) Neurologic: AAOx3 Psychiatric: interacting appropriately, not anxious ICD10 Worksheet Patient Problems: Problems Problem Status Onset Cellulitis Acute Cellulitis Acute Chronic Disease Mgmt/Transitional Care Acute Clostridium difficile diarrhea Acute ~06/03/17 Laceration of left ear, external Acute Sepsis Acute
--- NOTE | 2017-07-11 16:35 | PCMIDPN ---
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 Patient has been receiving vancomycin on [facility] [place] since late May. Scheduled to complete 6 weeks of IV vancomycin. Prefer to keep at 1.5 g IV Q 24 hours rather than change to q.12 hours dosing based on trough given that has underlying renal insufficiency and concerns will be at risk for nephrotoxicity. * History of C difficile colitis: Continue suppressive vancomycin while on antibiotic therapy at twice daily dosing. No signs or symptoms of recurrent colitis. 07/11/17 16:31 Subjective: Patient without specific complaints other than has experience wound VAC dysfunction but appears to be functioning properly currently. Objective: Vital Signs Temp Pulse Resp BP Pulse Ox 36.1 C 67 18 117/69 99 07/11/17 15:06 07/11/17 15:06 07/11/17 15:06 07/11/17 15:06 07/11/17 15:06 Laboratory Results 07/08/17 05:00 07/10/17 05:20 07/10/17 07/11/17 07/12/17 05:59 05:59 05:59 Intake Total 800 2000 Output Total 1600 1550 500 Balance -800 450 -500 Vancomycin (stop date 08/03/2017) Laboratory Tests 07/10/17 08:58 Vancomycin Trough 12.0 - Physical Exam General Appearance: alert, no apparent distress EENT: No thrush, No conjunctival petechiae Respiratory: lungs clear, No respiratory distress Extremities: other (Right thigh skin graft donor site dressed; right foot with wound VAC in place without surrounding erythema) Abdomen: non-tender, No distended - Line/s RUE PICC Lines: No drainage, No erythema ICD10 Worksheet Patient Problems: Problems Problem Status Onset Cellulitis Acute Cellulitis Acute Chronic Disease Mgmt/Transitional Care Acute Clostridium difficile diarrhea Acute ~06/03/17 Laceration of left ear, external Acute Sepsis Acute
[2017-07-11] MEDS: TESTOSTERONE 1% 5 GM GEL PKT TD SCH (20:33)
[2017-07-11] MEDS: ASPIRIN 325 MG TAB PO SCH (20:35)
[2017-07-11] MEDS: ATORVASTATIN CALCIUM 40 MG TAB PO SCH (20:36)
[2017-07-11] MEDS: DULoxetine 30 MG CAP PO SCH (20:36)
[2017-07-12 05:24] LABS: ANION GAP 9 mEq/L (8-16); CALCIUM 8.7 mg/dL (8.5-10.4); CARBON DIOXIDE 34 mEq/l (22-31); CHLORIDE 93 mEq/L (97-110); CREATININE 1.3 mg/dL (0.7-1.3); GLOMERULAR FILTRATION RATE 55; GLUCOSE 192 mg/dL (70-100); POTASSIUM 4.4 mEq/L (3.5-5.2); SODIUM 136 mEq/L (134-144)
[2017-07-12 05:29] LABS: % IMMATURE GRANULYOCYTES 0.2 % (0.0-1.1); ABSOLUTE IMMATURE GRANULOCYTES 0.01 10^3/uL (0.00-0.10); ADD DIFF? NO; ADD MORPH? NO; ADD SCAN? NO; ATYPICAL LYMPHOCYTE FLAG 0 (0-99); FRAGMENT RBC FLAG 0 (0-99); HEMATOCRIT 41.3 % (40.0-51.0); HEMOGLOBIN 12.8 g/dL (13.7-17.5); LEFT SHIFT FLG 0 (0-99); LIPEMIA HEMOLYSIS FLAG 80 (0-99); MEAN CELL HEMOGLOBIN 26.3 pg (27.9-34.1); MEAN CELL VOLUME 84.8 fL (81.5-99.8); MEAN PLATELET VOLUME 10.8 fL (8.7-11.7); PLATELET CLUMPS FLAG 0 (0-99); PLATELET COUNT 217 10^3/uL (150-400); RED BLOOD CELL COUNT 4.87 10^6/uL (4.40-6.38); RED CELL DISTRIBUTION WIDTH 14.1 % (11.5-15.2)
[2017-07-12] MEDS: VANCOMYCIN 125 MG/2.5 ML UDL PO SCH ×2 (09:05→20:26)
[2017-07-12] MEDS: VANCOMYCIN 1.5 GM in D5W 250 ML IV SCH (09:48)
[2017-07-12] MEDS: PREGABALIN 150 MG CAP PO SCH ×2 (09:52→20:25)
[2017-07-12] MEDS: METOPROLOL SUCCINATE XR 25 MG TAB PO SCH (09:52)
[2017-07-12] MEDS: OXYCODONE/APAP 5/325 TAB PO PRN ×2 (09:53→15:29)
[2017-07-12] MEDS: ASCORBIC ACID 500 MG TAB PO SCH (09:53)
[2017-07-12] MEDS: PANTOPRAZOLE SODIUM 40 MG TAB PO SCH (09:54)
[2017-07-12] MEDS: INSULIN GLARGINE 100 UNITS/ML SYRINGE SC SCH ×2 (09:54→20:25)
[2017-07-12] MEDS: CLOPIDOGREL BISULFATE 75 MG TAB PO SCH (09:54)
[2017-07-12] MEDS: FUROSEMIDE 40 MG TAB PO SCH (09:55)
--- NOTE | 2017-07-12 11:17 | PCMIDPN ---
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 Tolerating IV antibiotics well, creatinine much lower while patient is hospitalized. Likely due to improve control of diabetes. -- Continue IV vancomycin 1.5 g IV Q 24 through 08/03/2017 , patient is on daily vancomycin verses penicillin due to outpatient administration issues with IV penicillin continuous infusion. # renal insufficiency secondary to diabetes. discontinued Cozaar recently which could contribute to improved creatinine. Medications Vancomycin 1.5 g IV Q 24 Subjective: 72 year old /White male with insulin-dependent diabetes with a history of sepsis due to lower extremity cellulitis April of 2016 who had persistent diabetic foot ulcer associated with right 5th metatarsal osteomyelitis. Patient underwent right 5th toe amputation 05/25/2017. Cultures showed MSSA, Enterococcus and Corynebacterium but margin was negative for osteomyelitis. ID was asked to evaluate patient on 06/06/2017 for persistent redness and nonhealing wound. MRI was performed which showed possible abscess in the wound bed and possible osteo in the residual bone. Patient will return to the operating room 06/08/2017 with debridement and amputation of the 5th metatarsal head.Sure from the 5th metatarsal head was positive and corresponding path showed osteomyelitis without clear margin. Patient is currently undergoing IV vancomycin with a planned stop 08/03/2017. Objective: Vital Signs Temp Pulse Resp BP Pulse Ox 36.7 C 70 16 104/66 99 07/12/17 07:37 07/12/17 09:52 07/12/17 07:37 07/12/17 09:52 07/12/17 07:37 Laboratory Results 07/12/17 04:50 07/12/17 04:50 07/11/17 07/12/17 07/13/17 05:59 05:59 05:59 Intake Total 2000 700 Output Total 1550 1800 1100 Balance 450 -1100 -1100 - Physical Exam General Appearance: alert, no apparent distress, obese EENT: No scleral icterus, No thrush Respiratory: lungs clear, No accessory muscle use Cardiac/Chest: regular rate, rhythm Extremities: other ( right foot with wound VAC in place, no swelling, no erythema on surrounding visible skin) Abdomen: normal bowel sounds, non-tender, soft Skin: warm/dry, No diaphoresis, No rash Neuro/Psych: alert, normal mood/affect, oriented x 3 - Line/s RUE PICC Lines: No drainage, No erythema ICD10 Worksheet Patient Problems: Problems Problem Status Onset Cellulitis Acute Cellulitis Acute Chronic Disease [facility]/Transitional Care Acute Clostridium difficile diarrhea Acute ~06/03/17 Laceration of left ear, external Acute Sepsis Acute
--- NOTE | 2017-07-12 11:47 | HOSPPROG ---
Hospitalist Progress Note Assessment/Plan: Patient is a 72-year-old male who had an open right foot wound was admitted for skin graft placement by Dr. Yuen. * open right foot wound status post graft placement Has osteomyelitis to his 5th toe wound VAC * diabetes mellitus type 2 On sliding scale insulin and long acting Overall poor control/stable this morning * coronary artery disease Cozaar has been on hold/beta kristian cont * chronic kidney disease with a baseline creatinine of 1.5-1.7 His creatinine is 1.3 today * hyperkalemia Resolved/Cozaar has been on hold due to this * hypertension Blood pressure has been stable without Cozaar recommending stopping this for now patient will get a bp cuff and monitor at home * history of C diff no c/o diarrhea on oral vanco *chronic pain on chronic/continuous opioids no complaints has some numbness to right foot home meds resumed *Plan: would recommend stopping Cozaar for now and in OP / should f/u with her PCP Home when ok with surgery Subjective: Feels better today. No pain currently. Objective: Vital Signs Temp Pulse Resp BP Pulse Ox 36.7 C 70 16 104/66 99 07/12/17 07:37 07/12/17 09:52 07/12/17 07:37 07/12/17 09:52 07/12/17 07:37 Laboratory Results 07/12/17 04:50 07/12/17 04:50 07/11/17 07/12/17 07/13/17 05:59 05:59 05:59 Intake Total 2000 700 Output Total 1550 1800 1100 Balance 450 -1100 -1100 - Physical Exam Constitutional: chronically ill appearing, obese Eyes: PERRL, anicteric sclera Ears, Nose, Mouth, Throat: moist mucous membranes, hearing normal Cardiovascular: No JVD, No edema Respiratory: no respiratory distress, reduced air movement Gastrointestinal: No tenderness, No ascites Skin: warm, normal color Musculoskeletal: no joint effusions, generalized weakness Neurologic: AAOx3 Psychiatric: not anxious, not encephalopathic, thought process linear ICD10 Worksheet Patient Problems: Problems Problem Status Onset Chronic Disease Mgmt/Transitional Care Acute Sepsis Acute Cellulitis Acute Laceration of left ear, external Acute Cellulitis Acute Clostridium difficile diarrhea Acute ~06/03/17
[2017-07-12] MEDS: INSULIN LISPRO 100 UNIT/ML SC SCH ×3 (13:03→18:48)
[2017-07-12] MEDS: TRIAMCINOLONE ACET NASAL SCH (13:09)
--- NOTE | 2017-07-12 15:13 | SOAPPROG ---
SOAP Progress Note Assessment/Plan: Assessment: 72yo male with Hx of osteomyelitis of 5th right toe. s/p skin graft- Donor site right thigh to graft site right 5th toe. Wound vac in place. Will be removed today. Heel touch RLE for weight bearing Appreciate hospitalists managing comorbidities. Appreciate ID Dispo: Home tomorrow S: No complaints. Pain well managed. O: lying in bed, NAD Afebrile RRR MMM CTAB Right thigh donor site dressing with slight bloody drainage. Much improved. Wound vac in place to right 5th toe with good suction. Objective: Vital Signs Temp Pulse Resp BP Pulse Ox 36.7 C 70 16 104/66 99 07/12/17 07:37 07/12/17 09:52 07/12/17 07:37 07/12/17 09:52 07/12/17 07:37 Laboratory Results 07/12/17 04:50 07/12/17 04:50 07/11/17 07/12/17 07/13/17 05:59 05:59 05:59 Intake Total 2000 700 Output Total 1550 1800 1100 Balance 450 -1100 -1100 ICD10 Worksheet Patient Problems: Problems Problem Status Onset Cellulitis Acute Cellulitis Acute Chronic Disease [facility]/Transitional Care Acute Clostridium difficile diarrhea Acute ~06/03/17 Laceration of left ear, external Acute Sepsis Acute
[2017-07-12] MEDS: DULoxetine 30 MG CAP PO SCH (20:25)
[2017-07-12] MEDS: ATORVASTATIN CALCIUM 40 MG TAB PO SCH (20:25)
[2017-07-12] MEDS: ASPIRIN 325 MG TAB PO SCH (20:26)
[2017-07-13 07:28] VITALS: TEMP 97.8
[2017-07-13] MEDS: INSULIN GLARGINE 100 UNITS/ML SYRINGE SC SCH (07:58)
[2017-07-13] MEDS: VANCOMYCIN 125 MG/2.5 ML UDL PO SCH (07:59)
[2017-07-13] MEDS: INSULIN LISPRO 100 UNIT/ML SC SCH ×2 (07:59→17:08)
[2017-07-13] MEDS: PREGABALIN 150 MG CAP PO SCH (08:00)
[2017-07-13] MEDS: VANCOMYCIN 1.5 GM in D5W 250 ML IV SCH (08:00)
[2017-07-13] MEDS: ASCORBIC ACID 500 MG TAB PO SCH (08:00)
[2017-07-13] MEDS: METOPROLOL SUCCINATE XR 25 MG TAB PO SCH (08:00)
[2017-07-13] MEDS: FUROSEMIDE 40 MG TAB PO SCH (08:00)
[2017-07-13] MEDS: PANTOPRAZOLE SODIUM 40 MG TAB PO SCH (08:00)
[2017-07-13] MEDS: CLOPIDOGREL BISULFATE 75 MG TAB PO SCH (08:01)
[2017-07-13] MEDS ORDERED: HYDROmorphONE/DILAUDID 2 MG TAB PO PRN (10:13)
--- NOTE | 2017-07-13 10:32 | SOAPPROG ---
SOAP Progress Note Assessment/Plan: Assessment: 72yo male s/p debridement and skin graft to right foot wound, s/p recent 5th toe amputation, osteo. "Right thigh wounds stings, otherwise doing well". No fevers, no SOB, tolerating diet. Pain controlled but would like to try oral dilaudid for home rather than percocet. PE awake, alert Chest CTA B/L Ht RRR RLE Right thigh donor site dressing and right foot dressing dry, no surrounding erythema. Normal PT pulse to palpation. Plan: d/c to home today ABX pt to come to infusion center at [facility] for IV vanco per ID pain med scripts placed in chart dressings to stay intact/dry until seen in office early next week discussed with Dr Wilkins 07/13/17 10:27 Objective: Vital Signs Temp Pulse Resp BP Pulse Ox 36.6 C 61 16 123/67 H 96 07/13/17 07:26 07/13/17 08:00 07/13/17 07:26 07/13/17 08:00 07/13/17 07:26 Laboratory Results 07/12/17 04:50 07/12/17 04:50 07/12/17 07/13/17 07/14/17 05:59 05:59 05:59 Intake Total 700 1500 Output Total 1800 1100 Balance -1100 400 ICD10 Worksheet Patient Problems: Problems Problem Status Onset Cellulitis Acute Cellulitis Acute Chronic Disease [facility]/Transitional Care Acute Clostridium difficile diarrhea Acute ~06/03/17 Laceration of left ear, external Acute Sepsis Acute
[2017-07-13] MEDS: TRIAMCINOLONE ACET NASAL SCH (11:57)
--- NOTE | 2017-07-13 12:18 | HOSPPROG ---
Hospitalist Progress Note Assessment/Plan: Patient is a 72-year-old male who had an open right foot wound was admitted for skin graft placement by Dr. Yuen. * open right foot wound status post graft placement Has osteomyelitis to his 5th toe wound VAC * diabetes mellitus type 2 On sliding scale insulin and long acting Overall poor control/stable this morning * coronary artery disease Cozaar has been on hold/beta kristian cont * chronic kidney disease with a baseline creatinine of 1.5-1.7 His creatinine is 1.3 * hyperkalemia Resolved/Cozaar has been on hold due to this * hypertension Blood pressure has been stable without Cozaar recommending stopping this for now patient will get a bp cuff and monitor at home * history of C diff no c/o diarrhea on oral vanco *chronic pain on chronic/continuous opioids no complaints has some numbness to right foot home meds resumed *Plan: would recommend stopping Cozaar for now and in OP / should f/u with her PCP Home when ok with surgery Subjective: Feeling great. Eager to go home. Objective: Vital Signs Temp Pulse Resp BP Pulse Ox 36.6 C 61 16 123/67 H 96 07/13/17 07:26 07/13/17 08:00 07/13/17 07:26 07/13/17 08:00 07/13/17 07:26 Laboratory Results 07/12/17 04:50 07/12/17 04:50 07/12/17 07/13/17 07/14/17 05:59 05:59 05:59 Intake Total 700 1500 Output Total 1800 1100 500 Balance -1100 400 -500 - Physical Exam Constitutional: chronically ill appearing, obese Eyes: PERRL, anicteric sclera Ears, Nose, Mouth, Throat: moist mucous membranes, hearing normal Cardiovascular: No JVD, No edema Respiratory: no respiratory distress, reduced air movement Gastrointestinal: No tenderness, No ascites Skin: warm, other (wound vac) Musculoskeletal: no joint effusions, generalized weakness Neurologic: AAOx3 Psychiatric: interacting appropriately, not anxious, not encephalopathic ICD10 Worksheet Patient Problems: Problems Problem Status Onset Chronic Disease Mgmt/Transitional Care Acute Sepsis Acute Cellulitis Acute Laceration of left ear, external Acute Cellulitis Acute Clostridium difficile diarrhea Acute ~06/03/17
[2017-07-13 15:31] VITALS: BP 108/59; PULSE 59; RESP 20; O2SAT 97
== END 2017-07-13 17:18 | disposition home or self-care (01) | DRG 940 ==
LOC: F3E 10:01 → OBSVTOIN 07-07 16:44
PROVIDERS: ADMIT Surgery; ATTEND Surgery
DX: Z48.1 Encounter for planned postprocedural wound closure (principal); Z89.421 Acquired absence of other right toe(s); Z79.2 Long term (current) use of antibiotics; M86.671 Other chronic osteomyelitis, right ankle and foot; E11.65 Type 2 diabetes mellitus with hyperglycemia; E11.42 Type 2 diabetes mellitus with diabetic polyneuropathy; E11.69 Type 2 diabetes mellitus with other specified complication; N18.3 Chronic kidney disease, stage 3 (moderate); Z79.4 Long term (current) use of insulin; E87.5 Hyperkalemia; T46.4X5A Adverse effect of angiotensin-converting-enzyme inhibitors, initial encounter; I25.10 Atherosclerotic heart disease of native coronary artery without angina pectoris; Z79.02 Long term (current) use of antithrombotics/antiplatelets; Z79.82 Long term (current) use of aspirin; Z95.1 Presence of aortocoronary bypass graft; Z95.5 Presence of coronary angioplasty implant and graft; I10 Essential (primary) hypertension; K21.9 Gastro-esophageal reflux disease without esophagitis; G47.33 Obstructive sleep apnea (adult) (pediatric); E78.5 Hyperlipidemia, unspecified; Z79.891 Long term (current) use of opiate analgesic
CPT/HCPCS: 97116-GP; 97161-GP; 97166-GO; 97530-GO; 97530-GP; 97535-GO; G8978-GP-CJ; G8979-GP-CI; G8987-GO-CJ; G8988-GO-CI; G8989-GO-CI; J1170; J1815; J2250; J2704; J3010; J3370

== ENCOUNTER 2017-09-09 00:45 | Emergency (ER) | payer OTHER, MEDICARE ==
--- NOTE | 2017-09-09 01:15 | EDPHY ---
H & P Stated Complaint: THINKS HE IS CONFUSED. PT DENIES ANY ISSUES Time Seen by Provider: 09/09/17 01:11 HPI/ROS: Chief Complaint: Altered mental status HPI: 72-year-old male with a history of coronary artery disease, recent osteomyelitis of his right foot spasm post debridement skin grafting. Patient' s says that at 9 o'clock tonight he seemed to be confused, speaking gibberish. She says this is similar to an episode a urine half ago when he was septic. Patient symptoms have since resolved and she states that he is back to his baseline. Is of note that he is continuing to take Percocet for his pain and was taking some tonight. Patient is currently without complaints. He says he has recollection of events that he was just teasing his . He denies chest pain or shortness of breath. No fevers or chills. No nausea or vomiting. He is not oriented to date but states that he is retired and this is not unusual for him. His confirms that this is true. Per his she states that he is currently at his baseline. ROS: 10 point Review of Systems is negative except as noted in the HPI. PMH: Coronary artery disease, chronic pain, chronic kidney disease, C difficile colitis, type 2 diabetes, depression, diabetic neuropathy, osteomyelitis, GERD, hypertension, hyperlipidemia Social History: No smoking, no alcohol, no recreational drug use Family History: non-contributory Physical Exam: Gen: Awake, Alert, No Distress HEENT: Nose: no rhinorrhea Eyes: PERRLA, EOMI Mouth: Moist mucosa Neck: Supple, no JVD Chest: nontender, lungs clear to auscultation Heart: S1, S2 normal, no murmur Abd: Soft, non-tender, no guarding Back: no CVA tenderness, no midline tenderness Ext: no edema, non-tender, right thigh there is a well-appearing skin graft site which is healing. There is a small blister but there is no purulence or discharge. There is no surrounding erythema. There is healthy-appearing granulation tissue. Right foot wound site is a large open nonhealing wound. There is moderate erythema. There is no purulent discharge Skin: no rash Neuro: CN II-XII intact, Sensation grossly intact, Strength 5/5 in bilateral upper and lower extremities - Personal History Tetanus Vaccine Date: UNSURE - Medical/Surgical History Hx Asthma: Yes Hx Chronic Respiratory Disease: No Hx Diabetes: Yes Hx Cardiac Disease: Yes Hx Renal Disease: No Hx Cirrhosis: No Hx Alcoholism: No Hx HIV/AIDS: No Hx Splenectomy or Spleen Trauma: No Other PMH: coronary artery disease,Diabetes, renal insufficiency, hypertension, chronic pain, CABG, stents, peripheral neuropathY, HYPOXIA, obesity - Social History Smoking Status: Former smoker Constitutional: Initial Vital Signs Temperature (C) 37.4 C 09/09/17 00:48 Heart Rate 82 09/09/17 00:48 Respiratory Rate 18 09/09/17 00:48 Blood Pressure 134/70 H 09/09/17 00:48 O2 Sat (%) 87 L 09/09/17 00:48 O2 Delivery Mode Room Air Allergies/Adverse Reactions: hydroxyzine HCl [From Vistaril] Allergy (Intermediate, Verified 05/11/16 02:51) hydroxyzine pamoate [From Vistaril] Allergy (Intermediate, Verified 05/11/16 02: 51) flurazepam HCl [From Dalmane] Allergy (Mild, Verified 05/11/16 02:51) trazodone Allergy (Mild, Verified 05/11/16 02:51) propoxyphene HCl [From Darvon] Allergy (Verified 05/11/16 02:51) zolpidem tartrate [From Ambien] Allergy (Verified 05/11/16 02:51) Home Medications: Medication Instructions Recorded ATORVASTATIN CALCIUM [Lipitor 80 40 mg PO HS 06/05/11 mg] Aspirin [Aspirin 325 mg (*)] 325 mg PO HS 06/05/11 Clopidogrel Bisulfate [Plavix (*)] 75 mg PO DAILY 06/05/11 Pregabalin [LYRICA] 300 mg PO BID 06/05/11 Triamcinolone Acet Nasal [Nasacort 1 sprays NASAL DAILY 06/05/11 Aq] Metoprolol Succinate Xr [Toprol Xl 25 mg PO DAILY 01/03/15 25 mg (*)] Pantoprazole Sodium [Protonix 40mg 40 mg PO DAILY 01/03/15 (*)] DULoxetine [Cymbalta 30 MG (*)] 60 mg PO HS 05/11/16 Testosterone 5 gm TP Q2D 05/13/16 Insulin Glargine [Lantus 100 40 units SC BID #0 ml 06/11/17 UNITS/ML (*)] Insulin Lispro [humALOG LISPRO 100 4 unit SC TIDMEAL #1 btl 06/11/17 units/ml (*)] Furosemide [Lasix 40 MG (*)] 40 mg PO DAILY 07/06/17 oxyCODONE CR [Oxycontin] 80 mg PO BID #0 tab 07/13/17 Medical Decision Making ED Course/Re-evaluation: Patient is not complaining of pain in his throat. States that he had some dental work done 2 days ago is getting preparations for cramp. He has pain below his left jaw. He says it hurts to swallow. 72-year-old male with an episode of confusion which could be secondary to infection or possible medication induced. He has a leukocytosis here but no new changes per him on his foot. He is complaining of some throat pain here as well. CT scan of his neck is negative. Remainder of his labs are hips baseline. I have discussed with the patient the possibility of a recurrence of his osteomyelitis given his leukocytosis and confusion. Patient is adamantly refusing to stay in the hospital. I have explained this would be allow us to has surgery consult evaluating. He states that he does not want to stay. He has an appoint with Dr. Yuen on . He will return for worsening. He would otherwise prefer to leave against medical advice. I have given him precautions to return for any concerns. He will be discharged with follow-up already in place. - Data Points Laboratory Results: Laboratory Results 09/09/17 02:00 09/09/17 02:00 09/09/17 09/09/17 09/09/17 04:45 02:00 02:00 WBC 14.52 10^3/uL H 10^3/uL (3.80-9.50) RBC 4.93 10^6/uL 10^6/uL (4.40-6.38) Hgb 12.4 g/dL L g/dL (13.7-17.5) Hct 40.0 % % (40.0-51.0) MCV 81.1 fL L fL (81.5-99.8) MCH 25.2 pg L pg (27.9-34.1) MCHC 31.0 g/dL L g/dL (32.4-36.7) RDW 14.2 % % (11.5-15.2) Plt Count 270 10^3/uL 10^3/uL (150-400) MPV 10.6 fL fL (8.7-11.7) Neut % (Auto) 83.2 % H % (39.3-74.2) Lymph % (Auto) 8.5 % L % (15.0-45.0) Mcdonald % (Auto) 6.7 % % (4.5-13.0) Eos % (Auto) 1.0 % % (0.6-7.6) Baso % (Auto) 0.3 % % (0.3-1.7) Nucleat RBC Rel Count 0.0 % % (0.0-0.2) Absolute Neuts (auto) 12.08 10^3/uL H 10^3/uL (1.70-6.50) Absolute Lymphs (auto) 1.24 10^3/uL 10^3/uL (1.00-3.00) Absolute Monos (auto) 0.97 10^3/uL H 10^3/uL (0.30-0.80) Absolute Eos (auto) 0.14 10^3/uL 10^3/uL (0.03-0.40) Absolute Basos (auto) 0.05 10^3/uL 10^3/uL (0.02-0.10) Absolute Nucleated RBC 0.00 10^3/uL 10^3/uL (0-0.01) Immature Gran % 0.3 % % (0.0-1.1) Immature Gran # 0.04 10^3/uL 10^3/uL (0.00-0.10) Sodium 135 mEq/L mEq/L (134-144) Potassium 5.2 mEq/L mEq/L (3.5-5.2) Chloride 98 mEq/L mEq/L (97-110) Carbon Dioxide 29 mEq/l mEq/l (22-31) Anion Gap 8 mEq/L mEq/L (8-16) BUN 38 mg/dL H mg/dL (7-23) Creatinine 1.8 mg/dL H mg/dL (0.7-1.3) Estimated GFR 37 Glucose 174 mg/dL H mg/dL (70-100) Calcium 9.3 mg/dL mg/dL (8.5-10.4) Total Bilirubin 0.4 mg/dL mg/dL (0.1-1.4) AST 17 IU/L IU/L (17-59) ALT 36 IU/L IU/L (21-72) Alkaline Phosphatase 69 IU/L IU/L (38-126) Total Protein 7.0 g/dL g/dL (6.3-8.2) Albumin 3.9 g/dL g/dL (3.5-5.0) Urine Color YELLOW Urine Appearance CLEAR Urine pH 5.0 (5.0-7.5) Ur Specific [place] 1.020 (1.002-1.030) Urine Protein 1+ H (NEGATIVE) Urine Ketones NEGATIVE (NEGATIVE) Urine Blood NEGATIVE (NEGATIVE) Urine Nitrate NEGATIVE (NEGATIVE) Urine Bilirubin NEGATIVE (NEGATIVE) Urine Urobilinogen NEGATIVE EU EU (0.2-1.0) Ur Leukocyte Esterase NEGATIVE (NEGATIVE) Urine RBC 1-3 /hpf /hpf (0-3) Urine WBC 1-3 /hpf /hpf (0-3) Ur Epithelial Cells NONE SEEN /lpf /lpf (NONE-1+) Hyaline Casts 1-5 /lpf /lpf (0-1) Urine Glucose NEGATIVE (NEGATIVE) Medications Given: Discontinued Medications Acetaminophen (Tylenol) 1,000 mg PO EDNOW ONE Stop: 09/09/17 03:11 Last Admin: 09/09/17 03:10 Dose: 1,000 mg Departure - Departure Disposition: Home, Routine, Self-Care Clinical Impression: Leukocytosis, Altered mental status, Non-healing wound Condition: Good
[2017-09-09 02:13] LABS: % IMMATURE GRANULYOCYTES 0.3 % (0.0-1.1); ABSOLUTE IMMATURE GRANULOCYTES 0.04 10^3/uL (0.00-0.10); ADD DIFF? NO; ADD MORPH? NO; ADD SCAN? NO; ATYPICAL LYMPHOCYTE FLAG 0 (0-99); FRAGMENT RBC FLAG 0 (0-99); HEMOGLOBIN 12.4 g/dL (13.7-17.5); LEFT SHIFT FLG 0 (0-99); LIPEMIA HEMOLYSIS FLAG 80 (0-99); MEAN CELL HEMOGLOBIN 25.2 pg (27.9-34.1); MEAN CELL VOLUME 81.1 fL (81.5-99.8); MEAN PLATELET VOLUME 10.6 fL (8.7-11.7); PLATELET CLUMPS FLAG 0 (0-99); PLATELET COUNT 270 10^3/uL (150-400); RED BLOOD CELL COUNT 4.93 10^6/uL (4.40-6.38); RED CELL DISTRIBUTION WIDTH 14.2 % (11.5-15.2)
[2017-09-09 02:29] LABS: ALANINE AMINOTRANSFERASE 36 IU/L (21-72); ALBUMIN 3.9 g/dL (3.5-5.0); ALKALINE PHOSPHATASE 69 IU/L (38-126); ANION GAP 8 mEq/L (8-16); ASPARTATE AMINOTRANSFERASE 17 IU/L (17-59); BILIRUBIN,TOTAL 0.4 mg/dL (0.1-1.4); CALCIUM 9.3 mg/dL (8.5-10.4); CARBON DIOXIDE 29 mEq/l (22-31); CHLORIDE 98 mEq/L (97-110); CREATININE 1.8 mg/dL (0.7-1.3); GLOMERULAR FILTRATION RATE 37; GLUCOSE 174 mg/dL (70-100); POTASSIUM 5.2 mEq/L (3.5-5.2); SODIUM 135 mEq/L (134-144)
[2017-09-09] MEDS ORDERED: ACETAMINOPHEN 500 MG TAB ONE (03:09)
[2017-09-09] MEDS ORDERED: ACETAMINOPHEN 500 MG TAB PO ONE (03:10)
[2017-09-09] MEDS ORDERED: NS 1,000 ML IV ONE (03:52)
[2017-09-09] MEDS ORDERED: ONDANSETRON 4 MG/2 ML VIAL IVP PRN (04:49)
[2017-09-09] MEDS ORDERED: ONDANSETRON DISINTEGRATING 4 MG TAB PO PRN (04:49)
[2017-09-09] MEDS ORDERED: ACETAMINOPHEN 325 MG TAB PO PRN (04:49)
[2017-09-09 04:52] LABS: COLOR YELLOW; LEUKOCYTE ESTERASE,URINE NEGATIVE (NEGATIVE); NITRITE,URINE NEGATIVE (NEGATIVE)
[2017-09-09 05:53] VITALS: BP 126/74; PULSE 72; RESP 18; TEMP 97.9; O2SAT 95
[2017-09-09] MEDS ORDERED: INSULIN LISPRO 100 UNIT/ML SC SCH (08:00)
== END 2017-09-09 06:05 | disposition home or self-care (01) ==
LOC: UNDOADMOB 04:49
DX: T86.828 Other complications of skin graft (allograft) (autograft) (principal); D72.829 Elevated white blood cell count, unspecified; R41.82 Altered mental status, unspecified; I25.10 Atherosclerotic heart disease of native coronary artery without angina pectoris; N18.9 Chronic kidney disease, unspecified; I12.9 Hypertensive chronic kidney disease with stage 1 through stage 4 chronic kidney disease, or unspecified chronic kidney disease; J45.909 Unspecified asthma, uncomplicated; E11.22 Type 2 diabetes mellitus with diabetic chronic kidney disease; Z95.1 Presence of aortocoronary bypass graft; Z87.891 Personal history of nicotine dependence; Z79.82 Long term (current) use of aspirin; Z79.4 Long term (current) use of insulin; Y82.8 Other medical devices associated with adverse incidents

== ENCOUNTER → 2017-09-12 | Outpatient (CLI) | payer OTHER, MEDICARE | LOC: FIMAGING 08:28 | PROVIDERS: ATTEND Physician Assistant | DX: Z09 Encounter for follow-up examination after completed treatment for conditions other than malignant neoplasm (principal); Z87.39 Personal history of other diseases of the musculoskeletal system and connective tissue; Z89.9 Acquired absence of limb, unspecified ==

== ENCOUNTER 2018-05-07 08:28 | Day surgery (SDC) | payer OTHER, MEDICARE ==
[2018-05-07] MEDS ORDERED: THROMBIN (BOVINE) 20,000 UNIT SPRAY TP ONE (08:41)
[2018-05-07] MEDS ORDERED: CEFAZOLIN 2 GM/DEXTROSE/100 ML BAG IV ONE (09:21)
[2018-05-07] MEDS ORDERED: MIDAZOLAM 2 MG/2 ML VIAL ONE (10:33)
[2018-05-07] MEDS ORDERED: CALCIUM CHLORIDE 1 GM/10 ML INJ ONE (10:52)
[2018-05-07] MEDS ORDERED: THROMBIN (BOVINE) 5,000 UNIT VIAL TP ONE (10:52)
[2018-05-07] MEDS ORDERED: PROPOFOL/EMULSION 500 MG/50 ML BOTTLE IV ONE (10:53)
[2018-05-07] MEDS ORDERED: LIDOCAINE 2% 5 ML SDV ONE (10:58)
--- NOTE | 2018-05-21 16:26 | GOP ---
[f rep st] OPERATIVE REPORT DATE OF OPERATION: 05/07/2018 SURGEON: Otto Yuen MD PREOPERATIVE DIAGNOSIS: Peripheral vascular disease with open wound in the right foot. POSTOPERATIVE DIAGNOSIS: Peripheral vascular disease with open wound in the right foot. PROCEDURE PERFORMED: Excisional right foot debridement and placement of platelet gel. FINDINGS: GOOD GRANULATION TISSUE DESCRIPTION OF PROCEDURE: The patient was taken to the operating room where he received a satisfactory general laryngeal mask anesthesia by Dr. Kraft. He was placed in supine position, prepped and draped in the usual sterile fashion. A thick callus was sharply excised from around the base of this ulcer on the lateral aspect of his right foot, dissecting all back to good bleeding tissue. Hemostasis was obtained. The wound was then covered with platelet- rich protein gel and dressed with an occlusive dressing. He tolerated the procedure well, was taken to recovery room in good condition. There were no complications. /[id number]/MODL MTDD
== END 2018-05-07 13:35 | disposition home or self-care (01) ==
LOC: FSGY 08:28
PROVIDERS: ATTEND Surgery
PROC: 0JBQ0ZZ Excision of Right Foot Subcutaneous Tissue and Fascia, Open Approach (ICD-10-PCS; principal; 2018-05-07 09:45)
DX: E11.621 Type 2 diabetes mellitus with foot ulcer (principal); L97.511 Non-pressure chronic ulcer of other part of right foot limited to breakdown of skin; I73.9 Peripheral vascular disease, unspecified; N18.3 Chronic kidney disease, stage 3 (moderate); I12.9 Hypertensive chronic kidney disease with stage 1 through stage 4 chronic kidney disease, or unspecified chronic kidney disease; I25.810 Atherosclerosis of coronary artery bypass graft(s) without angina pectoris; K21.9 Gastro-esophageal reflux disease without esophagitis; E78.5 Hyperlipidemia, unspecified
CPT/HCPCS: J0690; J2250; J2704

== ENCOUNTER 2018-12-11 16:52 | Emergency (ER) | payer OTHER, MEDICARE ==
--- NOTE | 2018-12-11 17:12 | EDPHY ---
H & P Time Seen by Provider: 12/11/18 17:09 HPI/ROS: Chief complaint. Syncope HPI. Patient is 73-year-old male. Hospital having a blood flow study his right leg. He got up to put his socks on and had a brief syncopal episode. He did not have any chest pain. He has been sick for the last 5 days with cough and congestion body aches. Slight shortness of breath with his cough. Has not had a fever. He has no abdominal pain or vomiting or diarrhea. He feels well and back to normal. ROS 10 systems were reviewed and negative with the exception of the elements mentioned in the history of present illness Past Medical/Surgical History: Coronary artery disease, diabetes, chronic renal insufficiency, hypertension, chronic coronary artery bypass graft, peripheral neuropathy, chronic hypoxia osteomyelitis, C diff Social History: , nonsmoker, no alcohol Smoking Status: Former smoker Physical Exam: General Appearance: Alert pleasant well-developed male mild distress vital signs are stable. Eyes: Pupils equal and round no pallor or injection. ENT, Mouth: Mucous membranes are moist. Respiratory: No retractions. Slight inspiratory expiratory rhonchi Cardiovascular: Regular rate and rhythm. Gastrointestinal: Abdomen is soft and nontender, no masses, bowel sounds normal. Neurological: Awake and alert, sensory and motor exams grossly normal. Skin: Warm and dry, no rashes. Musculoskeletal: Neck is supple nontender. Extremities symmetrical, full range of motion. Psychiatric: Patient is oriented X 3, there is no agitation. Constitutional: Initial Vital Signs Temperature (C) 36.3 C 12/11/18 16:58 Heart Rate 60 12/11/18 16:58 Respiratory Rate 18 12/11/18 16:58 Blood Pressure 126/73 H 12/11/18 16:58 O2 Sat (%) 93 12/11/18 16:58 O2 Delivery Mode Nasal Cannula O2 (L/minute) 3 Allergies/Adverse Reactions: flurazepam HCl [From Dalmane] Allergy (Verified 12/11/18 16:55) Other-Enter Comments hydroxyzine HCl [From Vistaril] Allergy (Verified 12/11/18 16:55) Rash hydroxyzine pamoate [From Vistaril] Allergy (Verified 12/11/18 16:55) Rash propoxyphene HCl [From Darvon] Allergy (Verified 12/11/18 16:55) Other-Enter Comments trazodone Allergy (Verified 12/11/18 16:55) Other-Enter Comments zolpidem tartrate [From Ambien] Allergy (Verified 12/11/18 16:55) Other-Enter Comments Home Medications: Medication Instructions Recorded ATORVASTATIN CALCIUM [Lipitor 80 06/05/11 mg] Aspirin [Aspirin 325 mg (*)] 06/05/11 Clopidogrel Bisulfate [Plavix (*)] 06/05/11 Pregabalin [LYRICA] 06/05/11 Triamcinolone Acet Nasal [Nasacort 06/05/11 Aq] Metoprolol Succinate Xr [Toprol Xl 01/03/15 25 mg (*)] Pantoprazole Sodium [Protonix 40mg 01/03/15 (*)] DULoxetine [Cymbalta 30 MG (*)] 05/11/16 Testosterone 05/13/16 Furosemide [Lasix 40 MG (*)] 07/06/17 Insulin Glargine [Lantus 100 04/16/18 UNITS/ML] Insulin Lispro [humALOG LISPRO 100 04/16/18 units/ml (*)] oxyCODONE CR [Oxycontin] 04/16/18 Medical Decision Making - Diagnostics EKG Interpretation: Repeat EKG to shows normal sinus rhythm normal interval. Left axis deviation. QRS is normal there is no significant ST elevation or depression. No arrhythmia. The rate is 60 Imaging Results: Imaging Impressions Chest X-Ray 12/11/18 17:38 Impression: Suggestion of cardiac dysfunction or volume overload, with moderate to severe cardiomegaly and pulmonary vascular congestion. Procedures: IV normal saline, monitor ED Course/Re-evaluation: Re-evaluation 7:15 p.m. Patient is stable. He feels well and tells me he is ready to go home. His blood sugar was low at 66 and he has had orange juice and crackers. He he is offered admission but he multiple times tells me he is not saying any wants to go home. Risks and benefits of this are discussed. He is encouraged to return at any point. Differential Diagnosis: Syncope of unclear etiology. The patient has been somewhat sick with cough. No evidence for pneumonia on his chest x-ray. He has not had fever. He has not had chest pain and his EKG and troponin are nonacute. No evidence for DKA or significant hypo glycemia. - Data Points Laboratory Results: Laboratory Results 12/11/18 17:35 12/11/18 17:35 12/11/18 12/11/18 12/11/18 18:20 17:35 17:35 WBC 9.38 10^3/uL 10^3/uL (3.80-9.50) RBC 4.72 10^6/uL 10^6/uL (4.40-6.38) Hgb 11.9 g/dL L g/dL (13.7-17.5) Hct 38.2 % L % (40.0-51.0) MCV 80.9 fL L fL (81.5-99.8) MCH 25.2 pg L pg (27.9-34.1) MCHC 31.2 g/dL L g/dL (32.4-36.7) RDW 17.4 % H % (11.5-15.2) Plt Count 235 10^3/uL 10^3/uL (150-400) MPV 10.7 fL fL (8.7-11.7) Neut % (Auto) 63.8 % % (39.3-74.2) Lymph % (Auto) 17.2 % % (15.0-45.0) Ocean % (Auto) 16.6 % H % (4.5-13.0) Eos % (Auto) 1.5 % % (0.6-7.6) Baso % (Auto) 0.6 % % (0.3-1.7) Nucleat RBC Rel Count 0.0 % % (0.0-0.2) Absolute Neuts (auto) 5.98 10^3/uL 10^3/uL (1.70-6.50) Absolute Lymphs (auto) 1.61 10^3/uL 10^3/uL (1.00-3.00) Absolute Monos (auto) 1.56 10^3/uL H 10^3/uL (0.30-0.80) Absolute Eos (auto) 0.14 10^3/uL 10^3/uL (0.03-0.40) Absolute Basos (auto) 0.06 10^3/uL 10^3/uL (0.02-0.10) Absolute Nucleated RBC 0.00 10^3/uL 10^3/uL (0-0.01) Immature Gran % 0.3 % % (0.0-1.1) Immature Gran # 0.03 10^3/uL 10^3/uL (0.00-0.10) RBC/WBC/PLT Morphology TNP Platelet Estimate TNP Sodium 132 mEq/L L mEq/L (135-145) Potassium 4.1 mEq/L mEq/L (3.5-5.2) Chloride 97 mEq/L mEq/L (97-110) Carbon Dioxide 28 mEq/l mEq/l (22-31) Anion Gap 7 mEq/L mEq/L (6-14) BUN 34 mg/dL H mg/dL (7-23) Creatinine 1.6 mg/dL H mg/dL (0.7-1.3) Estimated GFR 43 Glucose 66 mg/dL L mg/dL (70-100) Calcium 8.3 mg/dL L mg/dL (8.5-10.4) POC Troponin I 0.01 ng/mL ng/mL (0.00-0.08) Medications Given: Discontinued Medications Sodium Chloride (Ns) 1,000 mls @ 0 mls/hr IV EDNOW ONE; Wide Open PRN Reason: Protocol Stop: 12/11/18 17:39 Last Admin: 12/11/18 17:50 Dose: 1,000 mls Point of Care Test Results: Chemistry 12/11/18 18:20 POC Troponin I 0.01 ng/mL ng/mL (0.00-0.08) Departure - Departure Disposition: Home, Routine, Self-Care Clinical Impression: Syncope Qualifiers: Syncope type: unspecified Qualified Code(s): R55 - Syncope and collapse Condition: Good Instructions: Syncope (ED) Additional Instructions: Continue regular medication. Return for another passing out episode, chest pain or shortness of breath or fever. Recheck by your regular physician in the next 1-2 days without fail Referrals: Kristina Isbell MD [Primary Care Provider] - 1-2 days without fail
[2018-12-11] MEDS ORDERED: NS 1,000 ML IV ONE (17:38)
[2018-12-11 17:48] LABS: PLATELET COUNT 235 10^3/uL (150-400)
--- NOTE | 2018-12-11 19:45 | CPEKG ---
Test Reason : OPEN Blood Pressure : / mmHG Vent. Rate : 060 BPM Atrial Rate : 059 BPM P-R Int : 178 ms QRS Dur : 100 ms QT Int : 408 ms P-R-T Axes : 030 004 037 degrees QTc Int : 408 ms Sinus rhythm Low voltage, precordial leads Confirmed by Wilfrid Hunt ([id number]) on 12/11/2018 7:45:16 PM Referred By: Confirmed By:Wilfrid Hunt
[2018-12-11 20:35] VITALS: BP 109/50
== END 2018-12-11 20:33 | disposition home or self-care (01) ==
DX: R55 Syncope and collapse (principal)
CPT/HCPCS: 84484-ER

== ENCOUNTER 2019-03-29 00:23 | Inpatient (IN) | payer OTHER, MEDICARE ==
[2019-03-29] MEDS ORDERED: LORazepam 2 MG/ML INJ IVP ONE (01:10)
[2019-03-29] MEDS ORDERED: NS 1,000 ML IV ONE ×2 (01:10→01:11)
[2019-03-29] MEDS ORDERED: LORazepam 2 MG/ML INJ ONE (01:11)
[2019-03-29 01:12] LABS: PLATELET COUNT 271 10^3/uL (150-400)
[2019-03-29] MEDS ORDERED: PIPERACILLIN/TAZO 3.375 GM/DEX 50 ML IV ONE (01:19)
[2019-03-29] MEDS ORDERED: VANCOMYCIN HCL/NORMAL SALINE 250 ML IV ONE (01:19)
[2019-03-29 01:29] LABS: INR 1.07 (0.83-1.16); PROTIME(PATIENT) 13.5 SEC (12.0-15.0)
[2019-03-29] MEDS ORDERED: OXYCODONE/APAP 5/325 TAB ONE (01:45)
[2019-03-29] MEDS ORDERED: IBUPROFEN 600 MG TAB PO ONE ×2 (01:45→01:46)
[2019-03-29] MEDS ORDERED: OXYCODONE/APAP 5/325 TAB PO ONE (01:47)
--- NOTE | 2019-03-29 01:49 | EDPHY ---
H & P Stated Complaint: Pain all over - Personal History Current Tetanus/Diphtheria Vaccine: Yes Current Tetanus Diphtheria and Acellular Pertussis (TDAP): Yes Tetanus Vaccine Date: UNSURE - Medical/Surgical History Hx Asthma: Yes Hx Chronic Respiratory Disease: No Hx Diabetes: Yes Hx Cardiac Disease: Yes Hx Renal Disease: No Hx Cirrhosis: No Hx Alcoholism: No Hx HIV/AIDS: No Hx Splenectomy or Spleen Trauma: No Other PMH: coronary artery disease,Diabetes, renal insufficiency, hypertension, chronic pain, CABG, stents, peripheral neuropathY, HYPOXIA, obesity - Social History Smoking Status: Former smoker Time Seen by Provider: 03/29/19 00:47 HPI/ROS: Chief complaint: Altered mental status, pain all over History of present illness: This is a 73-year-old male brought to the emergency department by EMS, accompanied by his for evaluation of altered mental status and pain all over. His reports up until today patient was in his usual state of health. Upon waking this morning he did not appear to be his normal self. He was somewhat out of it and angry. He was able to go about his daily activities including going to physical therapy but with these type symptoms waxing and waning. This evening they worsened and he started complained of pain throughout his body. On my evaluation patient is moaning and will not speak to me. Review of systems: Unable to obtain given level of consciousness (Armin Shearer) - Physical Exam Exam: General Appearance: Patient is shaking in bed. He appears chronically ill. Eyes: Pupils equal and round no pallor or injection. ENT, Mouth: Mucous membranes moist. Respiratory: There are no retractions, lungs are clear to auscultation. Cardiovascular: Regular rate and rhythm. Gastrointestinal: Abdomen is soft and non tender, no masses, bowel sounds normal. Neurological: The patient is not responsive to verbal stimuli Skin: Chronic wound to the plantar surface of the right foot, there is erythema to the anterior aspect of the right lower leg that is tender and warm to palpation. Musculoskeletal: Neck is supple non tender. Extremities are symmetrical, full range of motion. Psychiatric: He is not oriented. (Armin Shearer) Constitutional: Initial Vital Signs Temperature (C) 37.3 C 03/29/19 00:27 Heart Rate 88 03/29/19 00:27 Respiratory Rate 20 03/29/19 00:27 Blood Pressure 118/93 H 03/29/19 00:27 O2 Sat (%) 92 03/29/19 00:27 O2 Delivery Mode Nasal Cannula O2 (L/minute) 3 Allergies/Adverse Reactions: flurazepam HCl [From Dalmane] Allergy (Verified 03/29/19 00:27) Other-Enter Comments hydroxyzine HCl [From Vistaril] Allergy (Verified 03/29/19 00:27) Rash hydroxyzine pamoate [From Vistaril] Allergy (Verified 03/29/19 00:27) Rash propoxyphene HCl [From Darvon] Allergy (Verified 03/29/19 00:27) Other-Enter Comments trazodone Allergy (Verified 03/29/19 00:27) Other-Enter Comments zolpidem tartrate [From Ambien] Allergy (Verified 03/29/19 00:27) Other-Enter Comments Home Medications: Medication Instructions Recorded Aspirin [Aspirin 325 mg (*)] 325 mg PO HS 03/29/19 Atorvastatin Calcium [Lipitor 40 40 mg PO HS 03/29/19 mg (*)] Clopidogrel Bisulfate [Plavix (*)] 75 mg PO DAILY 03/29/19 DULoxetine [Cymbalta 60 MG (*)] 60 mg PO HS 03/29/19 Furosemide [Lasix 40 MG (*)] 40 mg PO HS 03/29/19 Insulin Glargine [Lantus] 50 unit SC BID 03/29/19 Insulin Lispro [Humalog] 12 unit SQ TIDMEAL 03/29/19 Metoprolol Succinate Xr [Toprol Xl 25 mg PO DAILY 03/29/19 25 mg (*)] Pantoprazole Sodium [Protonix 40mg 40 mg PO DAILY 03/29/19 (*)] Pregabalin [LYRICA] 300 mg PO BID 03/29/19 Testosterone [ANDROGEL 1% 5gm pkt 1 oziel TD Q2D 03/29/19 (*)] Triamcinolone Acetonide [Nasacort] 2 sprays NS DAILY 03/29/19 oxyCODONE HCL [Oxycontin] 40 mg PO BID 03/29/19 Medical Decision Making - Diagnostics Imaging: I viewed and interpreted images myself - Diagnostics Imaging Results: Imaging Impressions Lower Extremity MRI 03/29/19 10:17 Impression: Mild cellulitis dorsally. No evidence for osteomyelitis or abscess.. Postsurgical changes of partial resection of the fifth metatarsal and resection of the fifth toe. Other chronic findings as above. Preliminary results given by Dr. Eber Roque to Dr. Solitario Ballard at 1523 hours on 29 Mar 2019. ED Course/Re-evaluation: Patient seen in conjunction with my secondary supervising physician Dr. Norm Collazo. Patient presents to the emergency department with waxing and waning mentation and report of pain all over. On initial evaluation he was altered. He was shaking and moaning. He was given Ativan which significantly improved his symptoms. I was able to talk with him afterwards, he was able sit up in bed and speak with me clearly. He states he just feels poorly without specific complaint. Workup is concerning for infection with evidence of cellulitis to [place] [address]. After blood cultures were obtained he was started on Zosyn and vancomycin. He is admitted to the hospitalist service, Dr. Davis, for further care, patient voiced understanding and agreement with plan. (Armin Shearer) Differential Diagnosis: Included but limited to infectious pathology including skin infection, respiratory tract infection, urinary tract infection, electrolyte disturbances, rhabdomyolysis, dehydration (Armin Shearer) - Data Points Laboratory Results: Laboratory Results 03/30/19 09:05 03/30/19 05:04 Microbiology Results: MICROBIOLOGY 03/29/19 00:59 Blood Blood Culture - Preliminary Escherichia Coli 03/29/19 00:59 Blood Blood Panel (PCR) - Final Escherichia Coli 03/29/19 00:40 Blood Blood Culture - Preliminary Medications Given: Aspirin (Aspirin) 325 mg PO HS [facility] Stop: 09/25/19 20:59 Last Admin: 03/30/19 20:35 Dose: 325 mg Atorvastatin Calcium (Lipitor) 40 mg PO HS [facility] Stop: 09/25/19 20:59 Last Admin: 03/30/19 20:35 Dose: 40 mg Clopidogrel Bisulfate (Plavix) 75 mg PO DAILY [facility] Stop: 09/26/19 08:59 Last Admin: 03/31/19 08:48 Dose: 75 mg Duloxetine HCl (Cymbalta) 60 mg PO HS [facility] Stop: 09/25/19 20:59 Last Admin: 03/30/19 20:35 Dose: 60 mg Enoxaparin Sodium (Lovenox) 40 mg SC DAILY [facility] Stop: 09/26/19 09:14 Last Admin: 03/31/19 08:48 Dose: 40 mg Furosemide (Lasix) 40 mg PO HS [facility] Stop: 09/25/19 20:59 Last Admin: 03/30/19 20:35 Dose: 40 mg Sodium Chloride (Ns) 1,000 mls @ 100 mls/hr IV CONT [facility] Stop: 09/25/19 01:59 Last Admin: 03/29/19 04:34 Dose: 1,000 mls Ceftriaxone Sodium/Dextrose (Rocephin 1 Gm (Premix)) 50 mls @ 100 mls/hr IV DAILY [facility] PRN Reason: Protocol Stop: 04/30/19 08:59 Last Admin: 03/31/19 08:51 Dose: 50 mls Insulin Glargine (Lantus Syringe) 50 units SC BID [facility] Stop: 09/25/19 20:59 Last Admin: 03/31/19 08:46 Dose: 50 units Insulin Human Lispro (Humalog Lispro) 0 unit SC TIDMEAL [facility] PRN Reason: Protocol Stop: 09/25/19 07:59 Last Admin: 03/31/19 08:49 Dose: Not Given Metoprolol Succinate (Toprol Xl) 25 mg PO DAILY [facility] Stop: 09/26/19 08:59 Last Admin: 03/31/19 08:47 Dose: 25 mg Miscellaneous Medication (Triamcinolone Acetonide [Nasacort]) 2 sprays NS DAILY [facility] Stop: 09/26/19 08:59 Last Admin: 03/31/19 10:39 Dose: Not Given Oxycodone HCl (Oxycontin) 40 mg PO BID [facility] Stop: 04/08/19 20:59 Last Admin: 03/31/19 08:47 Dose: 40 mg Pantoprazole Sodium (Protonix) 40 mg PO DAILY [facility] Stop: 09/26/19 08:59 Last Admin: 03/31/19 08:48 Dose: 40 mg Pregabalin (Lyrica) 300 mg PO BID [facility] Stop: 09/25/19 20:59 Last Admin: 03/31/19 08:47 Dose: 300 mg Testosterone (Androgel 1%) 5 gm TD Q2D [facility] Stop: 09/27/19 08:59 Last Admin: 03/31/19 10:39 Dose: Not Given Discontinued Medications Sodium Chloride (Ns) 1,000 mls @ 0 mls/hr IV ONCE ONE PRN Reason: Wide Open Stop: 03/29/19 01:11 Last Admin: 03/29/19 01:14 Dose: 1,000 mls Sodium Chloride (Ns) 1,000 mls @ 0 mls/hr IV ONCE ONE PRN Reason: Wide Open Stop: 03/29/19 01:12 Last Admin: 03/29/19 01:14 Dose: 1,000 mls Vancomycin/Sodium Chloride (Vancomycin 1 Gm (Premix)) 250 mls @ 250 mls/hr IV EDNOW ONE PRN Reason: Protocol Stop: 03/29/19 02:18 Last Admin: 03/29/19 01:40 Dose: 250 mls Piperacillin/Tazobactam/Dextrose (Zosyn 3.375 Gm (Premix)) 50 mls @ 100 mls/hr IV EDNOW ONE PRN Reason: Protocol Stop: 03/29/19 01:48 Last Admin: 03/29/19 03:33 Dose: 50 mls Piperacillin/Tazobactam/Dextrose (Zosyn 3.375 Gm (Premix)) 50 mls @ 100 mls/hr IV Q6H [facility] PRN Reason: Protocol Stop: 04/28/19 08:59 Last Admin: 03/31/19 03:44 Dose: 50 mls Vancomycin HCl 1.25 gm/ Sodium (Chloride) 250 mls @ 166.667 mls/hr IV Q12H [facility] Stop: 04/28/19 13:59 Last Admin: 03/29/19 15:31 Dose: Not Given Vancomycin/Sodium Chloride (Vancomycin 1 Gm (Premix)) 250 mls @ 250 mls/hr IV Q12H [facility] PRN Reason: Protocol Stop: 04/28/19 14:59 Last Admin: 03/29/19 17:13 Dose: 250 mls Vancomycin/Sodium Chloride (Vancomycin 1 Gm (Premix)) 250 mls @ 250 mls/hr IV Q12H [facility] PRN Reason: Protocol Stop: 04/28/19 17:29 Last Admin: 03/30/19 06:03 Dose: 250 mls Ibuprofen (Motrin) 600 mg PO EDNOW ONE Stop: 03/29/19 01:47 Last Admin: 03/29/19 01:47 Dose: 600 mg Insulin Glargine (Lantus Syringe) 25 units SC DAILY [facility] Stop: 09/25/19 08:59 Last Admin: 03/29/19 09:46 Dose: 25 units Insulin Glargine (Lantus Syringe) 25 units SC HS [facility] Stop: 09/25/19 20:59 Last Admin: 03/29/19 20:06 Dose: Not Given Lorazepam (Ativan Injection) 1 mg IVP EDNOW ONE Stop: 03/29/19 01:11 Last Admin: 03/29/19 01:15 Dose: 1 mg Oxycodone HCl (Oxycontin) 40 mg PO ONCE ONE Stop: 03/29/19 10:31 Last Admin: 03/29/19 10:48 Dose: 40 mg Oxycodone/Acetaminophen (Percocet 5/325) 2 tab PO EDNOW ONE Stop: 03/29/19 01:48 Last Admin: 03/29/19 01:48 Dose: 2 tab Pregabalin (Lyrica) 300 mg PO ONCE ONE Stop: 03/29/19 10:31 Last Admin: 03/29/19 10:47 Dose: 300 mg Point of Care Test Results: Chemistry 03/30/19 03/30/19 03/29/19 11:32 07:45 19:14 POC Glucose 326 mg/dL H mg/dL 142 mg/dL H mg/dL 225 mg/dL H mg/dL (70-100) (70-100) (70-100) 03/29/19 03/29/19 11:51 09:27 POC Glucose 168 mg/dL H mg/dL 156 mg/dL H mg/dL (70-100) (70-100) Departure - Departure Disposition: [facility] Inpatient Acute Clinical Impression: Cellulitis Qualifiers: Site of cellulitis: extremity Site of cellulitis of extremity: lower extremity Laterality: right Qualified Code(s): L03.115 - Cellulitis of right lower limb Altered mental status Qualifiers: Altered mental status type: transient alteration of awareness Qualified Code(s) : R40.4 - Transient alteration of awareness Condition: Fair
[2019-03-29] MEDS ORDERED: ACETAMINOPHEN 500 MG TAB PO PRN (01:51)
[2019-03-29] MEDS ORDERED: ONDANSETRON 4 MG/2 ML VIAL IVP PRN (01:51)
[2019-03-29] MEDS ORDERED: ONDANSETRON DISINTEGRATING 4 MG TAB PO PRN (01:51)
[2019-03-29 01:52] LABS: CREATINE KINASE 183 IU/L (0-224)
[2019-03-29] MEDS ORDERED: D50W 25 GM/50 ML SYR IVP PRN (01:54)
[2019-03-29] MEDS ORDERED: NS 1,000 ML IV SCH (02:00)
--- NOTE | 2019-03-29 02:29 | PDGENHP ---
History and Physical - Chief Complaint AMS - History of Present Illness 73 yo M w/ hx of IDDM and chronic R foot ulcer presents with altered mental status. The history is mostly obtained from his as the patient's memory is currently impaired. He is answering questions and technically oriented but inattentive and with impaired memory. His tells me he woke up "grumpy". He was able to go to PT and then came home and took a nap. After waking up from his nap he was quite confused. Per his he was mostly moaning. At this point he was brought into the ED for evaluation. In the ED he was noted to have a low grade fever, leukocytosis, and a warm, erythematous RLE. He has a chronic ulcer involving the plantar aspect of his R foot. He follows with Dr. Yuen for this. he has also had a skin graft to his R bletran, the site of current erythema. Review of previous microbiologic data demonstrates enterococcus and MSSA. Case discussed with ED SUSANNE Shearer; records reviewed and summarized above. History Information - Allergies/Home Medication List Allergies/Adverse Reactions: flurazepam HCl [From Dalmane] Allergy (Verified 03/29/19 00:27) Other-Enter Comments hydroxyzine HCl [From Vistaril] Allergy (Verified 03/29/19 00:27) Rash hydroxyzine pamoate [From Vistaril] Allergy (Verified 03/29/19 00:27) Rash propoxyphene HCl [From Darvon] Allergy (Verified 03/29/19 00:27) Other-Enter Comments trazodone Allergy (Verified 03/29/19 00:27) Other-Enter Comments zolpidem tartrate [From Ambien] Allergy (Verified 03/29/19 00:27) Other-Enter Comments Home Medications: ATORVASTATIN CALCIUM [Lipitor 80 mg] 06/05/11 [Last Taken 07/05/17] Aspirin [Aspirin 325 mg (*)] 06/05/11 [Last Taken 07/05/17] Clopidogrel Bisulfate [Plavix (*)] 06/05/11 [Last Taken 07/06/17] Pregabalin [LYRICA] 06/05/11 [Last Taken 07/06/17] Triamcinolone Acet Nasal [Nasacort Aq] 06/05/11 [Last Taken 07/06/17] Metoprolol Succinate Xr [Toprol Xl 25 mg (*)] 01/03/15 [Last Taken 07/06/17] Pantoprazole Sodium [Protonix 40mg (*)] 01/03/15 [Last Taken 07/06/17] DULoxetine [Cymbalta 30 MG (*)] 05/11/16 [Last Taken 07/05/17] Testosterone 05/13/16 [Last Taken 07/05/17] Furosemide [Lasix 40 MG (*)] 07/06/17 [Last Taken 07/06/17] Insulin Glargine [Lantus 100 UNITS/ML] 04/16/18 [Last Taken Unknown] Insulin Lispro [humALOG LISPRO 100 units/ml (*)] 04/16/18 [Last Taken Unknown] oxyCODONE CR [Oxycontin] 04/16/18 [Last Taken Unknown] I have personally reviewed and updated: family history, medical history - Past Medical History coronary artery disease, diabetes type 2 - Surgical History Reports: amputation (R 5th toe), coronary bypass surgery Additional surgical history: RLE skin graft - Family History Positive for: diabetes type II - Social History Smoking Status: Former smoker Review of Systems Review of Systems: ROS: 10pt was reviewed & negative except for what was stated in HPI & below Physical Exam Physical Exam: Temp Pulse Resp BP Pulse Ox 38 C 86 18 153/75 H 97 03/29/19 02:00 03/29/19 02:00 03/29/19 02:00 03/29/19 02:00 03/29/19 02:00 Constitutional: obese, uncomfortable Eyes: PERRL, EOMI Ears, Nose, Mouth, Throat: moist mucous membranes, no oral mucosal ulcers Cardiovascular: regular rate and rhythym, no murmur, rub, or gallop Respiratory: no respiratory distress, clear to auscultation Gastrointestinal: normoactive bowel sounds, soft, non-tender abdomen Skin: warm, erythema (R beltran), other (Large ulcer plantar aspect R foot) Musculoskeletal: full muscle strength, no muscle tenderness Neurologic: AAOx3, No weakness Psychiatric: encephalopathic, poor memory Lab Data & Imaging Review 03/29/19 00:51 03/29/19 00:51 WBC 20.63 10^3/uL (3.80-9.50) H 03/29/19 00:51 RBC 5.25 10^6/uL (4.40-6.38) 03/29/19 00:51 Hgb 13.6 g/dL (13.7-17.5) L 03/29/19 00:51 Hct 43.2 % (40.0-51.0) 03/29/19 00:51 MCV 82.3 fL (81.5-99.8) 03/29/19 00:51 MCH 25.9 pg (27.9-34.1) L 03/29/19 00:51 MCHC 31.5 g/dL (32.4-36.7) L 03/29/19 00:51 RDW 15.5 % (11.5-15.2) H 03/29/19 00:51 Plt Count 271 10^3/uL (150-400) 03/29/19 00:51 MPV 10.0 fL (8.7-11.7) 03/29/19 00:51 Neut % (Auto) 89.7 % (39.3-74.2) H 03/29/19 00:51 Lymph % (Auto) 3.8 % (15.0-45.0) L 03/29/19 00:51 [place] % (Auto) 5.7 % (4.5-13.0) 03/29/19 00:51 Eos % (Auto) 0.1 % (0.6-7.6) L 03/29/19 00:51 Baso % (Auto) 0.2 % (0.3-1.7) L 03/29/19 00:51 Nucleat RBC Rel Count 0.0 % (0.0-0.2) 03/29/19 00:51 Absolute Neuts (auto) 18.49 10^3/uL (1.70-6.50) H 03/29/19 00:51 Absolute Lymphs (auto) 0.79 10^3/uL (1.00-3.00) L 03/29/19 00:51 Absolute Monos (auto) 1.18 10^3/uL (0.30-0.80) H 03/29/19 00:51 Absolute Eos (auto) 0.02 10^3/uL (0.03-0.40) L 03/29/19 00:51 Absolute Basos (auto) 0.04 10^3/uL (0.02-0.10) 03/29/19 00:51 Absolute Nucleated RBC 0.00 10^3/uL (0-0.01) 03/29/19 00:51 Immature Gran % 0.5 % (0.0-1.1) 03/29/19 00:51 Immature Gran # 0.11 10^3/uL (0.00-0.10) H 03/29/19 00:51 PT 13.5 SEC (12.0-15.0) 03/29/19 00:51 INR 1.07 (0.83-1.16) 03/29/19 00:51 APTT 29.9 SEC (23.0-38.0) 03/29/19 00:51 VBG Lactic Acid 1.9 mmol/L (0.7-2.1) 03/29/19 00:51 Sodium 136 mEq/L (135-145) 03/29/19 00:51 Potassium 4.4 mEq/L (3.5-5.2) 03/29/19 00:51 Chloride 99 mEq/L (97-110) 03/29/19 00:51 Carbon Dioxide 28 mEq/l (22-31) 03/29/19 00:51 Anion Gap 9 mEq/L (6-14) 03/29/19 00:51 BUN 26 mg/dL (7-23) H 03/29/19 00:51 Creatinine 1.5 mg/dL (0.7-1.3) H 03/29/19 00:51 Estimated GFR 46 03/29/19 00:51 Glucose 120 mg/dL (70-100) H 03/29/19 00:51 Calcium 9.3 mg/dL (8.5-10.4) 03/29/19 00:51 Total Bilirubin 0.8 mg/dL (0.1-1.4) 03/29/19 00:51 Creatine Kinase 183 IU/L (0-224) 03/29/19 00:51 Assessment & Plan Assessment: 73 yo M w/ IDDM, CAD, and chronic R foot wound presents with AMS found to have diabetic foot infection. Plan: 1. R diabetic foot infection - Presents with new R beltran erythema and warmth in the setting of chronic, large ulcer on plantar aspect of R foot. The patient has long history of chronic infection to RLE. Review of previous microbiologic data demonstrates enterococcus and MSSA. - Observe in SDU - Vancomycin and Zosyn initially - Blood cultures obtained - ID consult placed - Wound care consult placed 2. Acute metabolic encephalopathy - Related to infection; patient is oriented but inattentive and with poor memory. - Acute infectious treatment as above - Minimize centrally acting medications as able 3. IDDM - Takes insulin glargine 50 u BID + insulin lispro sliding scale TID as outpatient. - Will dose-reduce basal insulin to 1/2 dose (25 u BID) initially as patient will have reduced PO intake, increase as necessary - Insulin lispro SSI - Monitor BG ACHS; D50 IV PRN for hypoglycemia 4. CAD - S/p CABG; no active chest pain. On DAPT, BB, and statin as outpatient. - Continue home medications pending reconciliation 5. CKD, Stage III - Serum creatinine 1.5 on admission, near usual baseline values. - Avoid nephrotoxic agents, renally dose medications Diet - NPO pending improvement in mental status Code - Full Ppx - SCDs Dispo - Admit under observation status
[2019-03-29 05:58] LABS: PLATELET COUNT 236 10^3/uL (150-400)
[2019-03-29] MEDS ORDERED: INSULIN GLARGINE 100 UNITS/ML UNIT SC SCH ×2 (09:00→21:00)
[2019-03-29] MEDS: INSULIN LISPRO 100 UNIT/ML SC SCH ×3 (09:31→20:02)
[2019-03-29] MEDS: PIPERACILLIN/TAZO 3.375 GM/DEX 50 ML IV SCH ×3 (09:33→20:06)
--- NOTE | 2019-03-29 10:19 | HOSPPROG ---
Hospitalist Progress Note Assessment/Plan: * diabetic foot infection * metabolic encephalopathy * IDDM * CAD/cabg, currently stable * CKD III stable at baseline Objective: Vital Signs Temp Pulse Resp BP Pulse Ox 37 C 65 20 107/53 L 99 03/29/19 09:09 03/29/19 09:09 03/29/19 09:09 03/29/19 09:09 03/29/19 09:09 Microbiology 03/29/19 05:50 Respiratory Panel (PCR) - Final Nasal, Sinus - Swab No Organism Detected By Pcr Laboratory Results 03/29/19 05:45 03/29/19 05:45 03/28/19 03/29/19 03/30/19 06:59 06:59 06:59 Intake Total 2600 Output Total 300 Balance 2300 PT 13.5 SEC (12.0-15.0) 03/29/19 00:51 INR 1.07 (0.83-1.16) 03/29/19 00:51 ICD10 Worksheet Patient Problems: Problems Problem Status Onset Altered mental status Acute Cellulitis Acute Cellulitis Acute Chronic Disease [facility]/Transitional Care Acute Clostridium difficile diarrhea Acute ~06/03/17 Laceration of left ear, external Acute Leukocytosis Acute Non-healing wound Acute Sepsis Acute
[2019-03-29] MEDS ORDERED: PREGABALIN 150 MG CAP PO ONE (10:30)
[2019-03-29] MEDS ORDERED: GADOBUTROL 10 ML VIAL IVP ONE (12:56)
[2019-03-29] MEDS ORDERED: VANCOMYCIN 1.25 GM in NS 250 ML IV SCH (14:00)
[2019-03-29] MEDS ORDERED: VANCOMYCIN HCL/NORMAL SALINE 250 ML IV SCH (15:00)
--- NOTE | 2019-03-29 15:16 | GCON ---
[f rep st] CONSULTATION INFECTIOUS DISEASE CONSULTATION REFERRING PHYSICIAN: Matt Davis MD REASON FOR REFERRAL: Sepsis, right lower extremity cellulitis. HISTORY OF PRESENT ILLNESS: Patient is a 73-year-old male who was admitted to [facility] in the billet shearer hours of 03/29/2019. The patient presented with altered mental status and co mplaints of pain all over. The patient stated that he was feeling poorly upon presentation. His wif e expounded that the day prior to admission the patient was in his usual state of health, but upon wa juliane up in the morning of the day of admission, he was somewhat out of it and easily angered. By the time the patient was evaluated in the emergency room, he would only moan and not answer questions. Based on examination and leukocytosis, the patient was diagnosed with early sepsis and right lower ex tremity cellulitis. Patient was admitted and started empirically on IV vancomycin and Zosyn. This m orning he is more awake and alert. He is able to answer questions. He states he is feeling somewhat better. He states that he has peripheral neuropathy in both lower extremities, but has a feeling th at the right lower extremity is inflamed and painful. PAST MEDICAL HISTORY: 1. Coronary artery disease. 2. Type 2 diabetes. PAST SURGICAL HISTORY: 1. Status post right 5th toe amputation. 2. Status post coronary artery bypass grafting. 3. Status post right lower extremity skin grafting. ANTIBIOTICS: 1. Vancomycin. 2. Zosyn. ALLERGIES: The patient is allergic to flurazepam, hydroxyzine, propoxyphene, trazodone and zolpidem. SOCIAL HISTORY: The patient is a former tobacco user. No significant alcohol or drug use noted. FAMILY HISTORY: Reviewed and significant only for type 2 diabetes. REVIEW OF SYSTEMS: Other than that detailed above in History of Present Illness, a comprehensive 10- system review is negative. PHYSICAL EXAMINATION: VITAL SIGNS: Temperature maximum is 38, temperature current is 37.3, heart ra te is 68, respiratory rate is 22, blood pressure is 111/60. GENERAL: The patient is a well-formed, well-nourished, obese, older male in no acute distress. He is not toxic in appearance. He is alert and oriented x3. He is pleasant in demeanor. HEENT: Normocephalic for age. Atraumatic. No sclera l icterus. No oral lesion or drainage from the nares. Eyes: Lids and conjunctivae are within normal limits. Pupils are equal and round bilaterally. NECK: Supple. No meningismus. LUNGS: Clear to auscultation bilaterally with good effort. HEART: Regular rate and rhythm. No murmur, rub, or gall op noted. Patient has 1+ peripheral edema bilaterally. SKIN: Warm and dry to the touch. No rash n oted. Patient does have a chronic ulcer on the plantar aspect of his right foot. He has mild erythe ma stretching a third of the way up his right lower extremity. There is more tenderness on the lymph atic channels in the inguinal area on the right side. MUSCULOSKELETAL: No other muscle belly tender ness is noted. No joint line effusion or arthritis is seen. NEURO: Cranial nerves 2-12 seem to be intact. Peripheral sensation seems intact in the upper extremities, but definitely decreased in the lower extremities from mid beltran distal. LABORATORY DATA: Patient has a CBC dated 03/29/2019, which shows a white blood cell count of 22.1, h emoglobin of 13.2, hematocrit of 42.7, and a platelet count of 236. Differential is left-shifted wit h 89.7% segmented neutrophils. Serum chemistries on 03/29/2019, show sodium of 136, potassium 4.7, c hloride of 102, bicarbonate of 23, BUN of 25, and creatinine of 1.4. Urinalysis on 03/29/2019, shows 1+ protein and trace ketones, otherwise within normal limits. MICROBIOLOGIC DATA: Patient has blood cultures dated 03/29/2019, which are no growth to date. Nasal sinus swab for respiratory panel PCR is negative. ASSESSMENT: Right lower extremity cellulitis, probably secondary to a chronic open ulcer on the righ t lower extremity in the plantar aspect. There is evidence of some ascending lymphangitis on the rig ht side. Patient is currently covered broadly with both vancomycin and Zosyn. Will decrease the tro ugh goal from 15-20 to 10-15, and decrease the vancomycin dose from 1.25 g q.12 to 1 g q.12 given the relative chronic renal insufficiency. Will check a trough on the 2nd dose tomorrow. PLAN: 1. Continue both the Zosyn and vancomycin with a decrease in vancomycin dosage as above. 2. Follow appearance of the right lower extremity and follow the appearance of the patient's general clinical condition. 3. Follow up culture data as well. /[id number]
--- NOTE | 2019-03-29 15:52 | HOSPPROG ---
Hospitalist Progress Note Assessment/Plan: DIAGNOSES: * diabetic foot infection with fever: chronic ulcer on lateral aspect foot now with cellulitis of foot and leg - MRI with no abscess or osteo * metabolic encephalopathy due to above * anatomic deformity of foot likely contributing factor; has had "good results" on vasc studies done by Dr Yuen 6 mos ago * IDDM -sugars well controlled so far here * CAD/cabg, currently stable * CKD III stable at baseline * Chronic diabetic neuropathy on medicines for that PLANS: * Continue antibiotics; currently vancomycin and Zosyn * Elevation of foot, wound care * Await culture results * Will ask Dr. Yuen team to consult for wound management * Follow renal function closely careful monitoring of vancomycin levels * Follow sugars closely and adjust treatment as indicated Seen by me today on hospitals rounds as well as multidisciplinary rounds Reviewed with Dr. 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 Exam: alert oriented encephalopathy is nearly completely resolved at this time still some memory issue skin warm dry color ok resps not labored lungs clear BSs heart regular abd soft nondistended nontender, bowel sounds present limbs warm, no edema; lateral right foot at mid foot has a large chronic ulcer that at this point has a weepy drainage somewhat thick and opaque; there is notable cellulitis of the foot and ankle iv site ok Lab data: Creatinine stable at 1.4, electrolytes stable Blood sugars in good range so far 120-160 White count remains high 22,000, stable hemoglobin Microbiology: Blood cultures negative to date Imaging: I reviewed MRI images with Dr. 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, and there is evidence of the chronic lateral foot ulcer Objective: Vital Signs Temp Pulse Resp BP Pulse Ox 37.3 C 68 22 H 111/60 97 03/29/19 11:44 03/29/19 11:44 03/29/19 11:44 03/29/19 11:44 03/29/19 11:44 Microbiology 03/29/19 05:50 Respiratory Panel (PCR) - Final Nasal, Sinus - Swab No Organism Detected By Pcr Laboratory Results 03/29/19 05:45 05/04/19 05:45 03/28/19 03/29/19 03/30/19 06:59 06:59 06:59 Intake Total 2600 Output Total 300 Balance 2300 PT 13.5 SEC (12.0-15.0) 03/29/19 00:51 INR 1.07 (0.83-1.16) 03/29/19 00:51 - Time Spent With Patient Time Spent with Patient: greater than 35 minutes Time Spent with Patient: Greater than 35 minutes spent on this patients care, greater than 50% of time spent counseling, educating, and coordinating care regarding the above mentioned plan. ICD10 Worksheet Patient Problems: Problems Problem Status Onset Altered mental status Acute Cellulitis Acute Cellulitis Acute Chronic Disease Mgmt/Transitional Care Acute Clostridium difficile diarrhea Acute ~06/03/17 Laceration of left ear, external Acute Leukocytosis Acute Non-healing wound Acute Sepsis Acute
--- NOTE | 2019-03-29 16:25 | ASMTCASEMG ---
Living Arrangements What is your living Answers: With Spouse arrangement? Who do you live with? Type Of Residence What kind of residence do Answers: House you live in? Discharge Plan Comments Coordination Status Comments Notes: Patient is a 73yo male with hx of CAD and diabetes who comes with a chronic foot infection. Patient has been admitted for right diabetic foot infection, acute metabolic encephalopathy, IDDM, CAD,CKD. PT/wound care have been ordered for the patient. D/C plan TBD. CM will follow. Date Signed: 03/29/2019 04:25 PM Electronically Signed By:Moriah Randall LCSW
[2019-03-29] MEDS: VANCOMYCIN HCL/NORMAL SALINE 250 ML IV SCH (17:37)
--- NOTE | 2019-03-29 18:08 | GCON ---
[f rep st] CONSULTATION PULMONARY CRITICAL CARE CONSULTATION DATE OF CONSULTATION: 03/29/2019 HISTORY OF PRESENT ILLNESS: This patient is a 73-year-old male with diabetes and a chronic ulcer on his foot who was admitted yesterday with mental status changes and evidence of cellulitis in that madie t. He has been getting dressing changes. He does walk on it occasionally. He has had amputations o n that side in the past, but denied any fevers, chills, or sweats. He was given antibiotics and flui ds and his mental status improved. He had substantial pain today and was quite focal about his pain needs. REVIEW OF SYSTEMS: Otherwise negative. PAST MEDICAL HISTORY: Includes: 1. Diabetes. 2. Chronic ulcer of his left foot. 3. History of Enterococcus and MSSA bacteremia. 4. Coronary artery disease. SURGICAL HISTORY: Includes: 1. Skin graft on that side. 2. Toe amputations. 3. Coronary artery bypass graft. SOCIAL HISTORY: He has a history of smoking, but none currently. FAMILY HISTORY: Noncontributory. CURRENT MEDICATIONS: Include: 1. Tylenol. 2. Aspirin. 3. Lipitor. 4. Plavix. 5. Cymbalta. 6. Lasix. 7. Insulin. 8. Metoprolol. 9. Zofran. 10. OxyContin. 11. Protonix. 12. Zosyn. 13. Lyrica. 14. Normal saline. 15. Vancomycin. PHYSICAL EXAM: VITAL SIGNS: He has been afebrile. He was awake and alert, oriented x3, in no appar ent distress. Able to speak in full sentences without using accessory muscles for breathing. Pupils are equally round and reactive to light, nonicteric and noninjected. Mucous membranes moist without erythema or exudate. NECK: Supple without adenopathy or jugular vein distention. Breath sounds we re clear to auscultation bilaterally without wheezes, rubs or rales. HEART: Regular rate and rhythm without murmurs, rubs, gallops. ABDOMEN: Obese, but soft, nontender, nondistended without hepatosp lenomegaly. EXTREMITIES: Showed erythema and about a 3 cm ulceration on his right foot in the later al aspect. It was surrounding erythema. No obvious pus or unclear tract so there was no evidence of necrosis. His neuro exam was nonfocal and the skin was otherwise warm and dry. OBJECTIVE DATA: Includes a white count of 20.6, now 22.3, hematocrit of 43, and platelets of 236. B asic metabolic panel showed a creatinine of 1.5, down to 1.4 today. Urinalysis was negative. Blood cultures are pending, but otherwise negative at this time. ASSESSMENT/PLAN: 1. Cellulitis in a diabetic foot. Infectious Disease has already been consulted. We are maintainin g the antibiotics of vancomycin and Zosyn for now. We will follow up on his cultures. An MRI has be en performed looking for evidence of osteomyelitis, but this result is pending at this time. 2. Coronary artery disease. Appears to be quite stable at this time. No further workup is indicate d. /[id number]/MODL
[2019-03-29] MEDS: INSULIN GLARGINE 100 UNITS/ML UNIT SC SCH (20:02)
[2019-03-29] MEDS: ASPIRIN 325 MG TAB PO SCH (20:04)
[2019-03-29] MEDS: ATORVASTATIN CALCIUM 40 MG TAB PO SCH (20:04)
[2019-03-29] MEDS: DULoxetine 60 MG CAP PO SCH (20:05)
[2019-03-29] MEDS: FUROSEMIDE 40 MG TAB PO SCH (20:05)
[2019-03-29] MEDS: PREGABALIN 150 MG CAP PO SCH (20:06)
[2019-03-30] MEDS: PIPERACILLIN/TAZO 3.375 GM/DEX 50 ML IV SCH ×4 (03:41→20:35)
[2019-03-30] MEDS: VANCOMYCIN HCL/NORMAL SALINE 250 ML IV SCH (06:03)
[2019-03-30] MEDS: CLOPIDOGREL BISULFATE 75 MG TAB PO SCH (08:14)
[2019-03-30] MEDS: PANTOPRAZOLE SODIUM 40 MG TAB PO SCH (08:14)
[2019-03-30] MEDS: PREGABALIN 150 MG CAP PO SCH ×2 (08:14→20:35)
[2019-03-30] MEDS: METOPROLOL SUCCINATE XR 25 MG TAB PO SCH (08:15)
--- NOTE | 2019-03-30 08:21 | HOSPPROG ---
Hospitalist Progress Note Assessment/Plan: DIAGNOSES: * diabetic foot infection with fever: chronic ulcer on lateral aspect foot now with cellulitis of foot and leg - MRI with no abscess or osteo * E coli bacteremia * metabolic encephalopathy due to above * anatomic deformity of foot likely contributing factor; has had "good results" on vasc studies done by Dr Yuen 6 mos ago * IDDM -sugars well controlled so far here * CAD/cabg, currently stable * CKD III stable at baseline * Chronic diabetic neuropathy on medicines for that PLANS: * Continue antibiotics; currently vancomycin and Zosyn; w bacteremia will continue IV abx at least until abx sens results available * Elevation of foot, wound care * Await antibiotic sens results * have consulted surgery for wound eval * Follow renal function closely careful monitoring of vancomycin levels * Follow sugars closely and adjust treatment as indicated * can go to med surg Reviewed with Dr. 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, and there is evidence of the chronic lateral foot ulcer Objective: Vital Signs Temp Pulse Resp BP Pulse Ox 35.9 C L 61 16 100/50 L 96 03/30/19 03:43 03/30/19 08:15 03/30/19 03:43 03/30/19 08:15 03/30/19 03:43 Microbiology 03/29/19 05:50 Respiratory Panel (PCR) - Final Nasal, Sinus - Swab No Organism Detected By Pcr Laboratory Results 03/29/19 05:45 03/30/19 05:04 03/29/19 03/30/19 03/31/19 06:59 06:59 06:59 Intake Total 2600 2760 Output Total 300 3500 Balance 2300 -740 PT 13.5 SEC (12.0-15.0) 03/29/19 00:51 INR 1.07 (0.83-1.16) 03/29/19 00:51 ICD10 Worksheet Patient Problems: Problems Problem Status Onset Altered mental status Acute Cellulitis Acute Cellulitis Acute Chronic Disease Mgmt/Transitional Care Acute Clostridium difficile diarrhea Acute ~06/03/17 Laceration of left ear, external Acute Leukocytosis Acute Non-healing wound Acute Sepsis Acute
[2019-03-30] MEDS: INSULIN GLARGINE 100 UNITS/ML UNIT SC SCH ×2 (09:07→21:26)
[2019-03-30 09:32] LABS: PLATELET COUNT 190 10^3/uL (150-400)
[2019-03-30] MEDS: INSULIN LISPRO 100 UNIT/ML SC SCH ×3 (09:50→17:33)
[2019-03-30] MEDS: ENOXAPARIN 40 MG/0.4 ML SYR SC SCH (09:51)
[2019-03-30] MEDS: TRIAMCINOLONE ACETONIDE NS SCH (09:53)
--- NOTE | 2019-03-30 11:34 | PCMIDPN ---
Assessment/Plan: Assessment: Right lower extremity cellulitis with sepsis-patient appears that he is clinically improved today. Initial blood cultures are growing E coli. Sensitivities are pending. We will discontinue his vancomycin and proceed on with the Zosyn pending sensitivities. Plan: 1. Continue IV Zosyn. 2. Discontinue IV vancomycin. 3. Follow up on sensitivity panel results for E coli isolate. 03/30/19 11:32 Subjective: Patient is resting in his hospital bed. He feels much better than he did yesterday. Notes no new complaint. Denies fevers or chills. Objective: Vancomycin # 2 Zosyn # 2 Vital Signs Temp Pulse Resp BP Pulse Ox 36.7 C 61 19 100/50 L 96 03/30/19 08:00 03/30/19 08:15 03/30/19 08:00 03/30/19 08:15 03/30/19 08:00 Microbiology 03/29/19 05:50 Respiratory Panel (PCR) - Final Nasal, Sinus - Swab No Organism Detected By Pcr Laboratory Results 03/30/19 09:05 03/30/19 05:04 03/29/19 03/30/19 03/31/19 05:59 05:59 05:59 Intake Total 2600 2760 480 Output Total 300 3500 400 Balance 2300 -740 80 - Physical Exam General Appearance: WD/WN, alert, no apparent distress, non-toxic Respiratory: lungs clear, normal breath sounds, No respiratory distress Cardiac/Chest: regular rate, rhythm, No tachycardia Extremities: non-tender, inflammation, No normal inspection Skin: normal color, warm/dry, No rash Neuro/Psych: alert, normal mood/affect, oriented x 3 ICD10 Worksheet Patient Problems: Problems Problem Status Onset Altered mental status Acute Cellulitis Acute Cellulitis Acute Chronic Disease [facility]/Transitional Care Acute Clostridium difficile diarrhea Acute ~06/03/17 Laceration of left ear, external Acute Leukocytosis Acute Non-healing wound Acute Sepsis Acute
--- NOTE | 2019-03-30 14:36 | PDMN ---
Medical Necessity Medical necessity: [facility] M70 Cellulitis, A-2 day: 73 yo w/ IDDm and chronic R foot ulcer presents w/ AMS. Initially OBS for R diabetic foot infection but eval reveals bacteremia, now with cellulitis of foot and leg, ID consult, cont IV antibx. Meets [facility] IP criteria for cellulitis w/ bacteremia. Change to IP status @1415 per MD order. Hx CAD, DM2, CABG
--- NOTE | 2019-03-30 15:59 | GCON ---
[f rep st] CONSULTATION CHIEF COMPLAINT: Altered mental status. HISTORY OF PRESENT ILLNESS: "Anjel" is a 73-year-old male with a history of diabetes and chronic right foot ulcer, who presented yesterday with altered mental status. This patient is very well known to us and routinely comes to our office for wound care for the chronic right foot wound. The patient's reports that the pt became grumpy and "not himself" starting Sunday. He subsequently became progressively confused. She then brought him to the emergency department for further evaluation. He was found to have fever, leukocytosis, and an erythematous right lower extremity. We were asked to see this patient for wound care. PAST MEDICAL HISTORY: Coronary artery disease, diabetes type 2. PAST SURGICAL HISTORY: Right 5th toe amputation, right lower extremity skin graft, coronary artery bypass surgery. FAMILY HISTORY: Diabetes. SOCIAL HISTORY: This patient is a former smoker. REVIEW OF SYSTEMS: Ten-point review of systems performed and is negative, aside from what is in the HPI. MEDICATIONS: Plavix, atorvastatin, aspirin, Lyrica, Nasacort, metoprolol succinate XR, pantoprazole, Cymbalta, testosterone, furosemide, insulin glargine , insulin lispro, oxycodone. ALLERGIES: Hydroxyzine, Darvon, trazodone, Ambien, flurazepam. PHYSICAL EXAM: GENERAL: This is a now well-appearing 73-year-old male, resting comfortably in the hospital bed and in no acute distress. HEENT: Normocephalic, atraumatic. No gross hearing deficits, PERRLA. NECK: Trachea is midline. CARDIOVASCULAR: Regular rate and rhythm, no clicks, murmurs, or rubs. RESPIRATORY: Clear to auscultation bilaterally with no increased work of breathing. ABDOMEN: Soft, nontender, nondistended. Normoactive bowel sounds: MUSCULOSKELETAL: Moves all extremities equally x4. NEUROLOGIC: Alert and oriented x3. PSYCHIATRIC: Appropriate mood and affect. EXTREMITIES : Right lower extremity: Wound on the plantar aspect of the right foot appears clean with healthy granulation tissue throughout. There is circumferential callus tissue that has been debrided. Strong pedal pulses. Right calf and beltran appear with erythema and warmth. IMPRESSION AND PLAN: Anjel is a 73-year-old male who is well known to us regarding his chronic right foot wound. He is currently admitted with sepsis secondary to this wound. His cultures have grown Escherichia coli and he is now on Zosyn and vancomycin. His wound actually appears rather clean today. The erythema on his beltran and calf appears stable. He is now alert and oriented and afebrile. I have recommended daily wet-to-dry dressing changes. We will continue to follow patient while he is in the hospital. We have had a discussion previously about possible amputation. We will continue this discussion as an outpatient. This case was discussed with Dr. Wilkins, who agrees with plan. She will see the patient later today. I personally saw the patient and the cellulitus on his lower extremity did not appear to be progressing. Continue damp to dry. Ordered orthotic /[id number]/MODL MTDD
[2019-03-30] MEDS: ASPIRIN 325 MG TAB PO SCH (20:35)
[2019-03-30] MEDS: FUROSEMIDE 40 MG TAB PO SCH (20:35)
[2019-03-30] MEDS: ATORVASTATIN CALCIUM 40 MG TAB PO SCH (20:35)
[2019-03-30] MEDS: DULoxetine 60 MG CAP PO SCH (20:35)
[2019-03-31] MEDS: PIPERACILLIN/TAZO 3.375 GM/DEX 50 ML IV SCH (03:44)
[2019-03-31 07:52] LABS: PLATELET COUNT 213 10^3/uL (150-400)
[2019-03-31] MEDS: INSULIN GLARGINE 100 UNITS/ML UNIT SC SCH ×2 (08:46→21:49)
[2019-03-31] MEDS: METOPROLOL SUCCINATE XR 25 MG TAB PO SCH (08:47)
[2019-03-31] MEDS: PREGABALIN 150 MG CAP PO SCH ×2 (08:47→21:04)
[2019-03-31] MEDS: CLOPIDOGREL BISULFATE 75 MG TAB PO SCH (08:48)
[2019-03-31] MEDS: ENOXAPARIN 40 MG/0.4 ML SYR SC SCH (08:48)
[2019-03-31] MEDS: PANTOPRAZOLE SODIUM 40 MG TAB PO SCH (08:48)
[2019-03-31] MEDS: INSULIN LISPRO 100 UNIT/ML SC SCH ×3 (08:49→18:25)
--- NOTE | 2019-03-31 09:04 | SOAPPROG ---
SOAP Progress Note Assessment/Plan: Assessment/Plan: 73 Y M c history of sepsis thought to be secondary to a foot puncture wound, now admitted with diabetic foot infection/cellulitis and chronic lateral plantar ulcer with fever and confusion. MRI without abscess or osteomyelitis. 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 Improved with IV abx. Blood cultures with e. coli. Appreciate hospitalist and ID input and care. We've discussed BKA with Anjel in the past. It is not something he likes to entertain. He has also seen Dr. Dominique as an outpatient and is awaiting fitting for a [place] boot to off put pressure. I think ultimately he would benefit from BKA, but will try [place] boot first. Will continue to follow while in house. We also seen pt regularly as an outpatient. S: No complaints. Remembers hallucinating over the weekend. O: alert, nad no wob rrr abd soft, obese RLE erythema appears to have receded and is not bright (first time seeing patient this admission, but appears improved based on discussion with HUGH Butler , who saw patient over the weekend.) palpable DP pulse. Wound clean with granulation and mild surrounding callous 03/31/19 09:05 Objective: Vital Signs Temp Pulse Resp BP Pulse Ox 36.4 C 64 13 127/72 H 100 03/31/19 07:20 03/31/19 08:47 03/31/19 07:20 03/31/19 08:47 03/31/19 07:20 Laboratory Results 03/31/19 07:45 03/31/19 07:45 03/30/19 03/31/19 04/01/19 05:59 05:59 05:59 Intake Total 1342 Output Total 3250 Balance -1908 PT 13.5 SEC (12.0-15.0) 03/29/19 00:51 INR 1.07 (0.83-1.16) 03/29/19 00:51 ICD10 Worksheet Patient Problems: Problems Problem Status Onset Altered mental status Acute Cellulitis Acute Cellulitis Acute Chronic Disease [facility]/Transitional Care Acute Clostridium difficile diarrhea Acute ~06/03/17 Laceration of left ear, external Acute Leukocytosis Acute Non-healing wound Acute Sepsis Acute
[2019-03-31] MEDS: TRIAMCINOLONE ACETONIDE NS SCH (10:39)
[2019-03-31] MEDS: TESTOSTERONE 1% 5 GM GEL PKT TD SCH (10:39)
--- NOTE | 2019-03-31 13:45 | PCMIDPN ---
Assessment/Plan: Assessment: 73-year-old man with E coli bloodstream infection with source potentially the chronic right lower extremity foot wound the very well may have become colonized with gram-negative organisms as can be seen in diabetics and patient has to frequently access the care stump. Alternatively his abdominal pain to palpation suggests that could be an underlying intra-abdominal source. He has improved overall and will continue to monitor clinically his abdominal exam and determine if abdominal imaging is required. Overall expect 7 days of antimicrobial therapy with oral step-down at discharge if no contraindication. * Escherichia coli bacteremia; Improved * Right foot chronic ulceration with surrounding cellulitis at admission; Cellulitis improved * Chronic right foot ulceration * Diabetes mellitus type 2 with peripheral neuropathy * Sepsis present on admission; Resolved * Acute kidney injury present on admission; Resolved * Neutrophilic leukocytosis; Resolved * Mild eosinophilia; Possibly related to beta-lactam antibiotics * Acute lymphopenia; stable Plan: * Stop piperacillin/tazobactam * Start ceftriaxone 1gm daily * Reviewed in detail potential side effects of beta-lactam antibiotics to include: allergy, rash, nausea, antibiotic-associated diarrhea, Clostridioides difficile colitis. * Imaging of abdomen if abdominal pain persists and/or recurrence of fevers/ leukocytosis Prasanna Bowers MD Infectious Diseases 03/31/19 13:52 Subjective: No fever or chills in the past 24-hours. Tolerating oral diet with solids and liquids. No nausea. Two loose bowel movements in the past 24 hr. No rash. Appetite improving. Improved since admission but not back to baseline health. Objective: Vital Signs Temp Pulse Resp BP Pulse Ox 36.4 C 64 13 127/72 H 100 03/31/19 07:20 03/31/19 08:47 03/31/19 07:20 03/31/19 08:47 03/31/19 07:20 Laboratory Results 03/31/19 07:45 03/31/19 07:45 03/30/19 03/31/19 04/01/19 05:59 05:59 05:59 Intake Total 1342 550 Output Total 3250 Balance -1908 550 Ongoing monitoring for antimicrobial toxicity with: CBC, BMP, interval historical information, and interval physical exam. Discussed treatment/diagnostic testing and testing results with admitting provider(s). Personally reviewed interval laboratory results. - Physical Exam General Appearance: no apparent distress EENT: No scleral icterus Respiratory: No respiratory distress, No accessory muscle use, No crackles, No wheezing Neck: full range of motion, supple Cardiac/Chest: systolic murmur, No bradycardia, No tachycardia, No diastolic murmur Extremities: No inflammation Abdomen: other (Hypoactive bowel sounds, not distended, soft, mild tenderness to deep palpation in the right lower quadrant) Skin: other (Right lower extremity lateral foot with approximately 4 cm x 2 cm skin ulceration approximately 0.5 cm deep with a clean base, no surrounding erythema, no fluctuance areas, no induration) Neuro/Psych: alert, normal mood/affect, oriented x 3, No confused ICD10 Worksheet Patient Problems: Problems Problem Status Onset Altered mental status Acute Cellulitis Acute Cellulitis Acute Chronic Disease [facility]/Transitional Care Acute Clostridium difficile diarrhea Acute ~06/03/17 Laceration of left ear, external Acute Leukocytosis Acute Non-healing wound Acute Sepsis Acute
--- NOTE | 2019-03-31 16:45 | ASMTCMCOM ---
CM Note CM Note Notes: CM spoke with pt in the room. PT is recommending SNF or HHC with 18/06 supervision. Pt - who is no longer encephalopathic states that his is retired and would be able to provide supervision. Pt wishes to discuss with before sending referrals, as they have new cats whom he is missing. CM to follow. D/C Plan: HHC v SNF Date Signed: 03/31/2019 04:43 PM Electronically Signed By:Niharika Perkins
--- NOTE | 2019-03-31 18:37 | HOSPPROG ---
Hospitalist Progress Note Assessment/Plan: DIAGNOSES: * diabetic foot infection with fever: chronic ulcer on lateral aspect foot now with cellulitis of foot and leg - MRI with no abscess or osteo * E coli bacteremia * metabolic encephalopathy due to above * anatomic deformity of foot likely contributing factor; has had "good results" on vasc studies done by Dr Yuen 6 mos ago * IDDM -sugars well controlled so far here * CAD/cabg, currently stable * CKD III stable at baseline * Chronic diabetic neuropathy on medicines for that PLANS: * abx changed to rocephin as e coli sensitive, continue that * Elevation of foot, wound care * Follow sugars closely and adjust treatment as indicated * will review w surg and ID tomorrow - may be able to go to outpt IV abx later this week if stable SUBJECTIVE: feels much better no discomfort or neuro sxs OBJECTIVE Vitals reviewed: all 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 no 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, 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 Exam: alert oriented no signs of encephalopathy today skin warm dry color ok resps not labored lungs clear BSs heart regular abd soft nondistended nontender, bowel sounds present limbs warm, no edema; decrease in cellulitis; wound not eval'd by me today iv site ok Lab data: Creatinine better 1.3 Blood sugars remain in good range so far overall Microbiology: E coli in blood cultures sens pending Objective: Vital Signs Temp Pulse Resp BP Pulse Ox 36.6 C 59 L 18 129/74 H 97 03/31/19 15:14 03/31/19 15:14 03/31/19 15:14 03/31/19 15:14 03/31/19 15:14 Laboratory Results 03/31/19 07:45 03/31/19 07:45 03/30/19 03/31/19 04/01/19 06:59 06:59 06:59 Intake Total 1342 550 Output Total 3250 Balance -1908 550 PT 13.5 SEC (12.0-15.0) 03/29/19 00:51 INR 1.07 (0.83-1.16) 03/29/19 00:51 ICD10 Worksheet Patient Problems: Problems Problem Status Onset Altered mental status Acute Cellulitis Acute Cellulitis Acute Chronic Disease Mgmt/Transitional Care Acute Clostridium difficile diarrhea Acute ~06/03/17 Laceration of left ear, external Acute Leukocytosis Acute Non-healing wound Acute Sepsis Acute
[2019-03-31] MEDS: FUROSEMIDE 40 MG TAB PO SCH (21:04)
[2019-03-31] MEDS: ASPIRIN 325 MG TAB PO SCH (21:04)
[2019-03-31] MEDS: ATORVASTATIN CALCIUM 40 MG TAB PO SCH (21:04)
[2019-03-31] MEDS: DULoxetine 60 MG CAP PO SCH (21:04)
[2019-04-01 04:57] LABS: PLATELET COUNT 235 10^3/uL (150-400)
[2019-04-01] MEDS: INSULIN LISPRO 100 UNIT/ML SC SCH ×3 (08:14→18:23)
[2019-04-01] MEDS: INSULIN GLARGINE 100 UNITS/ML UNIT SC SCH ×2 (08:14→20:26)
[2019-04-01] MEDS: ENOXAPARIN 40 MG/0.4 ML SYR SC SCH (08:15)
[2019-04-01] MEDS: TESTOSTERONE 1% 5 GM GEL PKT TD SCH (08:15)
[2019-04-01] MEDS: METOPROLOL SUCCINATE XR 25 MG TAB PO SCH (08:15)
[2019-04-01] MEDS: PREGABALIN 150 MG CAP PO SCH ×2 (08:16→20:27)
[2019-04-01] MEDS: PANTOPRAZOLE SODIUM 40 MG TAB PO SCH (08:16)
[2019-04-01] MEDS: CLOPIDOGREL BISULFATE 75 MG TAB PO SCH (08:16)
[2019-04-01] MEDS: TRIAMCINOLONE ACETONIDE NS SCH (08:17)
--- NOTE | 2019-04-01 09:47 | ASMTCMCOM ---
CM Note CM Note Notes: CM spoke with pt and in the room. Pt demonstrate ability to walk independently with not adaptive devices. PT has recommended discharge to SNF or home with HHC and 24/7 supervision, but pt and feel it is not necessary. They are connected with [facility] and with outpatient therapies and would like to continue with this plan independently. CM to follow. D/C Plan: Independent with OP therapy and [facility]. Date Signed: 04/01/2019 09:45 AM Electronically Signed By:Niharika Perkins
--- NOTE | 2019-04-01 10:32 | PCMIDPN ---
Assessment/Plan: 1. E coli bacteremia secondary to right lower extremity cellulitis/chronic right foot wound: The wound itself does not look secondarily infected, but likely provided a portal of entry for cellulitis, and completely agree that wound is almost certainly colonized with this gram-negative. Continue ceftriaxone as is for now ; he is not ready for discharge yet, but perhaps in the next day or 2. Asked nurse to please re-dress his foot wound, and keep his right lower extremity elevated to decrease swelling. Patient has no underlying hardware, or evidence of bony involvement on MRI; he does not need repeat blood cultures, per se, to document clearance. Do not feel that E coli bacteremia is from an abdominal or urinary source. 2. Poorly controlled diabetes mellitus: Recent hemoglobin A1c of 10.7, which is almost certainly contributing to lack of wound healing. Patient states he has had arterial studies by Dr. Yuen that show good blood flow. Talked to him at length about this concept, and the importance of optimizing blood sugars moving forward. 3. Loose stool: Does not have diarrhea by definition; he is only going perhaps once or twice daily. No leukocytosis, fevers or other symptoms suggestive of C diff. Likely antibiotic associated. Over 25 min spent with this patient today. Subjective: Patient tells me "I feel like a new person."Having some loose stool, but is only going once or twice a day. No associated nausea, vomiting, abdominal pain or cramping. Feels much better. Acknowledges that he has no sensation in his lower extremity secondary to diabetic neuropathy. Told me the long story of how this originally happened, stepping on a nail in 2013, etc. Patient states that he has not gotten the wound to heal ever since, and is chronically followed by Dr. Dominique and Dr. Yuen. He also admits to poor control of his diabetes. Please see below. Objective: Ceftriaxone 1 g IV daily (antibiotics day 3) No fevers Vital Signs Temp Pulse Resp BP Pulse Ox 36.8 C 57 L 16 122/71 H 96 04/01/19 07:25 04/01/19 08:15 04/01/19 07:25 04/01/19 08:15 04/01/19 07:25 Laboratory Results 04/01/19 04:39 04/01/19 04:39 03/31/19 04/01/19 04/02/19 05:59 05:59 05:59 Intake Total 1342 825 Output Total 6873 5774 Balance -1308 -514 Blood cultures March 2911/29 bottles with E coli MANOJ to ceftriaxone less than 1, levofloxacin less than 1 - Physical Exam General Appearance: no apparent distress, obese EENT: No scleral icterus, No thrush Respiratory: lungs clear Cardiac/Chest: regular rate, rhythm, No systolic murmur Abdomen: non-tender, soft Skin: other (Right lower extremity: Mildly edematous compared to the left.insensate, pretibial dusky erythema that blanches, with associated warmth improved per patient. Lateral aspect of right foot is notable for the absence of the 5th toe. He has an approximately half-dollar size open ulceration with a clean base and clean borders, some of which have surrounding calluses and keratinized epithelium. There is some surrounding nonblanching erythema that the patient states is old.) ICD10 Worksheet Patient Problems: Problems Problem Status Onset Altered mental status Acute Cellulitis Acute Cellulitis Acute Chronic Disease [facility]/Transitional Care Acute Clostridium difficile diarrhea Acute ~06/03/17 Laceration of left ear, external Acute Leukocytosis Acute Non-healing wound Acute Sepsis Acute
--- NOTE | 2019-04-01 14:54 | HOSPPROG ---
Hospitalist Progress Note Assessment/Plan: 73y male with foot infection. First encounter, chart reviewed. D/W Dr Ballard and Dr Rain. #diabetic foot infection with fever: -chronic ulcer on lateral aspect foot now with cellulitis of foot and leg - MRI with no abscess or osteo #E coli bacteremia -cont CTX #metabolic encephalopathy due to above -resolved #anatomic deformity of foot likely contributing factor; -had "good results" on vasc studies done by Dr Yuen 6 mos ago #IDDM -sugars well controlled so far here #CAD/cabg, -currently stable #CKD III -stable at baseline #Chronic diabetic neuropathy -on medicines for that #Dispo -soon if cont improvement Subjective: Feeling better. Eager to go home. Objective: Vital Signs Temp Pulse Resp BP Pulse Ox 36.8 C 57 L 16 122/71 H 96 04/01/19 07:25 04/01/19 08:15 04/01/19 07:25 04/01/19 08:15 04/01/19 07:25 Laboratory Results 04/01/19 04:39 04/01/19 04:39 03/31/19 04/01/19 04/02/19 05:59 05:59 05:59 Intake Total 1342 825 Output Total 3250 1500 Balance -1908 -675 PT 13.5 SEC (12.0-15.0) 03/29/19 00:51 INR 1.07 (0.83-1.16) 03/29/19 00:51 - Physical Exam Constitutional: not in pain, chronically ill appearing, obese Eyes: PERRL, anicteric sclera, EOMI Ears, Nose, Mouth, Throat: moist mucous membranes, hearing normal, ears appear normal Cardiovascular: edema, No JVD, No tachycardia Respiratory: no respiratory distress, no rales or rhonchi, reduced air movement Gastrointestinal: normoactive bowel sounds, No tenderness, No ascites Skin: warm, erythema, pressure ulcer Musculoskeletal: normal joint ROM, no joint effusions, generalized weakness Neurologic: AAOx3 Psychiatric: interacting appropriately, not anxious, not encephalopathic ICD10 Worksheet Patient Problems: Problems Problem Status Onset Leukocytosis Acute Altered mental status Acute Non-healing wound Acute Chronic Disease Mgmt/Transitional Care Acute Sepsis Acute Cellulitis Acute Laceration of left ear, external Acute Cellulitis Acute Clostridium difficile diarrhea Acute ~06/03/17
--- NOTE | 2019-04-01 16:05 | SOAPPROG ---
SOAP Progress Note Assessment/Plan: Assessment/Plan: 73 Y M c history of sepsis thought to be secondary to a foot puncture wound, now admitted with diabetic foot infection/cellulitis and chronic lateral plantar ulcer with fever and confusion. MRI without abscess or osteomyelitis. 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 Improved with IV abx. Blood cultures with e. coli. Cellulitis resolved. Afebrile. Awaiting [place] boot. Seen by Dr. Yuen. Appreciate hospitalist and ID input and care. We've discussed BKA with Anjel in the past. It is not something he likes to entertain. Pt regularly as an outpatient. S: No complaints. Remembers hallucinating over the weekend. O: alert, nad no wob rrr abd soft, obese RLE erythema appears to have receded and is not bright, palpable pedal pulses 04/01/19 16:01 Objective: Vital Signs Temp Pulse Resp BP Pulse Ox 36.8 C 63 16 138/72 H 98 04/01/19 15:49 04/01/19 15:49 04/01/19 15:49 04/01/19 15:49 04/01/19 15:49 Laboratory Results 04/01/19 04:39 04/01/19 04:39 03/31/19 04/01/19 04/02/19 05:59 05:59 05:59 Intake Total 1342 825 Output Total 3250 1500 Balance -1908 -945 PT 13.5 SEC (12.0-15.0) 03/29/19 00:51 INR 1.07 (0.83-1.16) 03/29/19 00:51 ICD10 Worksheet Patient Problems: Problems Problem Status Onset Altered mental status Acute Cellulitis Acute Cellulitis Acute Chronic Disease [facility]/Transitional Care Acute Clostridium difficile diarrhea Acute ~06/03/17 Laceration of left ear, external Acute Leukocytosis Acute Non-healing wound Acute Sepsis Acute
[2019-04-01] MEDS: ASPIRIN 325 MG TAB PO SCH (20:27)
[2019-04-01] MEDS: FUROSEMIDE 40 MG TAB PO SCH (20:27)
[2019-04-01] MEDS: DULoxetine 60 MG CAP PO SCH (20:27)
[2019-04-01] MEDS: ATORVASTATIN CALCIUM 40 MG TAB PO SCH (20:27)
[2019-04-02 06:49] LABS: PLATELET COUNT 245 10^3/uL (150-400)
[2019-04-02 08:36] VITALS: BP 120/68
[2019-04-02] MEDS: ENOXAPARIN 40 MG/0.4 ML SYR SC SCH (09:39)
[2019-04-02] MEDS: INSULIN GLARGINE 100 UNITS/ML UNIT SC SCH (09:39)
[2019-04-02] MEDS: INSULIN LISPRO 100 UNIT/ML SC SCH ×2 (09:39→13:29)
[2019-04-02] MEDS: PANTOPRAZOLE SODIUM 40 MG TAB PO SCH (09:40)
[2019-04-02] MEDS: PREGABALIN 150 MG CAP PO SCH (09:40)
[2019-04-02] MEDS: CLOPIDOGREL BISULFATE 75 MG TAB PO SCH (09:41)
[2019-04-02] MEDS: METOPROLOL SUCCINATE XR 25 MG TAB PO SCH (09:41)
[2019-04-02] MEDS: TRIAMCINOLONE ACETONIDE NS SCH (10:58)
--- NOTE | 2019-04-02 15:02 | PCMIDPN ---
Assessment/Plan: # Diabetic foot infection right: did not examine today as dressing change right before my visit and multiple providers state no signs of cellulitis # E coli bacteremia: Source likely right foot wound. Antibiotic day 4. Currently on ceftriaxone. WBC normalized and now AF --DC on 6 more days levofloxacin 750mg daily, start 04/03. Discussed possible side effects of Levaquin, including photosensitivity and interaction with cations including calcium, zinc and magnesium. Patient is also advised to take with small amount food to minimize risk of nausea and avoid significant sun exposure by wearing hat, sunscreen. Levaquin and other antibiotics in this class have been associated with VERY RARE but disabling and potentially irreversible serious adverse reactions that have occurred together, including tendinitis and tendon rupture, peripheral neuropathy, and confusion. Discontinue levofloxacin immediately if you develop a serious reaction and call our office. --patient aware of his follow-up appointment in our office Sunday --dc ok from ID standpoint # h/o Cdiff: Patient will monitor for signs and symptoms of C diff in light of ongoing antibiotic therapy # Poorly controlled diabetes : discussed importance of sugar control with healing & infection prevention # mild eosinophilia but no rash or other lab abn. Continue to monitor as outpatient # ARF: resolved, no dose adjustments warranted for levofloxacin Subjective: patient well known to me from multiple prior admission, he feels well today without c/o and his is happy with his improvement Two looser stools today but not urgent, no abdominal pain, appetite stable Objective: Vital Signs Temp Pulse Resp BP Pulse Ox 36.7 C 59 L 18 120/68 96 04/02/19 08:35 04/02/19 08:35 04/02/19 08:35 04/02/19 08:35 04/02/19 08:35 Laboratory Results 04/02/19 05:17 04/02/19 05:17 04/01/19 04/02/19 04/03/19 05:59 05:59 05:59 Intake Total 825 650 Output Total 1500 1450 Balance -675 -800 - Physical Exam General Appearance: alert, no apparent distress, obese EENT: No thrush Respiratory: lungs clear, No accessory muscle use Cardiac/Chest: regular rate, rhythm, systolic murmur Extremities: No pedal edema, No swelling, No erythema Abdomen: normal bowel sounds, non-tender, soft Male Genitalia: No mcginnis Skin: No rash Neuro/Psych: alert, normal mood/affect, oriented x 3 - Time Spent With Patient Time Spent with Patient: greater than 35 minutes Time Spent with Patient: Greater than 35 minutes spent on this patients care, greater than 50% of time spent counseling, educating, and coordinating care regarding the above mentioned plan. ICD10 Worksheet Patient Problems: Problems Problem Status Onset Altered mental status Acute Cellulitis Acute Cellulitis Acute Chronic Disease Mgmt/Transitional Care Acute Clostridium difficile diarrhea Acute ~06/03/17 Laceration of left ear, external Acute Leukocytosis Acute Non-healing wound Acute Sepsis Acute
--- NOTE | 2019-04-02 20:12 | GDS ---
[f rep st] DISCHARGE SUMMARY DISCHARGE DIAGNOSES: 1. Escherichia coli bacteremia. 2. Diabetic foot infection on the right. 3. History of Clostridium difficile. 4. Poorly-controlled diabetes. 5. Mild eosinophilia. CONSULTATIONS: 1. General Surgery. 2. Infectious Disease. STUDIES AND PROCEDURES DONE: MRI of the lower extremity. PHYSICAL EXAMINATION: GENERAL: The patient is alert and oriented. VITAL SIGNS: Afebrile at 36.7, pul se 59, respiratory rate is 18, blood pressure is 120/68. He is saturating 96% on 2 L. I have seen and evaluated the patient on the day of discharge. HOSPITAL COURSE: The patient is a 73-year-old male who presented to the emergency room complaining o f weakness and foot infection. He was evaluated and diagnosed with: 1. Escherichia coli bacteremia. The source of this is likely secondary to the patient's foot infecti on. He has been treated with Rocephin during this hospitalization. We will continue on Levaquin in th e outpatient setting. I reviewed his disposition with the Infectious Disease doctor, who is in [facility] ent with this plan. 2. Diabetic foot infection. The patient received a consultation from General Surgery during this hos pitalization. He will follow up with them in the outpatient setting. His chronic ulcer is stable prio r to disposition. MRI was performed with no abscess or osteomyelitis identified. 3. Metabolic encephalopathy. This is in the setting of acute infection, has resolved. 4. Diabetes mellitus. The patient's blood sugar was controlled during this hospitalization. We will continue his home regimen. 5. History of coronary artery disease. No indication for further evaluation at this time. 6. Chronic kidney disease. This is stable and at his baseline. 7. Chronic diabetic neuropathy. Home medications were continued. DISPOSITION: The patient will be discharged home independently. PENDING STUDIES: There are no pending studies. DISCHARGE MEDICATIONS: Please refer to EMR form. I have provided prescriptions for the patient for L evaquin 750 mg daily, #6. He will initiate this on 04/03/2019. FOLLOWUP: Followup will be with Infectious Disease, Dr. Prasanna Bowers, as well as the patient's [facility] physician and his general surgeon. TIME SPENT WITH PATIENT: I spent greater than 35 minutes in the care, coordination, and management o f the patient's disposition. /[id number]/MODL
--- NOTE | 2019-04-07 12:23 | PQFORM ---
PHYSICIAN QUERY FORM Needs Your Response This query form is being sent to you to assure this patient record is coded properly. Please respond to the question below: [employer] QUESTION: Dear Sara, In their consults, both Carrie Rowan and Dr. Antoine state the patient was admitted with sepsis. This was not confirmed or denied by a hospitalist. Based on the clinical findings and your professional opinion, can the diagnosis of sepsis be added to the discharge summary? x__ yes no unknown other Thank you for clarifying, RUMA Wei HIM Coding INSTRUCTIONS FOR RESPONSE: Answer question by clicking on the "Edit Document" button. Move cursor to area below the stars. When complete, hit "Save." Click on the "Sign" button, then click "Sign" again. Type in your PIN and hit "Enter." MTDD
== END 2019-04-02 16:59 | disposition home or self-care (01) | DRG 871 ==
LOC: INTOOBSV 01:41 → F2N 03:44 → OBSVTOIN 03-30 14:15 → F3E 03-31 11:17
PROVIDERS: ADMIT Student in an Organized Health Care Education/Training Program; ATTEND Internal Medicine
DX: A41.51 Sepsis due to Escherichia coli [E. coli] (principal); E11.628 Type 2 diabetes mellitus with other skin complications; L03.115 Cellulitis of right lower limb; G93.41 Metabolic encephalopathy; B96.20 Unspecified Escherichia coli [E. coli] as the cause of diseases classified elsewhere; E11.621 Type 2 diabetes mellitus with foot ulcer; L97.519 Non-pressure chronic ulcer of other part of right foot with unspecified severity; N17.9 Acute kidney failure, unspecified; E11.22 Type 2 diabetes mellitus with diabetic chronic kidney disease; N18.3 Chronic kidney disease, stage 3 (moderate); E11.65 Type 2 diabetes mellitus with hyperglycemia; E11.40 Type 2 diabetes mellitus with diabetic neuropathy, unspecified; G62.9 Polyneuropathy, unspecified; I25.10 Atherosclerotic heart disease of native coronary artery without angina pectoris; Z95.1 Presence of aortocoronary bypass graft
CPT/HCPCS: 96365; 97116-GP; 97161-GP; 97530-GP; A9585; G0378; J0696; J1650; J1815; J2060; J2543; J3370